=== PATIENT | male | born 1955 | race American Indian/Alaskan Native ===

== ENCOUNTER 2016-03-16 11:36 | Inpatient (IN) | payer MEDICARE ==
--- NOTE | 2016-03-16 12:38 | Emergency Department Report ---
Chief Complaint: Extremity Problem,Nontraumatic Stated Complaint: RT LEG PAIN Time Seen by Provider: 03/16/16 12:32 - HPI History of Present Illness: 60-year-old male with past medical history of HIV CVA kidney failure comes in today for worsening of this lower leg edema as well as penile edema. Patient reports her pain as a 10 out of 10 on both legs as well as his penis. As well as his right side of his arm has swelling as well he does have right sided weakness. Patient did have a pass medical history of dialysis and was taken off a couple months ago. He is followed across the street at the nephrologists [facility]. - Exam Vital Signs: Vital Signs 03/16/16 12:17 Temperature 99 F Pulse Rate 94 H Respiratory 16 Rate Blood Pressure 164/109 O2 Sat by Pulse 100 Oximetry Physical Exam: He is alert and oriented 3 cardiovascular S1-S2 regular rate and rhythm respiratory bilateral crackles in the base. Extremities 3+ edema bilateral penis edema no scrotal edema appreciated. Left upper arm fistula patent MSE screening note: Focused history and physical exam performed. Due to findings the following was ordered: Evaluated with provider. We will order a CBC CMP and BNP chest x-ray PT PTT. ED Disposition for MSE Condition: Stable
[2016-03-16 13:14] LABS: Hematocrit 40.7 % (35.5-45.6); Hemoglobin 12.7 gm/dl (11.8-15.2); Mean Corpuscular HGB Conc 31 % (32-34); Mean Corpuscular Hemoglobin 36 pg (28-32); Mean Corpuscular Volume 116 fl (84-94); Platelet Count 185 K/mm3 (140-440); Red Blood Count 3.51 M/mm3 (3.65-5.03); Red Cell Distribution Width 15.2 % (13.2-15.2); White Blood Count 5.6 K/mm3 (4.5-11.0)
[2016-03-16 13:36] LABS: INR 1.35 (0.87-1.13); Partial Thromboplastin Time 29.6 Sec. (24.2-36.6)
[2016-03-16 13:39] LABS: Albumin/Globulin Ratio 0.8 %; BUN/Creatinine Ratio 15.26; Bilirubin,Total 0.3 mg/dL (0.1-1.2); Calcium 8.3 mg/dL (8.4-10.2); Chloride 115.1 mmol/L (98-107); Potassium 4.1 mmol/L (3.6-5.0); Total Protein 6.7 g/dL (6.3-8.2)
--- NOTE | 2016-03-16 13:59 | XRay Report ---
ROUTINE CHEST, TWO VIEWS: HISTORY: Short of breath. No comparison. Heart size and pulmonary vascularity are within normal limits. Linear atelectasis or scarring is noted in the lower lung zones, left greater than right. There is no evidence for pneumonia, pleural effusion or pneumothorax. No CHF. The thoracic cage is intact. IMPRESSION: Linear scarring versus linear atelectasis in the lower lung zones. No acute cardiopulmonary process.
[2016-03-16 14:25] LABS: Bilirubin,Urine NEG (Negative); Blood,Urine NEG (Negative); Ketones,Urine NEG (Negative); Leukocyte Esterase,Urine NEG (Negative); Mucus,Urine FEW /HPF; Nitrite,Urine NEG (Negative); Urobilinogen,Urine < 2.0 mg/dL (<2.0)
[2016-03-16] MEDS ORDERED: DUONEB 0.5 MG-3 MG/3 ML SOLN IH ONE (20:58)
[2016-03-16] MEDS ORDERED: LASIX IV ONE (20:58)
--- NOTE | 2016-03-16 21:00 | Emergency Department Report ---
HPI - General Chief Complaint: Extremity Problem,Nontraumatic Time Seen by Provider: 03/16/16 12:32 - HPI HPI: This is a 60-year-old Afro-J[place] male who presents the emergency department by EMS from his personal fci, with his twin sister at bedside, with complaint of a 5-6 week history of progressively worsening lower extremity and right upper extremity swelling, and some shortness of breath. Patient has a history of previous CVA with right-sided hemiparesis, renal insufficiency with previous hemodialysis use. He has not been on dialysis since May. He has seen his db2 developer, Dr. Singleton, regarding his current symptoms and was placed on some sodium bicarbonate in it and pain medication without any relief. His primary care doctor is Dr. Durand. No recent travel. He denies any chest pain, nausea, vomiting or rash. No history of DVT, PE, AZ. ED Past Medical Hx - Past Medical History Previous Medical History?: Yes Hx Hypertension: Yes Hx CVA: Yes Hx Renal Disease: Yes (not on dialysis) Hx HIV: Yes - Surgical History Past Surgical History?: Yes Additional Surgical History: dialysis shunt to left upper arm - Social History Smoking Status: Never Smoker Substance Use Type: None - Medications Home Medications: Home Medications Medication Instructions Recorded Confirmed Last Taken Type Abacavir Sulfate/Lamivudine 1 each PO DAILY 03/16/16 03/16/16 03/16/16 History [Epzicom TAB] AtorvaSTATin [Lipitor] 40 mg PO DAILY 03/16/16 03/16/16 03/16/16 History Efavirenz [Sustiva] 600 mg PO DAILY 03/16/16 03/16/16 03/16/16 History Ferrous Sulfate [Feosol] 325 mg PO QDAY 03/16/16 03/16/16 03/16/16 History Labetalol HCl 300 mg PO BID 03/16/16 03/16/16 03/16/16 History Mirtazapine 30 mg PO DAILY 03/16/16 03/16/16 03/16/16 History Multivitamin with Iron [Tab-A-[place] 1 each PO DAILY 03/16/16 03/16/16 03/16/16 History with Iron] Phenytoin [Dilantin] 100 mg PO Q8HR 03/16/16 03/16/16 03/16/16 History Quetiapine Fumarate [QUEtiapine 400 mg PO QDAY 03/16/16 03/16/16 03/16/16 History Fumarate] Sodium Bicarbonate 650 mg PO BID 03/16/16 03/16/16 03/16/16 History amLODIPine [Norvasc] 5 mg PO DAILY 03/16/16 03/16/16 03/16/16 History traMADol [Ultram] 50 mg PO BID 03/16/16 03/16/16 03/16/16 History ED Review of Systems ROS: Stated complaint: RT LEG PAIN Other details as noted in HPI Comment: All other systems reviewed and negative Constitutional: denies: chills, fever Eyes: denies: eye pain, eye discharge, vision change ENT: denies: ear pain, throat pain Respiratory: shortness of breath. denies: cough Cardiovascular: edema. denies: chest pain Gastrointestinal: denies: abdominal pain, nausea, diarrhea Genitourinary: denies: urgency, dysuria Musculoskeletal: denies: back pain, joint swelling, arthralgia Skin: denies: rash, lesions Neurological: denies: headache, weakness, paresthesias Physical Exam - Physical Exam Vital Signs: Vital Signs 03/16/16 03/16/16 03/16/16 12:17 20:32 20:39 Temperature 99 F Pulse Rate 94 H 96 H 99 H Respiratory 16 22 16 Rate Blood Pressure 164/109 Blood Pressure 163/115 157/103 [Right] O2 Sat by Pulse 100 100 95 Oximetry Physical Exam: GENERAL: The patient is well-developed well-nourished. HEENT: Normocephalic. Atraumatic. Extraocular motions are intact. Patient has moist mucous membranes. Pupils equal reactive to light bilaterally. NECK: Supple. Trachea is midline. CHEST/LUNGS: Clear to auscultation. There is no respiratory distress noted. HEART/CARDIOVASCULAR: Regular. There is no tachycardia. There is no gallop rub or murmur. ABDOMEN: Abdomen is soft, nontender. Patient has normal bowel sounds. There is no abdominal distention. SKIN: Patient has 2+ pitting edema to the bilateral lower extremities. Patient has anasarca of the right upper extremity. NEURO: The patient is awake, alert, and oriented. The patient is cooperative. The patient has no acute focal neurologic deficits. Chronic right-sided hemiparesis. The patient has some stuttering speech and/or aphasia that is chronic. MUSCULOSKELETAL: There is no tenderness or deformity. There is a patent dialysis fistula to the left upper extremity. There is no evidence of acute injury. ED Course Vital Signs 03/16/16 03/16/16 03/16/16 12:17 20:32 20:39 Temperature 99 F Pulse Rate 94 H 96 H 99 H Respiratory 16 22 16 Rate Blood Pressure 164/109 Blood Pressure 163/115 157/103 [Right] O2 Sat by Pulse 100 100 95 Oximetry - EJ/Peripheral Line Neck R Time Out Performed: Yes Indications: nurses unable to establis Skin Cleansed in Sterile Fashion: Yes Size: 20 Dressing Placed: Tegaderm, tape Patient Tolerated Procedure: well ED Medical Decision Making - Lab Data Result diagrams: 03/16/16 12:49 03/16/16 12:49 - EKG Data -: EKG Interpreted by Me EKG shows normal: sinus rhythm, axis, intervals, QRS complexes, ST-T waves ( flattened or slightly inverse T waves to the inferior and lateral leads) Rate: normal - EKG Data When compared to previous EKG there are: previous EKG unavailable Interpretation: other (flattened or slightly inverse T waves to the inferior and lateral leads) - Radiology Data Radiology results: image reviewed interpreted by me: His x-ray shows some mild cardiomegaly. There is some mild vascular congestion but no overt pleural effusions. No pneumonia and no pneumothorax. - Medical Decision Making 60-year-old male with progressively worsening shortness of breath and lower extremity swelling as well as right upper extremity swelling. History of dialysis but currently just has some renal insufficiency. Patient has significant edema but does not have significant pleural effusions. BNP is about 25,000. EKG does not show any signs of ST elevation AZ or dysrhythmia. Vital signs stable but does show some mild hypertension. Patient started on diuresis. Will be admitted to hospital for further evaluation and treatment. Accepted for admission by the hospitalist, Dr Michel. - Differential Diagnosis CHF, Venous Stasis, AZ, Pneumonia Critical Care Time: No Critical care attestation.: If time is entered above; I have spent that time in minutes in the direct care of this critically ill patient, excluding procedure time. ED Disposition Clinical Impression: Bilateral lower extremity edema Hypertension Qualifiers: Hypertension type: essential hypertension Qualified Code(s): I10 - Essential ( primary) hypertension Dyspnea Qualifiers: Dyspnea type: shortness of breath Qualified Code(s): R06.02 - Shortness of breath CKD (chronic kidney disease) Qualifiers: Chronic kidney disease stage: unspecified stage Qualified Code(s): N18.9 - Chronic kidney disease, unspecified CHF (congestive heart failure) Qualifiers: Congestive heart failure type: unspecified congestive heart failure type Congestive heart failure chronicity: acute Qualified Code(s): I50.9 - Heart failure, unspecified Disposition: OP ADMITTED IP TO THIS HOSP Is pt being admited?: Yes Condition: Stable Instructions: Hypertension (ED) Time of Disposition: 22:21
--- NOTE | 2016-03-16 22:03 | History and Physical Report ---
History of Present Illness Date of examination: 03/16/16 Date of admission: 03/16/16 Chief complaint: SOB, LE edema History of present illness: This is a 60-year-old Afro-Bhutanese male who presents the emergency department by EMS from his personal fdc, with his twin sister at bedside, with complaint of a 5-6 week history of progressively worsening lower extremity and right upper extremity swelling, and some shortness of breath. Patient has a history of previous CVA with right-sided hemiparesis, renal insufficiency with previous hemodialysis use and HIV. He has not been on dialysis since May 2014. He has seen his plastic parts fabricator, Dr. Ingram, regarding his current symptoms and was placed on some sodium bicarbonate and pain medication without any relief. His primary care doctor is Dr. Duarnd. No recent travel. He denies any chest pain, nausea, vomiting or rash. No history of DVT, PE, [place]. Past History Past Medical History: hypertension, renal failure, stroke, other (HIV) Past Surgical History: No surgical history Social history: no significant social history Family history: no significant family history Medications and Allergies Allergies Allergy/AdvReac Type Severity Reaction Status Date / Time No Known Allergies Allergy Unverified 03/16/16 12:22 Home Medications Medication Instructions Recorded Confirmed Last Taken Type Abacavir Sulfate/Lamivudine 1 each PO DAILY 03/16/16 03/16/16 03/16/16 History [Epzicom TAB] AtorvaSTATin [Lipitor] 40 mg PO DAILY 03/16/16 03/16/16 03/16/16 History Efavirenz [Sustiva] 600 mg PO DAILY 03/16/16 03/16/16 03/16/16 History Ferrous Sulfate [Feosol] 325 mg PO QDAY 03/16/16 03/16/16 03/16/16 History Labetalol HCl 300 mg PO BID 03/16/16 03/16/16 03/16/16 History Mirtazapine 30 mg PO DAILY 03/16/16 03/16/16 03/16/16 History Multivitamin with Iron [Tab-A-[place] 1 each PO DAILY 03/16/16 03/16/16 03/16/16 History with Iron] Phenytoin [Dilantin] 100 mg PO Q8HR 03/16/16 03/16/16 03/16/16 History Quetiapine Fumarate [QUEtiapine 400 mg PO QDAY 03/16/16 03/16/16 03/16/16 History Fumarate] Sodium Bicarbonate 650 mg PO BID 03/16/16 03/16/16 03/16/16 History amLODIPine [Norvasc] 5 mg PO DAILY 03/16/16 03/16/16 03/16/16 History traMADol [Ultram] 50 mg PO BID 03/16/16 03/16/16 03/16/16 History Review of Systems All systems: negative Exam - Constitutional Vitals: Temp Pulse Resp BP Pulse Ox 99 F 99 H 18 157/103 95 03/16/16 12:17 03/16/16 21:41 03/16/16 21:41 03/16/16 20:39 03/16/16 20:39 General appearance: Present: no acute distress, well-nourished - EENT Eyes: Present: PERRL ENT: hearing intact, clear oral mucosa - Neck Neck: Present: supple, normal ROM - Respiratory Respiratory effort: normal Respiratory: bilateral: diminished, rales - Cardiovascular Heart Sounds: Present: S1 & S2. Absent: rub, click - Extremities Extremities: pulses symmetrical Extremity abnormal: edema Peripheral Pulses: within normal limits - Abdominal General gastrointestinal: Present: soft, non-tender, non-distended, normal bowel sounds Male genitourinary: Present: normal - Integumentary Integumentary: Present: clear, warm, dry - Musculoskeletal Musculoskeletal: gait normal, strength equal bilaterally - Psychiatric Psychiatric: appropriate mood/affect, intact judgment & insight - Neurologic Neurologic: CNII-XII intact, moves all extremities Results - Labs CBC & Chem 7: 03/16/16 12:49 03/16/16 12:49 Labs: Laboratory Last Values WBC 5.6 K/mm3 (4.5-11.0) 03/16/16 12:49 RBC 3.51 M/mm3 (3.65-5.03) L 03/16/16 12:49 Hgb 12.7 gm/dl (11.8-15.2) 03/16/16 12:49 Hct 40.7 % (35.5-45.6) 03/16/16 12:49 MCV 116 fl (84-94) H 03/16/16 12:49 MCH 36 pg (28-32) H 03/16/16 12:49 MCHC 31 % (32-34) L 03/16/16 12:49 RDW 15.2 % (13.2-15.2) 03/16/16 12:49 Plt Count 185 K/mm3 (140-440) 03/16/16 12:49 PT 16.6 Sec. (12.2-14.9) H 03/16/16 12:49 INR 1.35 (0.87-1.13) H 03/16/16 12:49 APTT 29.6 Sec. (24.2-36.6) 03/16/16 12:49 Sodium 147 mmol/L (137-145) H 03/16/16 12:49 Potassium 4.1 mmol/L (3.6-5.0) 03/16/16 12:49 Chloride 115.1 mmol/L (98-107) H 03/16/16 12:49 Carbon Dioxide 19 mmol/L (22-30) L 03/16/16 12:49 Anion Gap 17 mmol/L 03/16/16 12:49 BUN 29 mg/dL (9-20) H 03/16/16 12:49 Creatinine 1.9 mg/dL (0.8-1.5) H 03/16/16 12:49 Estimated GFR 44 ml/min 03/16/16 12:49 BUN/Creatinine Ratio 15.26 % 03/16/16 12:49 Glucose 81 mg/dL (75-100) 03/16/16 12:49 Calcium 8.3 mg/dL (8.4-10.2) L 03/16/16 12:49 Total Bilirubin 0.3 mg/dL (0.1-1.2) 03/16/16 12:49 AST 22 units/L (5-40) 03/16/16 12:49 ALT 17 units/L (7-56) 03/16/16 12:49 Alkaline Phosphatase 154 units/L (35-129) H 03/16/16 12:49 NT-Pro-B Natriuret Pep 64220 pg/mL (0-900) H 03/16/16 12:49 Total Protein 6.7 g/dL (6.3-8.2) 03/16/16 12:49 Albumin 3.0 g/dL (3.9-5) L 03/16/16 12:49 Albumin/Globulin Ratio 0.8 % 03/16/16 12:49 Urine Color Yellow (Yellow) 03/16/16 Unknown Urine Turbidity Clear (Clear) 03/16/16 Unknown Urine pH 6.0 (5.0-7.0) 03/16/16 Unknown Ur Specific [place] 1.016 (1.003-1.030) 03/16/16 Unknown Urine Protein 100 mg/dl mg/dL (Negative) 03/16/16 Unknown Urine Glucose (UA) Neg mg/dL (Negative) 03/16/16 Unknown Urine Ketones Neg mg/dL (Negative) 03/16/16 Unknown Urine Blood Neg (Negative) 03/16/16 Unknown Urine Nitrite Neg (Negative) 03/16/16 Unknown Urine Bilirubin Neg (Negative) 03/16/16 Unknown Urine Urobilinogen < 2.0 mg/dL (<2.0) 03/16/16 Unknown Ur Leukocyte Esterase Neg (Negative) 03/16/16 Unknown Urine WBC (Auto) 1.0 /HPF (0.0-6.0) 03/16/16 Unknown Urine RBC (Auto) 7.0 /HPF (0.0-6.0) 03/16/16 Unknown U Epithel Cells (Auto) < 1.0 /HPF (0-13.0) 03/16/16 Unknown Urine Mucus Few /HPF 03/16/16 Unknown Phenytoin 2.5 mg/L (10.0-20.0) L 03/16/16 12:49 Assessment and Plan Assessment and plan: 1. Acute hypoxic respiratory failure. Etiology likely secondary to volume overload and possible new onset heart failure. Patient will be continued on O2 for supportive care monitor closely. Other possible etiologies may be related to PE. Check d-dimer and bilateral lower extremity Dopplers. Consider CTA chest. 2. Acute congestive heart failure exacerbation. Patient will be placed on heart failure pathway and monitor closely. We will follow echocardiogram to determine systolic or diastolic or combined etiology. Consider cardiology consultation. 3. Acute on CKD. We'll consult his primary plastic parts fabricator Dr. Ingram. 4. Bilateral lower extremity edema. Check Dopplers. 5. History of CVA with right sided residual weakness. PT/OT when stable. 6. Accelerated hypertension. Resume antihypertensive medications. 7. HIV. Continue medications. Consider ID consultation.
[2016-03-16] MEDS ORDERED: TYLENOL PO PRN (22:09)
[2016-03-16] MEDS ORDERED: ZOFRAN IV PRN (22:09)
[2016-03-16] MEDS ORDERED: DULCOLAX PR PRN (22:09)
[2016-03-16] MEDS ORDERED: MILK OF MAGNESIA PO PRN (22:09)
--- NOTE | 2016-03-16 23:05 | Admit Criteria Form ---
Admission Criteria Documentation: HEART FAILURE: COMMON COMPLICATIONS Clinical Indications for Inpatient Care (Place 'X' for any and all applicable criteria): Ongoing inpatient care may be indicated for heart failure with ANY ONE of the following (1)(2)(3)(4)(5): [ ]I. Ongoing need for care for primary condition requiring frequent therapy adjustments because of changes in cardiac function (eg, drug dosage changes for drugs that are renally metabolized) [ ]II. New-onset heart failure [ ]III. Heart failure with decreased urine output not responsive to attempts to optimize volume status [ ]IV. Acute cardiac ischemia causing or associated with failure [X ]V. Complications of heart failure, including ANY ONE of the following: [ ]a) Pericardial effusion [ ]b) Symptomatic pleural effusion [ ]c) O2 saturation <90% or PO2 < 60 mm Hg (8.0 kPa) on room air or require baseline supplemental O2 [ ]d) Tachypnea [ X]e) Dyspnea [ ]f) Syncope [ ]g) Change in mental status [ ]h) Acute renal insufficiency that is severe (reduction of more than 50% in estimated glomerular filtration rate from baseline) or progressive reduction of more than 25% in estimated glomerular filtration rate from baseline, with creatinine continuing to rise) [ ]i) Hemodynamic instability [ ]j) Anasarca [ ]k) Clinically significant metabolic abnormalities due to heart failure (eg, new-onset metabolic acidosis) Extended stay beyond goal length of stay for primary condition may be needed until ALL of the following are present(1)(3): [ ]a) Stable and effective diuretic regimen established (or patient on stable dialysis regimen if in chronic renal failure) [ ]b) Breathing comfortably at rest [ ]c) Saturation of arterial oxygen greater than 90% or at acceptable baseline [ ]d) Pulmonary edema absent or improved [ ]e) Hemodynamic stability [ ]f) Volume status acceptable on oral medication [ ]g) Peripheral or sacral edema absent or improved [ ]h) Renal function stable and manageable at a lower level of care [ ]i) Complications (eg, pleural effusion) resolved or manageable at a lower level of care [ ]j) Patient or caregiver has received written discharge instructions or educational material addressing activity level, diet, discharge medications, follow-up appointment, weight monitoring, and what to do if symptoms worsen The original [facility] content created by [employer] has been revised. The portions of the content which have been revised are identified through the use of italic text or in bold, and [facility] has neither reviewed nor approved the modified material.All other unmodified content is copyright [facility]. Please see references footnoted in the original [facility] edition 2016 Admission Criteria Met: Yes
[2016-03-17] MEDS: DILANTIN PO SCH ×3 (05:31→21:12)
[2016-03-17 06:36] LABS: Basophils % (Auto) 0.8 % (0.0-1.8); Eosinophils % (Auto) 4.2 % (0.0-4.3); Hematocrit 35.2 % (35.5-45.6); Hemoglobin 11.6 gm/dl (11.8-15.2); Mean Corpuscular HGB Conc 33 % (32-34); Mean Corpuscular Hemoglobin 37 pg (28-32); Platelet Count 169 K/mm3 (140-440); Red Blood Count 3.12 M/mm3 (3.65-5.03); Red Cell Distribution Width 14.6 % (13.2-15.2); White Blood Count 6.1 K/mm3 (4.5-11.0)
[2016-03-17 06:52] LABS: Mean Corpuscular Volume 113 fl (84-94)
[2016-03-17 07:01] LABS: BUN/Creatinine Ratio 15.23; Calcium 7.8 mg/dL (8.4-10.2); Chloride 111.9 mmol/L (98-107); Potassium 4.3 mmol/L (3.6-5.0)
[2016-03-17] MEDS ORDERED: APRESOLINE IV PRN (09:17)
[2016-03-17] MEDS: SUSTIVA PO SCH (09:42)
[2016-03-17] MEDS: EPIVIR PO SCH (09:42)
[2016-03-17] MEDS: ZIAGEN PO SCH (09:42)
[2016-03-17] MEDS: FEOSOL PO SCH (09:43)
[2016-03-17] MEDS: THERAGRAN-M Tab PO SCH (09:43)
[2016-03-17] MEDS: NORMODYNE PO SCH ×2 (09:43→21:12)
[2016-03-17] MEDS: NORVASC PO SCH (09:43)
[2016-03-17] MEDS: SODIUM BICARBONATE PO SCH ×2 (09:43→21:12)
[2016-03-17] MEDS: LASIX IV SCH (09:43)
[2016-03-17] MEDS: REMERON PO SCH (09:43)
[2016-03-17] MEDS: LOVENOX SUB-Q SCH (09:44)
[2016-03-17] MEDS ORDERED: EFAVIRENZ 600 MG PO SCH (10:00)
[2016-03-17] MEDS ORDERED: ABACAVIR SULFATE PO SCH (10:00)
[2016-03-17] MEDS ORDERED: MULTIVITAMIN WITH IRON PO SCH (10:00)
[2016-03-17] MEDS ORDERED: NON-FORMULARY (Labetalol Hcl [Labetalol Hcl] 300 MG) PO SCH (10:00)
[2016-03-17] MEDS ORDERED: NON-FORMULARY (Quetiapine Fumarate [Quetiapine Fumarate] 400 MG) PO SCH (10:00)
[2016-03-17] MEDS ORDERED: LAMIVUDINE PO SCH (10:00)
[2016-03-17] MEDS: HABITROL TD SCH (12:00)
--- NOTE | 2016-03-17 12:43 | Consultation ---
History of Present Illness Consult date: 03/17/16 Requesting physician: JUAN DIEGO MICHEL Consult reason: congestive heart failure History of present illness: The history was obtained from the medical record as the patient has expressive aphasia. The patient is a 60 year old male with a history of CVA, chronic kidney disease, HIV who presented from his personal prison with complaints of worsening lower extremity edema and shortness of breath over the past several weeks. No chest pain. BNP 83083. BUN 32 with a creatinine of 2.1. D- dimer 1467. According to ER documentation, the patient has previously required dialysis but has not been on dialysis since May 2014. Past History Past Medical History: hypertension, renal failure, stroke, other (HIV) Past Surgical History: No surgical history Social history: other (lives in a personal prison) Family history: no significant family history Medications and Allergies Allergies Allergy/AdvReac Type Severity Reaction Status Date / Time No Known Allergies Allergy Verified 03/16/16 22:19 Home Medications Medication Instructions Recorded Confirmed Last Taken Type Abacavir Sulfate/Lamivudine 1 each PO DAILY 03/16/16 03/16/16 03/16/16 History [Epzicom TAB] AtorvaSTATin [Lipitor] 40 mg PO DAILY 03/16/16 03/16/16 03/16/16 History Efavirenz [Sustiva] 600 mg PO DAILY 03/16/16 03/16/16 03/16/16 History Ferrous Sulfate [Feosol] 325 mg PO QDAY 03/16/16 03/16/16 03/16/16 History Labetalol HCl 300 mg PO BID 03/16/16 03/16/16 03/16/16 History Mirtazapine 30 mg PO DAILY 03/16/16 03/16/16 03/16/16 History Multivitamin with Iron [Tab-A-Grayson 1 each PO DAILY 03/16/16 03/16/16 03/16/16 History with Iron] Phenytoin [Dilantin] 100 mg PO Q8HR 03/16/16 03/16/16 03/16/16 History Quetiapine Fumarate [QUEtiapine 400 mg PO QDAY 03/16/16 03/16/16 03/16/16 History Fumarate] Sodium Bicarbonate 650 mg PO BID 03/16/16 03/16/16 03/16/16 History amLODIPine [Norvasc] 5 mg PO DAILY 03/16/16 03/16/16 03/16/16 History traMADol [Ultram] 50 mg PO BID 03/16/16 03/16/16 03/16/16 History Active Meds: Active Medications Abacavir Sulfate (Ziagen) 600 mg PO DAILY [facility] Last Admin: 03/17/16 09:42 Dose: 600 mg Acetaminophen (Tylenol) 650 mg PO Q4H PRN PRN Reason: Pain MILD(1-3)/Fever >100.5/BARLOW Amlodipine Besylate (Norvasc) 5 mg PO DAILY [facility] Last Admin: 03/17/16 09:43 Dose: 5 mg Atorvastatin Calcium (Lipitor) 40 mg PO DAILY [facility] Last Admin: 03/17/16 09:43 Dose: 40 mg Bisacodyl (Dulcolax) 10 mg AK QDAY PRN PRN Reason: Constipation unrelieved by MOM Efavirenz (Sustiva) 600 mg PO DAILY [facility] Last Admin: 03/17/16 09:42 Dose: 600 mg Enoxaparin Sodium (Lovenox) 40 mg SUB-Q QDAY [facility] Last Admin: 03/17/16 09:44 Dose: 40 mg Ferrous Sulfate (Feosol) 325 mg PO QDAY [facility] Last Admin: 03/17/16 09:43 Dose: 325 mg Furosemide (Lasix) 20 mg IV QDAY [facility] Last Admin: 03/17/16 09:43 Dose: 20 mg Hydralazine HCl (Apresoline) 10 mg IV Q4HR PRN PRN Reason: Hypertension Labetalol HCl (Normodyne) 300 mg PO BID [facility] Last Admin: 03/17/16 09:43 Dose: 300 mg Lamivudine (Epivir) 300 mg PO DAILY [facility] Last Admin: 03/17/16 09:42 Dose: 300 mg Magnesium Hydroxide (Milk Of Magnesia) 30 ml PO Q4H PRN PRN Reason: Constipation Mirtazapine (Remeron) 30 mg PO DAILY [facility] Last Admin: 03/17/16 09:43 Dose: 30 mg Multivitamins/Minerals (Theragran-M Tab) 1 each PO QDAY [facility] Last Admin: 03/17/16 09:43 Dose: 1 each Nicotine (Habitrol) 21 mg TD QDAY [facility] Last Admin: 03/17/16 12:00 Dose: 21 mg Ondansetron HCl (Zofran) 4 mg IV Q8H PRN PRN Reason: N/V unrelieved by Reglan Phenytoin (Dilantin) 100 mg PO Q8HR [facility] Last Admin: 03/17/16 05:31 Dose: 100 mg Quetiapine Fumarate (Seroquel) 400 mg PO QDAY [facility] Last Admin: 03/17/16 09:42 Dose: 400 mg Sodium Bicarbonate (Sodium Bicarbonate) 650 mg PO BID [facility] Last Admin: 03/17/16 09:43 Dose: 650 mg Review of Systems ROS unobtainable: due to mental status Physical Examination Vital Signs Temp Pulse Resp BP Pulse Ox 99 F 94 H 16 164/109 100 03/16/16 12:17 03/16/16 12:17 03/16/16 12:17 03/16/16 12:17 03/16/16 12:17 General appearance: no acute distress HEENT: Positive: Normocephaly, Mucus Membranes Moist Neck: Positive: neck supple, trachea midline Cardiac: Positive: Reg Rate and Rhythm, S1/S2 Lungs: Positive: clear to auscultation Neuro: Positive: Other (right hemiparesis, expressive aphasia) Abdomen: Positive: Soft, Active Bowel Sounds. Negative: Tender Skin: Negative: Rash Extremities: Present: +2 Edema (bilateral lower legs) Results 03/17/16 05:55 03/17/16 05:55 CBC 03/17/16 Range/Units 05:55 WBC 6.1 (4.5-11.0) K/mm3 RBC 3.12 L (3.65-5.03) M/mm3 Hgb 11.6 L (11.8-15.2) gm/dl Hct 35.2 L (35.5-45.6) % Plt Count 169 (140-440) K/mm3 Lymph # 1.9 (1.2-5.4) K/mm3 Milam # 0.6 (0.0-0.8) K/mm3 Eos # 0.3 (0.0-0.4) K/mm3 Baso # 0.0 (0.0-0.1) K/mm3 Comprehensive Metabolic Panel 03/17/16 Range/Units 05:55 Carbon Dioxide 18 L (22-30) mmol/L BUN 32 H (9-20) mg/dL Creatinine 2.1 H (0.8-1.5) mg/dL Glucose 90 (75-100) mg/dL Calcium 7.8 L (8.4-10.2) mg/dL - Imaging and Cardiology Echo: pending EKG interpretations - Telemetry EKG Rhythm: Sinus Rhythm Assessment and Plan Possible heart failure await echo findings Acute on chronic kidney disease await nephrology recommendations Hypertension stable continue norvasc/labetalol/hydralazine History of CVA with right sided residual weakness and expressive aphasia HIV Await echo findings. The patient has been seen in conjunction with Dr. Michael who agrees with the assessment and plan of care. Thank you Dr. Michel for allowing us to participate in the care of this patient.
--- NOTE | 2016-03-17 13:19 | Echocardiography Report ---
Transthoracic Echocardiogram Indication: CHF BP: 134/87 HR: 81 Conclusions *Global left ventricular systolic function is moderate to severely decreased. *The estimated ejection fraction is 25-30%. *There is moderate mitral regurgitation. *The left atrium is moderately dilated. *There is moderate tricuspid regurgitation. *The right ventricle wall thickness is mildly increased. *The right ventricle is mildly dilated. *The right atrium is mild to moderately dilated. *The right ventricular systolic pressure is estimated to be 65-70 mmHg. *There is evidence of severe pulmonary hypertension. *There is moderate pulmonic regurgitation. *The inferior vena cava is dilated. *There is no pericardial effusion. Findings Procedure Info: The study quality is good. Left Ventricle: Global left ventricular systolic function is moderate to severely decreased. The estimated ejection fraction is 25-30%. Left Atrium: The left atrium is moderately dilated. Right Ventricle: The right ventricle wall thickness is mildly increased. The right ventricle is mildly dilated. The right ventricular global systolic function is mildly reduced. Right Atrium: The right atrium is mild to moderately dilated. The interatrial septum bowed toward the left. Aortic Valve: The aortic valve is trileaflet. There is moderate thickening of the right coronary cusp. Systolic excursion of the aortic valve is normal. There is no evidence of aortic regurgitation. There is no evidence of aortic stenosis. Mitral Valve: The mitral valve leaflets appear normal. There is moderate mitral regurgitation. There is no evidence of mitral stenosis. Tricuspid Valve: There is moderate tricuspid regurgitation. The right ventricular systolic pressure is calculated at 66 mmHg. The right ventricular systolic pressure is estimated to be 65-70 mmHg. There is evidence of severe pulmonary hypertension. There is no tricuspid stenosis. Pulmonic Valve: The pulmonic valve has a dilated annulus. There is moderate pulmonic regurgitation. There is no pulmonic stenosis. Pericardium: There is no pericardial effusion. No pleural effusion is present. Venous: The inferior vena cava appears abnormal. The inferior vena cava is dilated. There is less than 50% respiratory change in the inferior vena cava dimension. Measurements Chambers 2D Name Value Normal Range IVSd (2D) 1.12 cm (0.6 - 1.1) LVPWd 1.2 cm - LVPWd (2D) 1.17 cm (0.6 - 1.1) IVS:LVPW ratio (2D) 0.96 ratio - LVIDd 5.4 cm - LVIDs 4.6 cm - LVIDd (2D) 5.39 cm (3.7 - 5.6) LVIDs (2D) 4.55 cm (2 - 3.8) LV FS (Teichholz) (2D) 15.6 % - LV FS (cube) (2D) 15.6 % - LV EF (2D) 32 % - EF Teichholz (2D) 32.7 % - LA dimension 5.2 cm - Ao root diameter (2D) 3.6 cm (2 - 3.7) LA dimension (AP) 2D 5 cm (1.9 - 4) LA:Ao ratio (2D) 1.39 ratio - Volumes/Mass Name Value Normal Range LA ESV SP 4CH (MOD) 99 ml - LV EDV SP 4CH (MOD) 86 ml - LV ESV SP 4CH (MOD) 56 ml - EF SP 4CH (MOD) 35 % - Diastolic/Systolic Function Name Value Normal Range MV E-wave Vmax 0.87 m/sec - MV deceleration time 187 msec - MV A-wave Vmax 0.34 m/sec - MV E:A ratio 2.5 ratio - LV septal e' Vmax 0.07 m/sec - LV lateral e' Vmax 0.12 m/sec - LV E:e' septal ratio 12.6 ratio - LV E:e' lateral ratio 7 ratio - Aortic Valve Name Value Normal Range AV Vmax 1.19 m/sec - AV peak gradient 6 mmHg - LVOT diameter 2 cm - LVOT Vmax 0.72 m/sec - LVOT peak gradient 2 mmHg - FACUNDO (continuity Vmax) 1.89 cm2 - Mitral Valve Name Value Normal Range MR Vmax 5.24 m/sec - MR VTI 164 cm - MR flow (PISA) 197.7 ml/sec - MR PISA radius 0.6 cm - MR alias Vmax 87.5 cm/sec - Tricuspid Valve Name Value Normal Range TR Vmax 3.58 m/sec - TR peak gradient 51 mmHg - RAP 15 mmHg - RVSP 66 mmHg - Pulmonic Valve/Qp:Qs Name Value Normal Range PV Vmax 0.55 m/sec - PV peak gradient 1 mmHg - SD end-diastolic Vmax 1.76 m/sec - PV acceleration time 92 msec -
--- NOTE | 2016-03-17 13:35 | Progress Note ---
Assessment and Plan Assessment and plan: The history was obtained from the medical record as the patient has expressive aphasia. The patient is a 60 year old male with a history of CVA, chronic kidney disease, HIV who presented from his personal nursing home with complaints of worsening lower extremity edema and shortness of breath over the past several weeks. No chest pain. BNP 29272. BUN 32 with a creatinine of 2.1. D- dimer 1467. According to ER documentation, the patient has previously required dialysis but has not been on dialysis since May 2014 * Acute on chronic systolic congestive heart failure * Acute hypoxic respiratory failure improved * Acute kidney injury on chronic kidney disease-presented on admission * Bilateral lower extremity edema likely secondary to heart failure * Hypertension * History of CVA * Right-sided hemiplegia and expressive aphasia * HIV * skilled nursing resident * Tobacco abuse PLAN: * Consider IV Lasix at this time to close attention to renal function. * Continue labetalol, when necessary hydralazine, Norvasc Norvasc may need to discontinue due to bilateral lower extremity edema although this is from the heart failure. * Cardiology input noted echocardiogram reviewed EF 25-30% * Physical therapy evaluate and treat * 15 minutes of counseling provided for the patient to quit tobacco use patient verbalized understanding. * DVT and GI prophylaxis History Interval history: Follow-up shortness of breath Patient seen and examined this morning in no acute distress, but weak Denies any chest pain, nausea, vomiting, diarrhea No fever noted blood pressure controlled No adverse events reported to me by nursing staff Hospitalist Physical - Physical exam Narrative exam: VITAL SIGNS: Reviewed. GENERAL: The patient appeared well nourished and normally developed. Vital signs as documented. HEAD: No signs of head trauma. EYES: Pupils are equal. Extraocular motions intact. EARS: Hearing grossly intact. MOUTH: Oropharynx is normal. NECK: No adenopathy, no JVD. CHEST: Chest with clear breath sounds bilaterally. No wheezes, rales, or rhonchi. CARDIAC: Regular rate and rhythm. S1 and S2, without murmurs, gallops, or rubs. VASCULAR: +2 pitting Edema. Peripheral pulses normal and equal in all extremities. ABDOMEN: Soft, without detectable tenderness. No sign of distention. No rebound or guarding, and no masses palpated. Bowel Sounds normal. MUSCULOSKELETAL: Wheelchair bound. Extremities without clubbing, cyanosis +2 pitting edema. NEUROLOGIC EXAM: Alert and oriented x 3. Aphasic speech, answers in one syllables. Right hemiplegia. Follows commands. PSYCHIATRIC: Mood normal. SKIN: No rash or lesions. - Constitutional Vitals: Temp Pulse Resp BP Pulse Ox 97.7 F 80 20 129/81 97 03/17/16 12:10 03/17/16 12:10 03/17/16 12:10 03/17/16 12:10 03/17/16 12:10 General appearance: Present: no acute distress Results - Labs CBC & Chem 7: 03/17/16 05:55 03/17/16 05:55 Labs: Laboratory Last Values WBC 6.1 K/mm3 (4.5-11.0) 03/17/16 05:55 RBC 3.12 M/mm3 (3.65-5.03) L 03/17/16 05:55 Hgb 11.6 gm/dl (11.8-15.2) L 03/17/16 05:55 Hct 35.2 % (35.5-45.6) L 03/17/16 05:55 MCV 113 fl (84-94) H D 03/17/16 05:55 MCH 37 pg (28-32) H 03/17/16 05:55 MCHC 33 % (32-34) 03/17/16 05:55 RDW 14.6 % (13.2-15.2) 03/17/16 05:55 Plt Count 169 K/mm3 (140-440) 03/17/16 05:55 Lymph % (Auto) 31.0 % (13.4-35.0) 03/17/16 05:55 Whitfield % (Auto) 10.5 % (0.0-7.3) H 03/17/16 05:55 Eos % (Auto) 4.2 % (0.0-4.3) 03/17/16 05:55 Baso % (Auto) 0.8 % (0.0-1.8) 03/17/16 05:55 Lymph # 1.9 K/mm3 (1.2-5.4) 03/17/16 05:55 Whitfield # 0.6 K/mm3 (0.0-0.8) 03/17/16 05:55 Eos # 0.3 K/mm3 (0.0-0.4) 03/17/16 05:55 Baso # 0.0 K/mm3 (0.0-0.1) 03/17/16 05:55 Seg Neutrophils % 53.5 % (40.0-70.0) 03/17/16 05:55 Seg Neutrophils # 3.3 K/mm3 (1.8-7.7) 03/17/16 05:55 PT 16.6 Sec. (12.2-14.9) H 03/16/16 12:49 INR 1.35 (0.87-1.13) H 03/16/16 12:49 APTT 29.6 Sec. (24.2-36.6) 03/16/16 12:49 D-Dimer 1467.09 ng/mlDDU (0-234) H 03/17/16 05:55 Sodium 147 mmol/L (137-145) H 03/16/16 12:49 Potassium 4.1 mmol/L (3.6-5.0) 03/16/16 12:49 Chloride 115.1 mmol/L (98-107) H 03/16/16 12:49 Carbon Dioxide 18 mmol/L (22-30) L 03/17/16 05:55 Anion Gap 17 mmol/L 03/16/16 12:49 BUN 32 mg/dL (9-20) H 03/17/16 05:55 Creatinine 2.1 mg/dL (0.8-1.5) H 03/17/16 05:55 Estimated GFR 39 ml/min 03/17/16 05:55 BUN/Creatinine Ratio 15.23 % 03/17/16 05:55 Glucose 90 mg/dL (75-100) 03/17/16 05:55 Calcium 7.8 mg/dL (8.4-10.2) L 03/17/16 05:55 Total Bilirubin 0.3 mg/dL (0.1-1.2) 03/16/16 12:49 AST 22 units/L (5-40) 03/16/16 12:49 ALT 17 units/L (7-56) 03/16/16 12:49 Alkaline Phosphatase 154 units/L (35-129) H 03/16/16 12:49 NT-Pro-B Natriuret Pep 53146 pg/mL (0-900) H 03/16/16 12:49 Total Protein 6.7 g/dL (6.3-8.2) 03/16/16 12:49 Albumin 3.0 g/dL (3.9-5) L 03/16/16 12:49 Albumin/Globulin Ratio 0.8 % 03/16/16 12:49 Urine Color Yellow (Yellow) 03/16/16 Unknown Urine Turbidity Clear (Clear) 03/16/16 Unknown Urine pH 6.0 (5.0-7.0) 03/16/16 Unknown Ur Specific Kimper 1.016 (1.003-1.030) 03/16/16 Unknown Urine Protein 100 mg/dl mg/dL (Negative) 03/16/16 Unknown Urine Glucose (UA) Neg mg/dL (Negative) 03/16/16 Unknown Urine Ketones Neg mg/dL (Negative) 03/16/16 Unknown Urine Blood Neg (Negative) 03/16/16 Unknown Urine Nitrite Neg (Negative) 03/16/16 Unknown Urine Bilirubin Neg (Negative) 03/16/16 Unknown Urine Urobilinogen < 2.0 mg/dL (<2.0) 03/16/16 Unknown Ur Leukocyte Esterase Neg (Negative) 03/16/16 Unknown Urine WBC (Auto) 1.0 /HPF (0.0-6.0) 03/16/16 Unknown Urine RBC (Auto) 7.0 /HPF (0.0-6.0) 03/16/16 Unknown U Epithel Cells (Auto) < 1.0 /HPF (0-13.0) 03/16/16 Unknown Urine Mucus Few /HPF 03/16/16 Unknown Phenytoin 2.5 mg/L (10.0-20.0) L 03/16/16 12:49 - Imaging and Cardiology Chest x-ray: image reviewed (fluid overload noted on the Wilson)
[2016-03-18] MEDS: DILANTIN PO SCH (05:39)
--- NOTE | 2016-03-18 06:31 | Consultation ---
History of Present Illness - Reason for Consult Consult date: 03/17/16 chronic renal failure - History of Present Illness Patient is a 60yo gentleman who presents the emergency department by EMS from his personal residential with complaint of a 5-6 week history of progressively worsening lower extremity and right upper extremity swelling, and some shortness of breath. Patient has a history of previous CVA with right-sided hemiparesis, renal insufficiency with previous hemodialysis use and HIV. He has a hx of DONNA requiring HD but has not been on dialysis since May 2014. Past History Past Medical History: hypertension, renal failure, stroke, other (HIV) Past Surgical History: No surgical history Social history: other (lives in a personal residential) Family history: no significant family history Medications and Allergies Allergies Allergy/AdvReac Type Severity Reaction Status Date / Time No Known Allergies Allergy Verified 03/16/16 22:19 Home Medications Medication Instructions Recorded Confirmed Last Taken Type Abacavir Sulfate/Lamivudine 1 each PO DAILY 03/16/16 03/16/16 03/16/16 History [Epzicom TAB] AtorvaSTATin [Lipitor] 40 mg PO DAILY 03/16/16 03/16/16 03/16/16 History Efavirenz [Sustiva] 600 mg PO DAILY 03/16/16 03/16/16 03/16/16 History Ferrous Sulfate [Feosol] 325 mg PO QDAY 03/16/16 03/16/16 03/16/16 History Labetalol HCl 300 mg PO BID 03/16/16 03/16/16 03/16/16 History Mirtazapine 30 mg PO DAILY 03/16/16 03/16/16 03/16/16 History Multivitamin with Iron [Tab-A-Grayson 1 each PO DAILY 03/16/16 03/16/16 03/16/16 History with Iron] Phenytoin [Dilantin] 100 mg PO Q8HR 03/16/16 03/16/16 03/16/16 History Quetiapine Fumarate [QUEtiapine 400 mg PO QDAY 03/16/16 03/16/16 03/16/16 History Fumarate] Sodium Bicarbonate 650 mg PO BID 03/16/16 03/16/16 03/16/16 History amLODIPine [Norvasc] 5 mg PO DAILY 03/16/16 03/16/16 03/16/16 History traMADol [Ultram] 50 mg PO BID 03/16/16 03/16/16 03/16/16 History Active Meds: Active Medications Abacavir Sulfate (Ziagen) 600 mg PO DAILY [facility] Last Admin: 03/17/16 09:42 Dose: 600 mg Acetaminophen (Tylenol) 650 mg PO Q4H PRN PRN Reason: Pain MILD(1-3)/Fever >100.5/[place] Amlodipine Besylate (Norvasc) 5 mg PO DAILY [facility] Last Admin: 03/17/16 09:43 Dose: 5 mg Atorvastatin Calcium (Lipitor) 40 mg PO DAILY [facility] Last Admin: 03/17/16 09:43 Dose: 40 mg Bisacodyl (Dulcolax) 10 mg SD QDAY PRN PRN Reason: Constipation unrelieved by MOM Efavirenz (Sustiva) 600 mg PO DAILY [facility] [place] Last Admin: 03/17/16 09:42 Dose: 600 mg Enoxaparin Sodium (Lovenox) 40 mg SUB-Q QDAY [facility] [place] Last Admin: 03/17/16 09:44 Dose: 40 mg Ferrous Sulfate (Feosol) 325 mg PO QDAY [facility] Last Admin: 03/17/16 09:43 Dose: 325 mg Furosemide (Lasix) 20 mg IV QDAY [facility] Last Admin: 03/17/16 09:43 Dose: 20 mg Hydralazine HCl (Apresoline) 10 mg IV Q4HR PRN PRN Reason: Hypertension Labetalol HCl (Normodyne) 300 mg PO BID [facility] Last Admin: 03/17/16 21:12 Dose: 300 mg Lamivudine (Epivir) 300 mg PO DAILY [facility] Last Admin: 03/17/16 09:42 Dose: 300 mg Magnesium Hydroxide (Milk Of Magnesia) 30 ml PO Q4H PRN PRN Reason: Constipation Mirtazapine (Remeron) 30 mg PO DAILY [facility] Last Admin: 03/17/16 09:43 Dose: 30 mg Multivitamins/Minerals (Theragran-M Tab) 1 each PO QDAY [facility] Last Admin: 03/17/16 09:43 Dose: 1 each Nicotine (Habitrol) 21 mg TD QDAY [facility] Last Admin: 03/17/16 12:00 Dose: 21 mg Ondansetron HCl (Zofran) 4 mg IV Q8H PRN PRN Reason: N/V unrelieved by Reglan Phenytoin (Dilantin) 100 mg PO Q8HR [facility] Last Admin: 03/18/16 05:39 Dose: 100 mg Quetiapine Fumarate (Seroquel) 400 mg PO QDAY [facility] Last Admin: 03/17/16 09:42 Dose: 400 mg Sodium Bicarbonate (Sodium Bicarbonate) 650 mg PO BID [facility] Last Admin: 03/17/16 21:12 Dose: 650 mg Review of Systems Constitutional: no fever, no chills, no sweats Cardiovascular: shortness of breath, leg edema Respiratory: no cough Gastrointestinal: no abdominal pain, no nausea, no vomiting, no diarrhea Genitourinary Male: no dysuria Exam - Vital Signs Vital signs: Vital Signs Temp Pulse Resp BP Pulse Ox 99 F 94 H 16 164/109 100 03/16/16 12:17 03/16/16 12:17 03/16/16 12:17 03/16/16 12:17 03/16/16 12:17 - General Appearance General appearance: well-developed, well-nourished EENT: ATNC Respiratory: Decreased Breath Sounds Heart: regular, S1S2 Gastrointestinal: Present: normal. Absent: tenderness, distended Integumentary: no rash Musculoskeletal: Present: other (+edema) Psychiatric: mood/affect appropriate Results - Lab Results 03/17/16 05:55 03/17/16 05:55 Most recent lab results Calcium 7.8 mg/dL (8.4-10.2) L 03/17/16 05:55 Assessment and Plan Impression * Stage III chronic kidney disease - b/l SCr 2.0-2.3mg/dL * Edema * Hypertension * HIV Plan: * Renal function is at baseline * Continue IV diuresis * Continue antiHTN medications * Strict I/O * Avoid nephrotoxins * Dose medications for renal function
[2016-03-18 08:44] LABS: BUN/Creatinine Ratio 14.28; Calcium 7.5 mg/dL (8.4-10.2); Chloride 109.5 mmol/L (98-107); Potassium 4.2 mmol/L (3.6-5.0)
[2016-03-18] MEDS: NORMODYNE PO SCH ×2 (09:12→22:53)
[2016-03-18] MEDS: THERAGRAN-M Tab PO SCH (09:12)
[2016-03-18] MEDS: SODIUM BICARBONATE PO SCH ×2 (09:12→22:53)
[2016-03-18] MEDS: SUSTIVA PO SCH (09:12)
[2016-03-18] MEDS: FEOSOL PO SCH (09:12)
[2016-03-18] MEDS: HABITROL TD SCH (09:12)
[2016-03-18] MEDS: LASIX IV SCH ×3 (09:12→22:53)
[2016-03-18] MEDS: NORVASC PO SCH (09:13)
[2016-03-18] MEDS: EPIVIR PO SCH (09:13)
[2016-03-18] MEDS: LOVENOX SUB-Q SCH (09:13)
[2016-03-18] MEDS: REMERON PO SCH (09:13)
[2016-03-18] MEDS: ZIAGEN PO SCH (09:13)
--- NOTE | 2016-03-18 09:46 | Progress Note ---
Assessment and Plan Impression * Stage III chronic kidney disease - b/l SCr 2.0-2.3mg/dL * Systolic heart failure * Edema * Hypertension * HIV Plan: * Renal function is at baseline; monitor SCr and lytes closely * Continue IV diuresis - will increase to BID * D/C calcium channel chhaya - may be contributing to edema * Add low dose ARB * Strict I/O * Avoid nephrotoxins * Dose medications for renal function Subjective Date of service: 03/18/16 Interval history: No acute events overnight. Objective - Vital Signs Vital signs: Vital Signs - 12hr 03/18/16 03/18/16 03/18/16 00:52 04:35 07:53 Temperature 98.8 F 98.1 F 98.4 F Pulse Rate [ 77 83 94 H Right Radial] Respiratory 20 20 20 Rate Blood Pressure 123/80 125/93 145/88 [Right Radial Artery] O2 Sat by Pulse 97 98 97 Oximetry - General Appearance General appearance: well-developed, well-nourished EENT: ATNC Respiratory: Present: Decreased Breath Sounds Cardiology: regular, S1S2 Gastrointestinal: normal, no tenderness, no distended Integumentary: no rash Musculoskeletal: other (1+ edema) Psychiatric: cooperative - Lab 03/17/16 05:55 03/18/16 07:59 Most recent lab results Calcium 7.5 mg/dL (8.4-10.2) L 03/18/16 07:59
[2016-03-18] MEDS ORDERED: COZAAR PO SCH (10:00)
--- NOTE | 2016-03-18 12:12 | Progress Note ---
Assessment and Plan Acute systolic heart failure clinically improving Echo 02/2016: EF 25-30%, moderate MR, moderate TR, RVSP 65-70mmHg continue lasix, labetalol, losartan Cardiomyopathy ?new diagnosis pt. will benefit from AICD-->this will be addressed as an OP Acute on chronic kidney disease per nephrology Hypertension stable continue labetalol, losartan Pulmonary hypertension History of CVA with right sided residual weakness and expressive aphasia HIV Continue current management and close monitoring of volume status and renal indices. The patient has been seen in conjunction with Dr. Michael who agrees with the assessment and plan of care. Subjective Date of service: 03/18/16 Principal diagnosis: systolic heart failure Interval history: The patient is resting in bed. Expressive aphasia. No acute distress noted. Objective Last Vital Signs Temp 98.4 F 03/18/16 07:53 Pulse 94 H 03/18/16 11:16 Resp 20 03/18/16 07:53 BP 145/88 03/18/16 07:53 Pulse Ox 97 03/18/16 07:53 - Physical Examination General: No Apparent Distress HEENT: Positive: Normocephaly, Mucus Membranes Moist Neck: Positive: neck supple, trachea midline Cardiac: Positive: Reg Rate and Rhythm, S1/S2 Lungs: Positive: clear to auscultation Neuro: Positive: Other (right hemiparesis, expressive aphasia) Abdomen: Positive: Soft, Active Bowel Sounds. Negative: Tender Skin: Negative: Rash Extremities: Present: +2 Edema (bilateral lower legs) - Labs and Meds Comprehensive Metabolic Panel 03/18/16 Range/Units 07:59 Sodium 142 (137-145) mmol/L Potassium 4.2 (3.6-5.0) mmol/L Chloride 109.5 H (98-107) mmol/L Carbon Dioxide 19 L (22-30) mmol/L BUN 30 H (9-20) mg/dL Creatinine 2.1 H (0.8-1.5) mg/dL Glucose 100 (75-100) mg/dL Calcium 7.5 L (8.4-10.2) mg/dL - Imaging and Cardiology Echo: report reviewed (02/2016: EF 25-30%, moderate MR, moderate TR, RVSP 65- 70mmHg) - Telemetry EKG Rhythm: Sinus Rhythm
[2016-03-18] MEDS ORDERED: DILANTIN 1,000 MG in NACL 0.9% 250ML 250 ML IV ONE (14:00)
[2016-03-18] MEDS ORDERED: DILANTIN IV SCH ×2 (14:00→22:00)
--- NOTE | 2016-03-18 15:37 | Progress Note ---
Assessment and Plan Assessment and plan: The history was obtained from the medical record as the patient has expressive aphasia. The patient is a 60 year old male with a history of CVA, chronic kidney disease, HIV who presented from his personal [place] [facility] with complaints of worsening lower extremity edema and shortness of breath over the past several weeks. No chest pain. BNP 52601. BUN 32 with a creatinine of 2.1. D- dimer 1467. According to ER documentation, the patient has previously required dialysis but has not been on dialysis since May 2014 * Seizure * Acute on chronic systolic congestive heart failure * Acute hypoxic respiratory failure improved * Acute kidney injury on chronic kidney disease likely secondary to vasomotor nephropathy-presented on admission * Bilateral lower extremity edema likely secondary to heart failure * Hypertension * History of CVA * Cardiomyopathy * Right-sided hemiplegia and expressive aphasia * HIV * [facility] resident * Tobacco abuse PLAN: * Patient with intermittent break through seizure, will load Dilantin due to low level and monitor closely * Continue IV Lasix increased per resident caregiver * Consider AICD per Cardiology possible outpatient eval * Continue labetalol, when necessary hydralazine, Norvasc discontinued * Cardiology input noted echocardiogram reviewed EF 25-30% * Physical therapy evaluate and treat * 15 minutes of counseling provided for the patient to quit tobacco use patient verbalized understanding. * Discussed in detail with sister-ESE * DVT and GI prophylaxis History Interval history: Follow-up shortness of breath Patient seen and examined this morning in no acute distress, but weak Denies any chest pain, nausea, vomiting, diarrhea No fever noted blood pressure controlled Nurse noted patient was having breakthrough seizures Hospitalist Physical - Physical exam Narrative exam: VITAL SIGNS: Reviewed. GENERAL: The patient appeared well nourished and normally developed. Vital signs as documented. HEAD: No signs of head trauma. EYES: Pupils are equal. Extraocular motions intact. EARS: Hearing grossly intact. MOUTH: Oropharynx is normal. NECK: No adenopathy, no JVD. CHEST: Chest with clear breath sounds bilaterally. No wheezes, rales, or rhonchi. CARDIAC: Regular rate and rhythm. S1 and S2, without murmurs, gallops, or rubs. VASCULAR: +2 pitting Edema. Peripheral pulses normal and equal in all extremities. ABDOMEN: Soft, without detectable tenderness. No sign of distention. No rebound or guarding, and no masses palpated. Bowel Sounds normal. MUSCULOSKELETAL: Wheelchair bound. Extremities without clubbing, cyanosis +2 pitting edema. right upper ext hemiplegia NEUROLOGIC EXAM: Alert and oriented x 3. positcal for a few minutes earlier today but resolved. Aphasic speech, answers in one syllables. Right hemiplegia. Follows commands. PSYCHIATRIC: Mood normal. SKIN: No rash or lesions. - Constitutional Vitals: Temp Pulse Resp BP Pulse Ox 98.4 F 94 H 20 145/88 97 03/18/16 07:53 03/18/16 11:16 03/18/16 07:53 03/18/16 07:53 03/18/16 07:53 General appearance: Present: no acute distress Results - Labs CBC & Chem 7: 03/17/16 05:55 03/18/16 07:59 Labs: Laboratory Last Values WBC 6.1 K/mm3 (4.5-11.0) 03/17/16 05:55 RBC 3.12 M/mm3 (3.65-5.03) L 03/17/16 05:55 Hgb 11.6 gm/dl (11.8-15.2) L 03/17/16 05:55 Hct 35.2 % (35.5-45.6) L 03/17/16 05:55 MCV 113 fl (84-94) H D 03/17/16 05:55 MCH 37 pg (28-32) H 03/17/16 05:55 MCHC 33 % (32-34) 03/17/16 05:55 RDW 14.6 % (13.2-15.2) 03/17/16 05:55 Plt Count 169 K/mm3 (140-440) 03/17/16 05:55 Lymph % (Auto) 31.0 % (13.4-35.0) 03/17/16 05:55 [place] % (Auto) 10.5 % (0.0-7.3) H 03/17/16 05:55 Eos % (Auto) 4.2 % (0.0-4.3) 03/17/16 05:55 Baso % (Auto) 0.8 % (0.0-1.8) 03/17/16 05:55 Lymph # 1.9 K/mm3 (1.2-5.4) 03/17/16 05:55 [place] # 0.6 K/mm3 (0.0-0.8) 03/17/16 05:55 Eos # 0.3 K/mm3 (0.0-0.4) 03/17/16 05:55 Baso # 0.0 K/mm3 (0.0-0.1) 03/17/16 05:55 Seg Neutrophils % 53.5 % (40.0-70.0) 03/17/16 05:55 Seg Neutrophils # 3.3 K/mm3 (1.8-7.7) 03/17/16 05:55 PT 16.6 Sec. (12.2-14.9) H 03/16/16 12:49 INR 1.35 (0.87-1.13) H 03/16/16 12:49 APTT 29.6 Sec. (24.2-36.6) 03/16/16 12:49 D-Dimer 1467.09 ng/mlDDU (0-234) H 03/17/16 05:55 Sodium 142 mmol/L (137-145) 03/18/16 07:59 Potassium 4.2 mmol/L (3.6-5.0) 03/18/16 07:59 Chloride 109.5 mmol/L (98-107) H 03/18/16 07:59 Carbon Dioxide 19 mmol/L (22-30) L 03/18/16 07:59 Anion Gap 18 mmol/L 03/18/16 07:59 BUN 30 mg/dL (9-20) H 03/18/16 07:59 Creatinine 2.1 mg/dL (0.8-1.5) H 03/18/16 07:59 Estimated GFR 39 ml/min 03/18/16 07:59 BUN/Creatinine Ratio 14.28 % 03/18/16 07:59 Glucose 100 mg/dL (75-100) 03/18/16 07:59 Calcium 7.5 mg/dL (8.4-10.2) L 03/18/16 07:59 Total Bilirubin 0.3 mg/dL (0.1-1.2) 03/16/16 12:49 AST 22 units/L (5-40) 03/16/16 12:49 ALT 17 units/L (7-56) 03/16/16 12:49 Alkaline Phosphatase 154 units/L (35-129) H 03/16/16 12:49 NT-Pro-B Natriuret Pep 87987 pg/mL (0-900) H 03/16/16 12:49 Total Protein 6.7 g/dL (6.3-8.2) 03/16/16 12:49 Albumin 3.0 g/dL (3.9-5) L 03/16/16 12:49 Albumin/Globulin Ratio 0.8 % 03/16/16 12:49 Urine Color Yellow (Yellow) 03/16/16 Unknown Urine Turbidity Clear (Clear) 03/16/16 Unknown Urine pH 6.0 (5.0-7.0) 03/16/16 Unknown Ur Specific [place] 1.016 (1.003-1.030) 03/16/16 Unknown Urine Protein 100 mg/dl mg/dL (Negative) 03/16/16 Unknown Urine Glucose (UA) Neg mg/dL (Negative) 03/16/16 Unknown Urine Ketones Neg mg/dL (Negative) 03/16/16 Unknown Urine Blood Neg (Negative) 03/16/16 Unknown Urine Nitrite Neg (Negative) 03/16/16 Unknown Urine Bilirubin Neg (Negative) 03/16/16 Unknown Urine Urobilinogen < 2.0 mg/dL (<2.0) 03/16/16 Unknown Ur Leukocyte Esterase Neg (Negative) 03/16/16 Unknown Urine WBC (Auto) 1.0 /HPF (0.0-6.0) 03/16/16 Unknown Urine RBC (Auto) 7.0 /HPF (0.0-6.0) 03/16/16 Unknown U Epithel Cells (Auto) < 1.0 /HPF (0-13.0) 03/16/16 Unknown Urine Mucus Few /HPF 03/16/16 Unknown Phenytoin 2.5 mg/L (10.0-20.0) L 03/16/16 12:49 Phenytoin was low
[2016-03-18] MEDS ORDERED: ULTRAM PO PRN (15:39)
[2016-03-18] MEDS ORDERED: NACL 0.9% 500 ML 500 ML ONE (15:58)
[2016-03-18] MEDS ORDERED: NACL 0.9% 500 ML 500 ML IV ONE (16:02)
--- NOTE | 2016-03-18 16:47 | XRay Report ---
AP chest x-ray. Findings: Since the previous study, there is interval development of vascular congestion with indistinct pulmonary vessels/edema and a right pleural effusion. The heart is borderline in size. Impression: Interval development of mild CHF.
[2016-03-18] MEDS: LEVAQUIN 500MG/100ML 100 ML IV SCH (16:51)
[2016-03-18 17:39] LABS: ISTAT Base Excess -24; ISTAT PCO2 14.1 (35-45); ISTAT PH 7.161 (7.35-7.45); ISTAT PO2 48 (80-105); ISTAT SO2 74; ISTAT TCO2 5
[2016-03-18 17:39] LABS: ISTAT Base Excess -26; ISTAT HCO3 3.7; ISTAT PCO2 12.2 (35-45); ISTAT PH 7.095 (7.35-7.45); ISTAT PO2 42 (80-105); ISTAT SO2 62; ISTAT TCO2 < 5
[2016-03-18] MEDS ORDERED: NACL 0.9% IV SCH (22:00)
[2016-03-18] MEDS: KEPPRA PO SCH (22:53)
[2016-03-19 06:22] LABS: ISTAT Base Excess -8; ISTAT HCO3 19.1; ISTAT PCO2 41.5 (35-45); ISTAT PH 7.272 (7.35-7.45); ISTAT PO2 59 (80-105); ISTAT SO2 86; ISTAT TCO2 20
[2016-03-19] MEDS: LOVENOX SUB-Q SCH (09:20)
[2016-03-19] MEDS: HABITROL TD SCH (09:20)
[2016-03-19] MEDS: THERAGRAN-M Tab PO SCH (09:20)
[2016-03-19] MEDS: FEOSOL PO SCH (09:20)
[2016-03-19] MEDS: KEPPRA PO SCH ×2 (09:20→21:43)
[2016-03-19] MEDS: SODIUM BICARBONATE PO SCH ×2 (09:20→21:43)
[2016-03-19] MEDS: SUSTIVA PO SCH (09:21)
[2016-03-19] MEDS: REMERON PO SCH (09:21)
[2016-03-19] MEDS: ZIAGEN PO SCH (09:21)
[2016-03-19] MEDS: EPIVIR PO SCH (09:22)
--- NOTE | 2016-03-19 10:41 | Progress Note ---
Assessment and Plan Acute systolic heart failure clinically improving Echo 02/2016: EF 25-30%, moderate MR, moderate TR, RVSP 65-70mmHg continue lasix, labetalol losartan on hold due to hypotensive episode on 03/18 Cardiomyopathy ?new diagnosis pt. will benefit from AICD-->this will be addressed as an OP Acute on chronic kidney disease per nephrology Hypertension hypotensive episode noted 03/18-->BP now stable continue labetalol resume losartan if BP remains stable Pulmonary hypertension History of CVA with right sided residual weakness and expressive aphasia HIV Continue current management. Resume losartan if BP remains stable. The patient has been seen in conjunction with Dr. Michael who agrees with the assessment and plan of care. Subjective Date of service: 03/19/16 Principal diagnosis: systolic heart failure Interval history: The patient is resting in bed. Expressive aphasia. No acute distress noted. Sinus rhythm on the monitor. Episode of hypotension following dilantin administration yesterday afternoon. Objective Last Vital Signs Temp 97.5 F L 03/19/16 08:16 Pulse 72 03/19/16 08:16 Resp 20 03/19/16 08:16 BP 121/88 03/19/16 08:16 Pulse Ox 96 03/19/16 08:16 - Physical Examination General: No Apparent Distress HEENT: Positive: Normocephaly, Mucus Membranes Moist Neck: Positive: neck supple, trachea midline Cardiac: Positive: Reg Rate and Rhythm, S1/S2 Lungs: Positive: Decreased Breath Sounds Neuro: Positive: Other (right hemiparesis, expressive aphasia) Abdomen: Positive: Soft, Active Bowel Sounds. Negative: Tender Skin: Negative: Rash Extremities: Present: +1 Edema (bilateral lower legs) - Imaging and Cardiology Echo: report reviewed (02/2016: EF 25-30%, moderate MR, moderate TR, RVSP 65- 70mmHg) - Telemetry EKG Rhythm: Sinus Rhythm
--- NOTE | 2016-03-19 11:26 | Progress Note ---
Assessment and Plan Impression * Stage III chronic kidney disease - b/l SCr 2.0-2.3mg/dL * Systolic heart failure * Edema * Hypertension * HIV Plan: * Renal function is at baseline; monitor SCr and lytes closely * Continue IV diuresis - * His calcium channel chhaya has been discontinued due to edema. Blood pressure is adequately controlled * Continue low dose ARB * Strict I/O * Avoid nephrotoxins * Dose medications for renal function Subjective Date of service: 03/19/16 Principal diagnosis: systolic heart failure Interval history: Patient appears comfortable. He is however nonverbal. Objective - Vital Signs Vital signs: Vital Signs - 12hr 03/19/16 03/19/16 03/19/16 01:35 07:29 08:16 Temperature 97.5 F L 97.6 F 97.5 F L Pulse Rate [ 70 71 72 Right Radial] Respiratory 20 20 20 Rate Blood Pressure 98/68 112/80 121/88 [Right Radial Artery] O2 Sat by Pulse 99 97 96 Oximetry - General Appearance General appearance: well-developed, well-nourished, appears stated age EENT: PERRL, mucous membranes moist Neck: no JVD, no thyromegaly, no carotid bruit, supple Respiratory: Present: Clear to Ascultation Cardiology: regular, normal heart rate, S1S2, no murmurs Gastrointestinal: normal, normoactive bowel sounds Integumentary: no rash, other (1+ pedal edema bilaterally) Neurologic: other (patient has right-sided hemiparesis) - Lab 03/17/16 05:55 03/18/16 07:59 Most recent lab results Calcium 7.5 mg/dL (8.4-10.2) L 03/18/16 07:59
[2016-03-19] MEDS: LASIX IV SCH ×2 (11:49→21:43)
[2016-03-19] MEDS: NORMODYNE PO SCH ×2 (11:49→21:43)
--- NOTE | 2016-03-19 13:25 | Progress Note ---
Assessment and Plan Assessment and plan: The history was obtained from the medical record as the patient has expressive aphasia. The patient is a 60 year old male with a history of CVA, chronic kidney disease, HIV who presented from his personal intermediate with complaints of worsening lower extremity edema and shortness of breath over the past several weeks. No chest pain. BNP 42408. BUN 32 with a creatinine of 2.1. D- dimer 1467. According to ER documentation, the patient has previously required dialysis but has not been on dialysis since May 2014 * Seizure * Acute on chronic systolic congestive heart failure * Acute hypoxic respiratory failure improved * Acute kidney injury on chronic kidney disease likely secondary to vasomotor nephropathy-presented on admission * Bilateral lower extremity edema likely secondary to heart failure * Hypertension * History of CVA * Cardiomyopathy * Right-sided hemiplegia and expressive aphasia * HIV * [facility] resident * Tobacco abuse PLAN: * Continue seizure precautions. Patient did have a reaction to Dilantin with significant drop in blood pressure this has resolved. * Start low dose ARB * Continue seizure precautions * Anticipate discharge in a.m. will need evaluation for AICD outpatient. * Continue IV Lasix increased per sales route driver helper * Consider AICD per Cardiology possible outpatient eval * Continue labetalol, when necessary hydralazine, Norvasc discontinued * Cardiology input noted echocardiogram reviewed EF 25-30% * Physical therapy evaluate and treat * Chest x-ray reviewed in detail mild CHF consistent with current TREATMENT protocol. Continue to diurese. * 15 minutes of counseling provided for the patient to quit tobacco use patient verbalized understanding. * Discussed in detail with sister-POA * DVT and GI prophylaxis History Interval history: Follow-up shortness of breath This morning patient appears to be getting close to his baseline. No further seizure event noted. Although still a little bit lethargic. Complaint of abdominal pain on exam. No other adverse events reported by nursing staff Hospitalist Physical - Physical exam Narrative exam: VITAL SIGNS: Reviewed. GENERAL: The patient appeared lethargic. Vital signs as documented. HEAD: No signs of head trauma. EYES: Pupils are equal. Extraocular motions intact. EARS: Hearing grossly intact. MOUTH: Oropharynx is normal. NECK: No adenopathy, no JVD. CHEST: Chest with clear breath sounds bilaterally. No wheezes, rales, or rhonchi. CARDIAC: Regular rate and rhythm. S1 and S2, without murmurs, gallops, or rubs. VASCULAR: +1 pitting Edema. Peripheral pulses normal and equal in all extremities. ABDOMEN: Soft, without detectable tenderness. No sign of distention. No rebound or guarding, and no masses palpated. Bowel Sounds normal. MUSCULOSKELETAL: Wheelchair bound. Extremities without clubbing, cyanosis +1 pitting edema. right upper ext hemiplegia NEUROLOGIC EXAM: Alert and oriented x 3. lethargic. Right hemiplegia. Follows commands. PSYCHIATRIC: Mood normal. SKIN: No rash or lesions. - Constitutional Vitals: Temp Pulse Resp BP Pulse Ox 97.0 F L 78 18 128/91 100 03/19/16 12:44 03/19/16 12:44 03/19/16 12:44 03/19/16 12:44 03/19/16 12:44 General appearance: Present: no acute distress Results - Labs CBC & Chem 7: 03/17/16 05:55 03/18/16 07:59 Labs: Laboratory Last Values WBC 6.1 K/mm3 (4.5-11.0) 03/17/16 05:55 RBC 3.12 M/mm3 (3.65-5.03) L 03/17/16 05:55 Hgb 11.6 gm/dl (11.8-15.2) L 03/17/16 05:55 Hct 35.2 % (35.5-45.6) L 03/17/16 05:55 MCV 113 fl (84-94) H D 03/17/16 05:55 MCH 37 pg (28-32) H 03/17/16 05:55 MCHC 33 % (32-34) 03/17/16 05:55 RDW 14.6 % (13.2-15.2) 03/17/16 05:55 Plt Count 169 K/mm3 (140-440) 03/17/16 05:55 Lymph % (Auto) 31.0 % (13.4-35.0) 03/17/16 05:55 [place] % (Auto) 10.5 % (0.0-7.3) H 03/17/16 05:55 Eos % (Auto) 4.2 % (0.0-4.3) 03/17/16 05:55 Baso % (Auto) 0.8 % (0.0-1.8) 03/17/16 05:55 Lymph # 1.9 K/mm3 (1.2-5.4) 03/17/16 05:55 [place] # 0.6 K/mm3 (0.0-0.8) 03/17/16 05:55 Eos # 0.3 K/mm3 (0.0-0.4) 03/17/16 05:55 Baso # 0.0 K/mm3 (0.0-0.1) 03/17/16 05:55 Seg Neutrophils % 53.5 % (40.0-70.0) 03/17/16 05:55 Seg Neutrophils # 3.3 K/mm3 (1.8-7.7) 03/17/16 05:55 PT 16.6 Sec. (12.2-14.9) H 03/16/16 12:49 INR 1.35 (0.87-1.13) H 03/16/16 12:49 APTT 29.6 Sec. (24.2-36.6) 03/16/16 12:49 D-Dimer 1467.09 ng/mlDDU (0-234) H 03/17/16 05:55 POC ABG pH 7.272 (7.35-7.45) L 03/18/16 16:55 POC ABG pCO2 41.5 (35-45) 03/18/16 16:55 POC ABG pO2 59 (80-105) L 03/18/16 16:55 POC ABG HCO3 19.1 03/18/16 16:55 POC ABG Total CO2 20 03/18/16 16:55 POC ABG O2 Sat 86 03/18/16 16:55 POC ABG Base Excess -8 03/18/16 16:55 FiO2 2 % 03/18/16 16:55 Sodium 142 mmol/L (137-145) 03/18/16 07:59 Potassium 4.2 mmol/L (3.6-5.0) 03/18/16 07:59 Chloride 109.5 mmol/L (98-107) H 03/18/16 07:59 Carbon Dioxide 19 mmol/L (22-30) L 03/18/16 07:59 Anion Gap 18 mmol/L 03/18/16 07:59 BUN 30 mg/dL (9-20) H 03/18/16 07:59 Creatinine 2.1 mg/dL (0.8-1.5) H 03/18/16 07:59 Estimated GFR 39 ml/min 03/18/16 07:59 BUN/Creatinine Ratio 14.28 % 03/18/16 07:59 Glucose 100 mg/dL (75-100) 03/18/16 07:59 Calcium 7.5 mg/dL (8.4-10.2) L 03/18/16 07:59 Total Bilirubin 0.3 mg/dL (0.1-1.2) 03/16/16 12:49 AST 22 units/L (5-40) 03/16/16 12:49 ALT 17 units/L (7-56) 03/16/16 12:49 Alkaline Phosphatase 154 units/L (35-129) H 03/16/16 12:49 NT-Pro-B Natriuret Pep 25932 pg/mL (0-900) H 03/16/16 12:49 Total Protein 6.7 g/dL (6.3-8.2) 03/16/16 12:49 Albumin 3.0 g/dL (3.9-5) L 03/16/16 12:49 Albumin/Globulin Ratio 0.8 % 03/16/16 12:49 Urine Color Yellow (Yellow) 03/16/16 Unknown Urine Turbidity Clear (Clear) 03/16/16 Unknown Urine pH 6.0 (5.0-7.0) 03/16/16 Unknown Ur Specific [place] 1.016 (1.003-1.030) 03/16/16 Unknown Urine Protein 100 mg/dl mg/dL (Negative) 03/16/16 Unknown Urine Glucose (UA) Neg mg/dL (Negative) 03/16/16 Unknown Urine Ketones Neg mg/dL (Negative) 03/16/16 Unknown Urine Blood Neg (Negative) 03/16/16 Unknown Urine Nitrite Neg (Negative) 03/16/16 Unknown Urine Bilirubin Neg (Negative) 03/16/16 Unknown Urine Urobilinogen < 2.0 mg/dL (<2.0) 03/16/16 Unknown Ur Leukocyte Esterase Neg (Negative) 03/16/16 Unknown Urine WBC (Auto) 1.0 /HPF (0.0-6.0) 03/16/16 Unknown Urine RBC (Auto) 7.0 /HPF (0.0-6.0) 03/16/16 Unknown U Epithel Cells (Auto) < 1.0 /HPF (0-13.0) 03/16/16 Unknown Urine Mucus Few /HPF 03/16/16 Unknown Phenytoin 2.5 mg/L (10.0-20.0) L 03/16/16 12:49 - Imaging and Cardiology Chest x-ray: image reviewed
--- NOTE | 2016-03-19 13:29 | Vascular Lab Report ---
LOWER EXTREMITY VENOUS DUPLEX: REASON FOR EXAM: Edema. COMMENTS ON THE RIGHT: All veins visualized are freely compressible without evidence of internal echogenicity. Flow is spontaneous and phasic throughout. COMMENTS ON THE LEFT: All veins visualized are freely compressible without evidence of internal echogenicity. Flow is spontaneous and phasic throughout. IMPRESSION: No evidence of acute or chronic deep venous thrombosis in either lower extremity.
--- NOTE | 2016-03-19 16:04 | Cat Scan Report ---
CT scan of abdomen and pelvis without IV contrast: History: Left lower quadrant abdominal pain. Findings: Moderate right pleural effusion with compressive atelectasis adjacent lung parenchyma. Discoid atelectasis left lower lobe. No pericardial effusion. Borderline enlarged liver. Normal spleen. No intrahepatic duct dilatation. No mass. Markedly distended gallbladder. No calculi in the gallbladder. Pancreas faintly visualized and grossly normal. Grossly normal adrenals and kidney parenchyma. Bladder appears normal. Minimal ascitic fluid. Gaseous colon with large volume stool in colon. Bowel gas pattern is not optimally visualized. There are scattered diverticula noted in the sigmoid. Impression: Markedly distended gallbladder. Minimal ascitic fluid. Diverticulosis sigmoid colon.
--- NOTE | 2016-03-20 09:27 | Discharge Summary ---
Providers - Providers Date of Admission: 03/16/16 22:11 Date of discharge: 03/20/16 Attending physician: SANTHOSH RAMIREZ MD 03/17/16 08:53 Consult to Physician [CONS] Routine Consulting Provider: SHELIA LAWSON Reason For Exam: chf Place consult to:: [facility] Notified:: patt Was contact made?: Yes If yes, spoke with:: Patt Time called:: 09:11 03/17/16 13:40 Physical Therapy Evaluation and Treat [CONS] Routine Comment: Reason For Exam: DEBILITY, HX OF CVA, RIGHT HEMIPLEGIA Primary care physician: SEUN SHELBY Hospitalization Reason for admission: shortness of breath Condition: Stable Hospital course: The history was obtained from the medical record as the patient has expressive aphasia. The patient is a 60 year old male with a history of CVA, chronic kidney disease, HIV who presented from his personal custodial with complaints of worsening lower extremity edema and shortness of breath over the past several weeks. No chest pain. BNP 45202. BUN 32 with a creatinine of 2.1. D- dimer 1467. According to ER documentation, the patient has previously required dialysis but has not been on dialysis since May 2014. During hospitalization the patient did have a seizure episode for which she was given a loading dose of phenytoin assessment level was low. To this medication with significantly decreased and blood pressure do not consider this allergic effect but a pronounced side effect to the medication. Phenytoin was discontinued and the patient was started on Keppra is symmetrical and mental status improved significantly. He did diurese appropriately dose by cardiology with a noted echocardiogram showing a depressed ejection fraction. 25-30%. Patient was started on losartan. Amlodipine was discontinued edema. He was also seen by nephrology recommendations continue following up blood since. Outpatient cardiology work up and follow-up with cardiology to further evaluate reason for cardiomyopathy if ischemic or not. We did also discuss with the patient and need to quit tobacco use patient verbalized understanding. His sister was here with him during his hospitalization she was updated medical conditions. Discharge diagnosis * Seizure * Acute on chronic systolic congestive heart failure * Acute hypoxic respiratory failure improved * Acute kidney injury on chronic kidney disease likely secondary to vasomotor nephropathy-presented on admission * Bilateral lower extremity edema likely secondary to heart failure * Hypertension * History of CVA * Cardiomyopathy * Right-sided hemiplegia and expressive aphasia * HIV * assisted resident * Tobacco abuse Disposition: DC/TX SNF [facility] Time spent for discharge: 35 mins Core Measure Documentation - Palliative Care Palliative Care/ Comfort Measures: Not Applicable - Core Measures Any of the following diagnoses?: none - VTE Discharge Requirements Deep Vein Thrombosis/Pulmonary Embolism Present on Admission: No Exam - Physical Exam Narrative exam: VITAL SIGNS: Reviewed. GENERAL: The patient appeared awake, in no acute distress. Vital signs as documented. HEAD: No signs of head trauma. EYES: Pupils are equal. Extraocular motions intact. EARS: Hearing grossly intact. MOUTH: Oropharynx is normal. NECK: No adenopathy, no JVD. CHEST: Chest with clear breath sounds bilaterally. No wheezes, rales, or rhonchi. CARDIAC: Regular rate and rhythm. S1 and S2, without murmurs, gallops, or rubs. VASCULAR: +1 pitting Edema. Peripheral pulses normal and equal in all extremities. ABDOMEN: Soft, without detectable tenderness. No sign of distention. No rebound or guarding, and no masses palpated. Bowel Sounds normal. MUSCULOSKELETAL: Wheelchair bound. Extremities without clubbing, cyanosis +1 pitting edema. right upper ext hemiplegia NEUROLOGIC EXAM: Alert and oriented x 3. Right hemiplegia. Follows commands. PSYCHIATRIC: Mood normal. SKIN: No rash or lesions. - Constitutional Vitals: Temp Pulse Resp BP Pulse Ox 97.4 F L 74 20 146/96 97 03/20/16 05:55 03/20/16 09:13 03/20/16 05:55 03/20/16 05:55 03/20/16 05:55 Plan Activity: fall precautions Diet: low cholesterol, low salt Special Instructions: record daily weights, record daily BP diary Follow up with: SEUN SHELBY MD [Primary Care Provider] - 3-5 Days MICHAEL KUNZ MD [Staff Physician] - 7 Days URIEL JENKINS MD [Staff Physician] - 7 Days Prescriptions: Losartan [Cozaar] 12.5 mg PO QDAY #30 tablet levETIRAcetam [Keppra TAB] 500 mg PO BID #60 tablet Labetalol [Normodyne TAB] 200 mg PO BID #60 tablet traMADol [Ultram 50 MG tab] 50 mg PO Q6H PRN #20 tablet PRN Reason: Pain, Moderate (4-6)
[2016-03-20] MEDS ORDERED: ATIVAN IV ONE (10:26)
[2016-03-20] MEDS: EPIVIR PO SCH (10:41)
[2016-03-20] MEDS: REMERON PO SCH (10:41)
[2016-03-20] MEDS: KEPPRA PO SCH ×2 (10:41→21:24)
[2016-03-20] MEDS: THERAGRAN-M Tab PO SCH (10:41)
[2016-03-20] MEDS: SODIUM BICARBONATE PO SCH ×2 (10:41→21:24)
[2016-03-20] MEDS: FEOSOL PO SCH (10:42)
[2016-03-20] MEDS: NORMODYNE PO SCH ×2 (10:42→21:25)
[2016-03-20] MEDS: ZIAGEN PO SCH (10:42)
[2016-03-20] MEDS: SUSTIVA PO SCH (10:43)
[2016-03-20] MEDS: LOVENOX SUB-Q SCH (10:43)
[2016-03-20] MEDS: LASIX IV SCH (10:44)
[2016-03-20] MEDS: HABITROL TD SCH (10:45)
[2016-03-20] MEDS: COZAAR PO SCH (10:52)
--- NOTE | 2016-03-20 11:40 | Progress Note ---
Assessment and Plan Impression * Stage III chronic kidney disease - b/l SCr 2.0-2.3mg/dL * Systolic heart failure * Edema * Hypertension * HIV Plan: * Renal function is at baseline; monitor SCr and lytes closely * Given his watery diarrhea, shall hold his diuretics for now - * His calcium channel chhaya has been discontinued due to edema. Blood pressure is adequately controlled * Continue low dose ARB * Strict I/O * Avoid nephrotoxins * Dose medications for renal function Subjective Date of service: 03/20/16 Principal diagnosis: systolic heart failure Interval history: Patient seems to be having some watery diarrhea. He remains aphasic at this time. Objective - Vital Signs Vital signs: Vital Signs - 12hr 03/20/16 03/20/16 03/20/16 01:08 05:55 08:33 Temperature 97.3 F L 97.4 F L 97.7 F Pulse Rate Pulse Rate [ 74 73 From Monitor] Pulse Rate [ 75 Right Radial] Respiratory 20 20 18 Rate Blood Pressure Blood Pressure 113/83 146/96 133/85 [Right Radial Artery] O2 Sat by Pulse 93 97 100 Oximetry 03/20/16 03/20/16 03/20/16 09:13 10:42 10:52 Temperature Pulse Rate 74 75 75 Pulse Rate [ From Monitor] Pulse Rate [ Right Radial] Respiratory Rate Blood Pressure 133/85 133/85 Blood Pressure [Right Radial Artery] O2 Sat by Pulse Oximetry - General Appearance General appearance: well-developed, well-nourished, appears stated age EENT: PERRL, mucous membranes moist Neck: no JVD, no thyromegaly, no carotid bruit, supple Respiratory: Present: Clear to Ascultation Cardiology: regular Gastrointestinal: normal, normoactive bowel sounds Integumentary: no rash, other (1+ edema) Neurologic: other (right-sided hemiparesis) - Lab 03/17/16 05:55 03/18/16 07:59 Most recent lab results Calcium 7.5 mg/dL (8.4-10.2) L 03/18/16 07:59
--- NOTE | 2016-03-20 11:51 | Progress Note ---
Assessment and Plan Acute systolic heart failure clinically improving Echo 02/2016: EF 25-30%, moderate MR, moderate TR, RVSP 65-70mmHg continue lasix, labetalol Cardiomyopathy ?new diagnosis pt. will benefit from AICD-->this will be addressed as an OP Acute on chronic kidney disease per nephrology Hypertension hypotensive episode noted 03/18-->BP now stable continue labetalol resume losartan if BP remains stable Pulmonary hypertension History of CVA with right sided residual weakness and expressive aphasia HIV Subjective Date of service: 03/20/16 Principal diagnosis: systolic heart failure Interval history: pt is sleeping Objective Vital Signs Temp Pulse Pulse Pulse Resp BP BP 03/20/16 10:52 75 133/85 03/20/16 10:42 75 133/85 03/20/16 09:13 74 03/20/16 08:33 97.7 F 75 18 133/85 03/20/16 05:55 97.4 F L 73 20 146/96 03/20/16 01:08 97.3 F L 74 20 113/83 03/19/16 22:00 72 03/19/16 21:49 97.8 F 76 20 136/95 03/19/16 18:01 97.5 F L 79 18 137/93 03/19/16 12:44 97.0 F L 78 18 128/91 03/19/16 12:13 Pulse Ox 03/20/16 10:52 03/20/16 10:42 03/20/16 09:13 03/20/16 08:33 100 03/20/16 05:55 97 03/20/16 01:08 93 03/19/16 22:00 03/19/16 21:49 95 03/19/16 18:01 95 03/19/16 12:44 100 03/19/16 12:13 96 - Physical Examination General: No Apparent Distress HEENT: Positive: Normocephaly, Mucus Membranes Moist Neck: Positive: neck supple, trachea midline Cardiac: Positive: Reg Rate and Rhythm Lungs: Positive: clear to auscultation Neuro: Positive: Other (right hemiparesis, expressive aphasia) Abdomen: Positive: Soft, Active Bowel Sounds. Negative: Tender Skin: Negative: Rash Extremities: Absent: edema - Imaging and Cardiology Echo: report reviewed (02/2016: EF 25-30%, moderate MR, moderate TR, RVSP 65- 70mmHg) - Telemetry EKG Rhythm: Sinus Rhythm
--- NOTE | 2016-03-20 13:02 | Progress Note ---
Assessment and Plan Assessment and plan: The history was obtained from the medical record as the patient has expressive aphasia. The patient is a 60 year old male with a history of CVA, chronic kidney disease, HIV who presented from his personal [facility] with complaints of worsening lower extremity edema and shortness of breath over the past several weeks. No chest pain. BNP [address]20. BUN 32 with a creatinine of 2.1. D- dimer 1467. According to ER documentation, the patient has previously required dialysis but has not been on dialysis since May 2014 * Rectal Prolapse * Seizure * Acute on chronic systolic congestive heart failure * Acute hypoxic respiratory failure improved * Acute kidney injury on chronic kidney disease likely secondary to vasomotor nephropathy-presented on admission * Bilateral lower extremity edema likely secondary to heart failure * Hypertension * History of CVA * Cardiomyopathy * Right-sided hemiplegia and expressive aphasia * HIV * senior living resident * Tobacco abuse PLAN: * Hold discharge * Consult surgery due to Rectal prolapse * Continue seizure precautions. Patient did have a reaction to Dilantin with significant drop in blood pressure this has resolved. * Start low dose ARB * Continue seizure precautions * Anticipate discharge in a.m. will need evaluation for AICD outpatient. * Continue IV Lasix increased per roll handler * Consider AICD per Cardiology possible outpatient eval * Continue labetalol, when necessary hydralazine, Norvasc discontinued * Cardiology input noted echocardiogram reviewed EF 25-30% * Physical therapy evaluate and treat * Chest x-ray reviewed in detail mild CHF consistent with current TREATMENT protocol. Continue to diurese. * 15 minutes of counseling provided for the patient to quit tobacco use patient verbalized understanding. * Discussed in detail with sister-POA * DVT and GI prophylaxis History Interval history: Follow-up shortness of breath This morning patient appears to be getting close to his baseline. No further seizure event noted. Plan for discharge this morning but did have a rectal prolapse No other adverse events reported by nursing staff Hospitalist Physical - Physical exam Narrative exam: VITAL SIGNS: Reviewed. GENERAL: The patient appeared awake, in no acute distress. Vital signs as documented. HEAD: No signs of head trauma. EYES: Pupils are equal. Extraocular motions intact. EARS: Hearing grossly intact. MOUTH: Oropharynx is normal. NECK: No adenopathy, no JVD. CHEST: Chest with clear breath sounds bilaterally. No wheezes, rales, or rhonchi. CARDIAC: Regular rate and rhythm. S1 and S2, without murmurs, gallops, or rubs. VASCULAR: +1 pitting Edema. Peripheral pulses normal and equal in all extremities. ABDOMEN: Soft, without detectable tenderness. No sign of distention. No rebound or guarding, and no masses palpated. Bowel Sounds normal. Rectal prolapse MUSCULOSKELETAL: Wheelchair bound. Extremities without clubbing, cyanosis +1 pitting edema. right upper ext hemiplegia NEUROLOGIC EXAM: Alert and oriented x 3. Right hemiplegia. Follows commands. PSYCHIATRIC: Mood normal. SKIN: No rash or lesions. - Constitutional Vitals: Temp Pulse Resp BP Pulse Ox 97.7 F 75 18 133/85 100 03/20/16 08:33 03/20/16 10:52 03/20/16 08:33 03/20/16 10:52 03/20/16 08:33 General appearance: Present: no acute distress Results - Labs CBC & Chem 7: 03/17/16 05:55 03/18/16 07:59 Labs: Laboratory Last Values WBC 6.1 K/mm3 (4.5-11.0) 03/17/16 05:55 RBC 3.12 M/mm3 (3.65-5.03) L 03/17/16 05:55 Hgb 11.6 gm/dl (11.8-15.2) L 03/17/16 05:55 Hct 35.2 % (35.5-45.6) L 03/17/16 05:55 MCV 113 fl (84-94) H D 03/17/16 05:55 MCH 37 pg (28-32) H 03/17/16 05:55 MCHC 33 % (32-34) 03/17/16 05:55 RDW 14.6 % (13.2-15.2) 03/17/16 05:55 Plt Count 169 K/mm3 (140-440) 03/17/16 05:55 Lymph % (Auto) 31.0 % (13.4-35.0) 03/17/16 05:55 Curry % (Auto) 10.5 % (0.0-7.3) H 03/17/16 05:55 Eos % (Auto) 4.2 % (0.0-4.3) 03/17/16 05:55 Baso % (Auto) 0.8 % (0.0-1.8) 03/17/16 05:55 Lymph # 1.9 K/mm3 (1.2-5.4) 03/17/16 05:55 Curry # 0.6 K/mm3 (0.0-0.8) 03/17/16 05:55 Eos # 0.3 K/mm3 (0.0-0.4) 03/17/16 05:55 Baso # 0.0 K/mm3 (0.0-0.1) 03/17/16 05:55 Seg Neutrophils % 53.5 % (40.0-70.0) 03/17/16 05:55 Seg Neutrophils # 3.3 K/mm3 (1.8-7.7) 03/17/16 05:55 PT 16.6 Sec. (12.2-14.9) H 03/16/16 12:49 INR 1.35 (0.87-1.13) H 03/16/16 12:49 APTT 29.6 Sec. (24.2-36.6) 03/16/16 12:49 D-Dimer 1467.09 ng/mlDDU (0-234) H 03/17/16 05:55 POC ABG pH 7.272 (7.35-7.45) L 03/18/16 16:55 POC ABG pCO2 41.5 (35-45) 03/18/16 16:55 POC ABG pO2 59 (80-105) L 03/18/16 16:55 POC ABG HCO3 19.1 03/18/16 16:55 POC ABG Total CO2 20 03/18/16 16:55 POC ABG O2 Sat 86 03/18/16 16:55 POC ABG Base Excess -8 03/18/16 16:55 FiO2 2 % 03/18/16 16:55 Sodium 142 mmol/L (137-145) 03/18/16 07:59 Potassium 4.2 mmol/L (3.6-5.0) 03/18/16 07:59 Chloride 109.5 mmol/L (98-107) H 03/18/16 07:59 Carbon Dioxide 19 mmol/L (22-30) L 03/18/16 07:59 Anion Gap 18 mmol/L 03/18/16 07:59 BUN 30 mg/dL (9-20) H 03/18/16 07:59 Creatinine 2.1 mg/dL (0.8-1.5) H 03/18/16 07:59 Estimated GFR 39 ml/min 03/18/16 07:59 BUN/Creatinine Ratio 14.28 % 03/18/16 07:59 Glucose 100 mg/dL (75-100) 03/18/16 07:59 Calcium 7.5 mg/dL (8.4-10.2) L 03/18/16 07:59 Total Bilirubin 0.3 mg/dL (0.1-1.2) 03/16/16 12:49 AST 22 units/L (5-40) 03/16/16 12:49 ALT 17 units/L (7-56) 03/16/16 12:49 Alkaline Phosphatase 154 units/L (35-129) H 03/16/16 12:49 NT-Pro-B Natriuret Pep 99082 pg/mL (0-900) H 03/16/16 12:49 Total Protein 6.7 g/dL (6.3-8.2) 03/16/16 12:49 Albumin 3.0 g/dL (3.9-5) L 03/16/16 12:49 Albumin/Globulin Ratio 0.8 % 03/16/16 12:49 Urine Color Yellow (Yellow) 03/16/16 Unknown Urine Turbidity Clear (Clear) 03/16/16 Unknown Urine pH 6.0 (5.0-7.0) 03/16/16 Unknown Ur Specific Lavina 1.016 (1.003-1.030) 03/16/16 Unknown Urine Protein 100 mg/dl mg/dL (Negative) 03/16/16 Unknown Urine Glucose (UA) Neg mg/dL (Negative) 03/16/16 Unknown Urine Ketones Neg mg/dL (Negative) 03/16/16 Unknown Urine Blood Neg (Negative) 03/16/16 Unknown Urine Nitrite Neg (Negative) 03/16/16 Unknown Urine Bilirubin Neg (Negative) 03/16/16 Unknown Urine Urobilinogen < 2.0 mg/dL (<2.0) 03/16/16 Unknown Ur Leukocyte Esterase Neg (Negative) 03/16/16 Unknown Urine WBC (Auto) 1.0 /HPF (0.0-6.0) 03/16/16 Unknown Urine RBC (Auto) 7.0 /HPF (0.0-6.0) 03/16/16 Unknown U Epithel Cells (Auto) < 1.0 /HPF (0-13.0) 03/16/16 Unknown Urine Mucus Few /HPF 03/16/16 Unknown Phenytoin 2.5 mg/L (10.0-20.0) L 03/16/16 12:49
[2016-03-20] MEDS ORDERED: IMODIUM PO PRN (15:15)
[2016-03-20] MEDS: LEVAQUIN 500MG/100ML 100 ML IV SCH (18:30)
[2016-03-21] MEDS: COZAAR PO SCH (10:38)
[2016-03-21] MEDS: SODIUM BICARBONATE PO SCH (10:38)
[2016-03-21] MEDS: NORMODYNE PO SCH (10:39)
[2016-03-21] MEDS: THERAGRAN-M Tab PO SCH (10:39)
[2016-03-21] MEDS: EPIVIR PO SCH (10:39)
[2016-03-21] MEDS: REMERON PO SCH (10:39)
[2016-03-21] MEDS: KEPPRA PO SCH (10:39)
[2016-03-21] MEDS: LOVENOX SUB-Q SCH (10:40)
[2016-03-21] MEDS: FEOSOL PO SCH (10:40)
[2016-03-21] MEDS: SUSTIVA PO SCH (10:40)
[2016-03-21] MEDS: HABITROL TD SCH (10:40)
[2016-03-21] MEDS: ZIAGEN PO SCH (10:40)
--- NOTE | 2016-03-21 11:11 | Progress Note ---
Assessment and Plan Acute systolic heart failure clinically improving Echo 02/2016: EF 25-30%, moderate MR, moderate TR, RVSP 65-70mmHg continue lasix, labetalol Cardiomyopathy ?new diagnosis pt. will benefit from AICD-->this will be addressed as an OP Acute on chronic kidney disease per nephrology Hypertension hypotensive episode noted 03/18-->BP now stable continue labetalol resume losartan if BP remains stable Pulmonary hypertension History of CVA with right sided residual weakness and expressive aphasia HIV Patient has a of rectal prolapse the as per surgery Patient is compensated systolic heart failure stable cardiovascular review for discharge Subjective Date of service: 03/21/16 Principal diagnosis: systolic heart failure Interval history: Patient is awake and alert. Slurred speech right-sided weakness no chest pain or shortness of breath Objective Vital Signs Temp Pulse Pulse Resp BP BP Pulse Ox 03/21/16 08:34 98.5 F 80 18 135/95 95 03/21/16 07:14 80 20 157/92 98 03/21/16 04:10 97.8 F 80 20 157/92 98 03/21/16 01:41 97.4 F L 82 18 151/93 94 03/20/16 21:25 82 143/105 03/20/16 20:13 97.4 F L 79 18 143/105 95 03/20/16 17:53 97.3 F L 74 18 133/93 100 - Physical Examination General: No Apparent Distress HEENT: Positive: Normocephaly, Mucus Membranes Moist Neck: Positive: neck supple, trachea midline Cardiac: Positive: Reg Rate and Rhythm Lungs: Positive: clear to auscultation Neuro: Positive: Other (right hemiparesis, expressive aphasia) Abdomen: Positive: Soft, Active Bowel Sounds. Negative: Tender Skin: Negative: Rash Extremities: Absent: edema - Imaging and Cardiology Echo: report reviewed (02/2016: EF 25-30%, moderate MR, moderate TR, RVSP 65- 70mmHg) - Telemetry EKG Rhythm: Sinus Rhythm
--- NOTE | 2016-03-21 11:42 | Progress Note ---
Assessment and Plan Impression * Stage III chronic kidney disease - b/l SCr 2.0-2.3mg/dL * Systolic heart failure * Edema * Hypertension * HIV Plan: * Renal function is at baseline; need to recheck his chemistries * His diarrhea has resolved. He does have 1+ pitting edema. Shall resume his diuretics * His calcium channel chhaya has been discontinued due to edema. Blood pressure is adequately controlled * Continue low dose ARB * Strict I/O * Avoid nephrotoxins * Dose medications for renal function Subjective Date of service: 03/21/16 Principal diagnosis: systolic heart failure Interval history: Patient is awake and alert. His diarrhea has resolved. Appears comfortable Objective - Vital Signs Vital signs: Vital Signs - 12hr 03/21/16 03/21/16 03/21/16 01:41 04:10 07:14 Temperature 97.4 F L 97.8 F Pulse Rate [ 82 80 80 Right Radial] Respiratory 18 20 20 Rate Blood Pressure 151/93 157/92 157/92 [Right Radial Artery] O2 Sat by Pulse 94 98 98 Oximetry 03/21/16 08:34 Temperature 98.5 F Pulse Rate [ 80 Right Radial] Respiratory 18 Rate Blood Pressure 135/95 [Right Radial Artery] O2 Sat by Pulse 95 Oximetry - General Appearance General appearance: well-developed, well-nourished, appears stated age EENT: PERRL, mucous membranes moist Neck: no JVD, no thyromegaly, no carotid bruit, supple Respiratory: Present: Clear to Ascultation Cardiology: regular, normal heart rate, S1S2, no murmurs Gastrointestinal: normal, normoactive bowel sounds Integumentary: no rash, other (1+ edema) - Lab 03/17/16 05:55 03/18/16 07:59 Most recent lab results Calcium 7.5 mg/dL (8.4-10.2) L 03/18/16 07:59
[2016-03-21] MEDS ORDERED: LASIX IV SCH (12:00)
--- NOTE | 2016-03-21 12:07 | Discharge Summary ---
Providers - Providers Date of Admission: 03/16/16 22:11 Date of discharge: 03/21/16 Attending physician: SANHTOSH RAMIREZ MD 03/17/16 08:53 Consult to Physician [CONS] Routine Consulting Provider: SHELIA LAWSON Reason For Exam: chf Place consult to:: [facility] Notified:: patt Was contact made?: Yes If yes, spoke with:: Patt Time called:: 09:11 03/17/16 13:40 Physical Therapy Evaluation and Treat [CONS] Routine Comment: Reason For Exam: DEBILITY, HX OF CVA, RIGHT HEMIPLEGIA 03/20/16 13:24 Consult to Physician [CONS] Routine Consulting Provider: LAURA VILLALTA Reason For Exam: rectal prolapse Place consult to:: chao Notified:: service Phone number called:: [phone] Was contact made?: Yes Time called:: 14:50 Primary care physician: SEUN SHELBY Hospitalization Reason for admission: shortness of breath Condition: Stable Hospital course: The history was obtained from the medical record as the patient has expressive aphasia. The patient is a 60 year old male with a history of CVA, chronic kidney disease, HIV who presented from his personal senior living with complaints of worsening lower extremity edema and shortness of breath over the past several weeks. No chest pain. BNP 80411. BUN 32 with a creatinine of 2.1. D- dimer 1467. According to ER documentation, the patient has previously required dialysis but has not been on dialysis since May 2014. During hospitalization the patient did have a seizure episode for which she was given a loading dose of phenytoin assessment level was low. To this medication with significantly decreased and blood pressure do not consider this allergic effect but a pronounced side effect to the medication. Phenytoin was discontinued and the patient was started on Keppra is symmetrical and mental status improved significantly. He did diurese appropriately dose by cardiology with a noted echocardiogram showing a depressed ejection fraction. 25-30%. Patient was started on losartan. Amlodipine was discontinued edema. He was also seen by nephrology recommendations continue following up blood since. Outpatient cardiology work up and follow-up with cardiology to further evaluate reason for cardiomyopathy if ischemic or not. We did also discuss with the patient and need to quit tobacco use patient verbalized understanding. His sister was here with him during his hospitalization she was updated medical conditions. She did develop a rectal prolapse which was adequately reduced. I recommended she follow-up with surgery. Patient also has a planned colonoscopy with GI recommended to the cystoscopy. Discharge diagnosis * Seizure * Rectal prolapse * Acute on chronic systolic congestive heart failure * Acute hypoxic respiratory failure improved * Acute kidney injury on chronic kidney disease likely secondary to vasomotor nephropathy-presented on admission * Bilateral lower extremity edema likely secondary to heart failure * Hypertension * History of CVA * Cardiomyopathy * Right-sided hemiplegia and expressive aphasia * HIV * long-term resident * Tobacco abuse Disposition: DC/TX SNF [facility] Time spent for discharge: 35 mins Core Measure Documentation - Palliative Care Palliative Care/ Comfort Measures: Not Applicable - Core Measures Any of the following diagnoses?: none - VTE Discharge Requirements Deep Vein Thrombosis/Pulmonary Embolism Present on Admission: No Exam - Physical Exam Narrative exam: VITAL SIGNS: Reviewed. GENERAL: The patient appeared awake, in no acute distress. Vital signs as documented. HEAD: No signs of head trauma. EYES: Pupils are equal. Extraocular motions intact. EARS: Hearing grossly intact. MOUTH: Oropharynx is normal. NECK: No adenopathy, no JVD. CHEST: Chest with clear breath sounds bilaterally. No wheezes, rales, or rhonchi. CARDIAC: Regular rate and rhythm. S1 and S2, without murmurs, gallops, or rubs. VASCULAR: +1 pitting Edema. Peripheral pulses normal and equal in all extremities. ABDOMEN: Soft, without detectable tenderness. No sign of distention. No rebound or guarding, and no masses palpated. Bowel Sounds normal. Prolapse resolved. MUSCULOSKELETAL: Wheelchair bound. Extremities without clubbing, cyanosis +1 pitting edema. right upper ext hemiplegia NEUROLOGIC EXAM: Alert and oriented x 3. Right hemiplegia. Follows commands. PSYCHIATRIC: Mood normal. SKIN: No rash or lesions. - Constitutional Vitals: Temp Pulse Resp BP Pulse Ox 98.5 F 80 18 135/95 95 03/21/16 08:34 03/21/16 08:34 03/21/16 08:34 03/21/16 08:34 03/21/16 08:34 Plan Follow up with: SEUN SHELBY MD [Primary Care Provider] - 3-5 Days URIEL JENKINS MD [Staff Physician] - 7 Days MICHAEL KUNZ MD [Staff Physician] - 7 Days Prescriptions: Losartan [Cozaar] 12.5 mg PO QDAY #30 tablet levETIRAcetam [Keppra TAB] 500 mg PO BID #60 tablet Furosemide [Lasix] 20 mg PO BID #60 tablet Labetalol [Normodyne TAB] 200 mg PO BID #60 tablet traMADol [Ultram 50 MG tab] 50 mg PO Q6H PRN #20 tablet PRN Reason: Pain, Moderate (4-6)
[2016-03-21 12:23] VITALS: BP 122/80
--- NOTE | 2016-03-25 09:11 | Query- General ---
Shelli Thomas____Eddie Date:____03/25/16 Activated Sludge Attendant/CDS: Maximino / Ritchie Phone#:____[phone] Exercise your independent professional judgment when responding to this query. Questions asked do not imply a particular answer is desired or expected. We greatly appreciate your clarification on this issue. Clinical Documentation States: 60 year old male was admitted on 03/16/16. The Discharge summary states " Discharge diagnosis: HIV " Given the above clinical scenario can you please provide an appropriate diagnosis based on your knowledge of the patient: Please clarify the HIV status of the patient: PHYSICIAN RESPONSE: [ X ] HIV disease [ ] AIDS [ ] HIV asymptomatic [ ] Other (please specify) [ ] Clinically undeterminable [ ] Not applicable Present on Admission: [Y ] Yes (Y) [ ] Clinically undeterminable (W) [ ]No(N) Please also document response in your Progress Notes and/or Discharge Summary and indicate if the condition was present on admission. MTDD
== END 2016-03-21 13:59 | DRG 291 ==
LOC: ED 11:36 → 4A 22:11
PROVIDERS: ADMIT Hospitalist; ATTEND Internal Medicine
PROC: 4A033R1 Measurement of Arterial Saturation, Peripheral, Percutaneous Approach (ICD-10-PCS; principal; 2016-03-18)
DX: I13.0 Hypertensive heart and chronic kidney disease with heart failure and stage 1 through stage 4 chronic kidney disease, or unspecified chronic kidney disease (principal); N17.0 Acute kidney failure with tubular necrosis; I50.23 Acute on chronic systolic (congestive) heart failure; J96.01 Acute respiratory failure with hypoxia; B20 Human immunodeficiency virus [HIV] disease; I69.351 Hemiplegia and hemiparesis following cerebral infarction affecting right dominant side; I42.9 Cardiomyopathy, unspecified; N18.3 Chronic kidney disease, stage 3 (moderate); F17.200 Nicotine dependence, unspecified, uncomplicated; I08.1 Rheumatic disorders of both mitral and tricuspid valves; I27.2 Other secondary pulmonary hypertension; R56.9 Unspecified convulsions; T42.0X5A Adverse effect of hydantoin derivatives, initial encounter; R19.7 Diarrhea, unspecified; I95.9 Hypotension, unspecified; K62.3 Rectal prolapse; Z71.6 Tobacco abuse counseling; Z98.890 Other specified postprocedural states; Z79.899 Other long term (current) drug therapy; I69.320 Aphasia following cerebral infarction
CPT/HCPCS: 36415; 36600; 71010; 71020; 74000; 74176; 74270; 80048; 80053; 80185; 81001; 82140; 82550; 82803; 83690; 83880; 84132; 85025; 85027; 85379; 85610; 85730; 86850; 86900; 86901; 88307; 93005; 93010; 93306; 93970; 94640; 94760; 96361; 96374; 96375; 99285; 99406; A9270-GY; G8978-GP; G8979-GP; J0360; J1165; J1170; J1650; J1815; J1940; J1956; J2060; J2270; J2370; J2405; J2704; J2710; J3010; J7030; J7040; J7042; J7050

== ENCOUNTER 2016-03-21 17:41 | Inpatient (IN) | payer MEDICARE ==
--- NOTE | 2016-03-21 19:24 | Emergency Department Report ---
HPI - General Chief Complaint: Medical Clearance Time Seen by Provider: 03/21/16 18:55 - HPI HPI: This is a 60-year-old Afro-[place]ren[place] male who presents to the emergency department by EMS from [facility] after being discharged from [facility] just hours previous. The patient was here for edema, CHF, renal insufficiency. While he was here, the patient developed a rectal prolapse. There is some reports and/or notes saying that the patient had appropriate reduction of this rectal prolapse and was set up to see a compliance professional for colonoscopy and outpatient referral to a surgeon for evaluation and possible treatment of the rectal prolapse. However once the patient got 2 [place], they noticed the rectal prolapse and sent the patient back as they said they do not have the means for dealing with that or treating it and they do not accept the patient. The patient himself denies any pain to the rectum, abdomen, fever, nausea or vomiting. Allegedly there is no previous history of this. ED Past Medical Hx - Past Medical History Hx Hypertension: Yes Hx CVA: Yes Hx Renal Disease: Yes (not on dialysis) Hx HIV: Yes - Surgical History Additional Surgical History: dialysis shunt to left upper arm - Social History Smoking Status: Current Some Day Smoker - Medications Home Medications: Home Medications Medication Instructions Recorded Confirmed Last Taken Type Abacavir Sulfate/Lamivudine 1 each PO DAILY 03/16/16 03/16/16 03/16/16 History [Epzicom TAB] AtorvaSTATin [Lipitor] 40 mg PO DAILY 03/16/16 03/16/16 03/16/16 History Efavirenz [Sustiva] 600 mg PO DAILY 03/16/16 03/16/16 03/16/16 History Ferrous Sulfate [Feosol 325 MG tab] 325 mg PO QDAY 03/16/16 03/16/16 03/16/16 History Mirtazapine 30 mg PO DAILY 03/16/16 03/16/16 03/16/16 History Multivitamin with Iron [Tab-A-Grayson 1 each PO DAILY 03/16/16 03/16/16 03/16/16 History with Iron] Quetiapine Fumarate [QUEtiapine 400 mg PO QDAY 03/16/16 03/16/16 03/16/16 History Fumarate] Sodium Bicarbonate 650 mg PO BID 01/24/17 01/24/17 01/24/17 History traMADol [Ultram 50 MG tab] 50 mg PO BID 03/16/16 03/16/16 03/16/16 History Labetalol [Normodyne TAB] 200 mg PO BID #60 tablet 03/20/16 Unknown Rx Losartan [Cozaar] 12.5 mg PO QDAY #30 tablet 03/20/16 Unknown Rx levETIRAcetam [Keppra TAB] 500 mg PO BID #60 tablet 03/20/16 Unknown Rx traMADol [Ultram 50 MG tab] 50 mg PO Q6H PRN #20 tablet 03/20/16 Unknown Rx Furosemide [Lasix] 20 mg PO BID #60 tablet 03/21/16 Unknown Rx ED Review of Systems ROS: Stated complaint: PROLAPSED RECTRUM Other details as noted in HPI Comment: All other systems reviewed and negative Constitutional: denies: chills, fever Eyes: denies: eye pain, eye discharge, vision change ENT: denies: ear pain, throat pain Respiratory: denies: cough, shortness of breath, wheezing Cardiovascular: denies: chest pain, palpitations Gastrointestinal: other (rectal prolapse). denies: abdominal pain, nausea, diarrhea Genitourinary: denies: urgency, dysuria Musculoskeletal: denies: back pain, joint swelling, arthralgia Skin: denies: rash, lesions Neurological: denies: headache, weakness, paresthesias Physical Exam - Physical Exam Physical Exam: GENERAL: The patient is well-developed well-nourished. HEENT: Normocephalic. Atraumatic. Extraocular motions are intact. Patient has moist mucous membranes. Pupils equal reactive to light bilaterally. NECK: Supple. Trachea is midline. CHEST/LUNGS: Clear to auscultation. There is no respiratory distress noted. HEART/CARDIOVASCULAR: Regular. There is no tachycardia. There is no gallop rub or murmur. ABDOMEN: Abdomen is soft, nontender. Patient has normal bowel sounds. There is no abdominal distention. RECTAL: Mild rectal prolapse that is reducible. No lesions seen. SKIN: Skin is warm and dry. NEURO: The patient is awake, alert, and oriented. The patient is cooperative. Chronic right hemiparesis. Chronic stuttering speech and aphasia. MUSCULOSKELETAL: There is no tenderness or deformity. There is no evidence of acute injury. ED Course - Consultations Consultation #1: I spoke with the general surgeon, Dr. Wallace, who does not feel that a reduced rectal prolapse requires inpatient admission on its own accord but is willing to see the patient in the hospital if he is admitted. She does say that they had a consult to see him today but he was discharged prior to their consultation. 03/21/16 23:10 ED Medical Decision Making - Lab Data Result diagrams: 03/21/16 22:04 03/21/16 22:03 - Medical Decision Making This is a 60-year-old male who presents to the emergency department about 1-2 hours after being discharged from [facility]. The patient had developed a rectal prolapse prior to discharge but allegedly it was reduced. However by the time the patient got to [place] he had a large rectal prolapse and there is evidence of this and pictures taken by his sister/guardian. There was still a small amount of prolapse seen in the emergency department but it was greatly improved and able to be reduced very easily. Some basic labs were obtained and it still shows the patient's renal insufficiency but not significant higher since patient's admission and discharge. The issue is more of a discharge planning problem. The patient appears to have a rectal prolapse with every type of bowel movement or intra-abdominal pressure. And [facility] has made it clear that they are unable to deal with this kind of issue and are not willing to manually reduce it when it occurs. The patient was previously in a personal intermediate and the sister does not want him returned to there. The sister does not want him sent to [place] and she is unable to care for him at home secondary to his hemiplegia. For this reason the patient will be admitted to the hospital for further evaluation and discharge planning. The general surgery team of [facility] is willing to see the patient regarding his rectal prolapse and do a consultation on the floor. Spoke to the hospitalist, Dr. Dsouza, who is graciously agreed to admit this patient. - Differential Diagnosis rectal prolapse, hemorrhoids, malignancy, discharge planning issues Critical Care Time: No Critical care attestation.: If time is entered above; I have spent that time in minutes in the direct care of this critically ill patient, excluding procedure time. ED Disposition Clinical Impression: Rectal prolapse, Discharge planning issues CKD (chronic kidney disease) Qualifiers: Chronic kidney disease stage: unspecified stage Qualified Code(s): N18.9 - Chronic kidney disease, unspecified Hypertension Qualifiers: Hypertension type: essential hypertension Qualified Code(s): I10 - Essential ( primary) hypertension Disposition: OP ADMITTED IP TO THIS HOSP Is pt being admited?: Yes Condition: Stable Instructions: Hypertension (ED) Time of Disposition: 23:21
[2016-03-21 22:13] LABS: Basophils % (Auto) 0.5 % (0.0-1.8); Eosinophils % (Auto) 4.4 % (0.0-4.3); Hematocrit 44.3 % (35.5-45.6); Hemoglobin 14.2 gm/dl (11.8-15.2); Mean Corpuscular HGB Conc 32 % (32-34); Mean Corpuscular Hemoglobin 37 pg (28-32); Mean Corpuscular Volume 114 fl (84-94); Platelet Count 164 K/mm3 (140-440); Red Blood Count 3.89 M/mm3 (3.65-5.03); Red Cell Distribution Width 14.8 % (13.2-15.2); White Blood Count 7.2 K/mm3 (4.5-11.0)
[2016-03-21 22:36] LABS: Albumin 2.6 g/dL (3.9-5); Albumin/Globulin Ratio 0.7 %; BUN/Creatinine Ratio 12.72; Bilirubin,Total 0.4 mg/dL (0.1-1.2); Calcium 8.2 mg/dL (8.4-10.2); Chloride 109.4 mmol/L (98-107); Potassium 4.4 mmol/L (3.6-5.0); Total Protein 6.6 g/dL (6.3-8.2)
--- NOTE | 2016-03-21 23:59 | History and Physical Report ---
History of Present Illness Date of examination: 03/21/16 History of present illness: This is a 60-year-old man with a history of hypertension, chronic kidney disease , CHF, CVA with right hemiplegia, a phasia, hypertension, rectal prolapse was discharged from the hospital today to the [facility]. The patient was sent back from [facility] because of recurrence of his rectal prolapse and they're unable to care for him Patient denies chest pain, palpitation, shortness of breath, cough, abdominal pain, hematochezia, dysuria, frequency, focal weakness, dysarthria, fever chills , polydipsia polyuria, hot or cold intolerance, easy bruisability, or rash or bleeding from mucosal membrane, rhinorrhea, epistaxis, earache, tinnitus, blurry vision, eye discharge, anxiety, depression. Other review of systems negative PAST SURGICAL HISTORY: AV fistula SOCIAL HISTORY: Smokes, denies alcohol, drugs FAMILY HISTORY: Hypertension Medications and Allergies Allergies Allergy/AdvReac Type Severity Reaction Status Date / Time codeine Allergy Unknown Verified 03/25/16 13:36 Sulfa (Sulfonamide Allergy Unknown Verified 03/25/16 13:36 Antibiotics) Home Medications Medication Instructions Recorded Confirmed Last Taken Type Abacavir Sulfate/Lamivudine 1 each PO DAILY 03/16/16 03/21/16 03/16/16 History [Epzicom TAB] AtorvaSTATin [Lipitor] 40 mg PO DAILY 03/16/16 03/21/16 03/16/16 History Efavirenz [Sustiva] 600 mg PO DAILY 03/16/16 03/21/16 03/16/16 History Ferrous Sulfate [Feosol 325 MG tab] 325 mg PO QDAY 03/16/16 03/21/16 03/16/16 History Mirtazapine 30 mg PO DAILY 03/16/16 03/21/16 03/16/16 History Multivitamin with Iron [Tab-A-Garyson 1 each PO DAILY 03/16/16 03/21/16 03/16/16 History with Iron] Quetiapine Fumarate [QUEtiapine 400 mg PO QDAY 03/16/16 03/21/16 03/16/16 History Fumarate] Sodium Bicarbonate 650 mg PO BID 03/16/16 03/21/16 03/16/16 History traMADol [Ultram 50 MG tab] 50 mg PO BID 03/16/16 03/21/16 03/16/16 History Losartan [Cozaar] 12.5 mg PO QDAY #30 tablet 03/20/16 03/21/16 Unknown Rx Ferrous Sulfate [Feosol] 325 mg PO QDAY 03/21/16 03/21/16 Unknown History Furosemide [Lasix] 20 mg PO BID #60 tablet 03/21/16 03/21/16 Unknown Rx Labetalol [Normodyne TAB] 300 mg PO BID 03/21/16 03/21/16 Unknown History Nicotine [Habitrol] 21 mg TD DAILY 03/21/16 03/21/16 Unknown History Phenytoin [Dilantin] 100 mg PO Q8HR 03/21/16 03/21/16 Unknown History amLODIPine [Norvasc] 5 mg PO DAILY 03/21/16 03/21/16 Unknown History lamiVUDine [Epivir] 300 mg PO QDAY 03/21/16 03/21/16 Unknown History Exam - Physical Exam Narrative exam: Gen. appearance: Patient lying in bed, no apparent distress HEENT: Normocephalic, atraumatic, pupils equally round and reactive to light, extraocular movement intact, and no sclericterus,. No JVD or thyromegaly or nodule,neck supple, no carotid bruit ,mucous membranes moist, no exudate or erythema Heart: S1, S2, regular rate and rhythm Lungs: Clear to auscultation bilaterally, breathing comfortable Abdomen: Positive bowel sounds, nontender, nondistended, no organomegaly Extremity: No edema, cyanosis, clubbing Skin: No rash, nodules, warm, dry Neuro: Oriented 3, cranial nerves II-12 intact, aphasia, right hemiplegia - Constitutional Vitals: Temp Pulse Resp BP Pulse Ox 98.4 F 85 16 169/94 100 03/21/16 20:02 03/21/16 20:02 03/21/16 20:02 03/21/16 20:02 03/21/16 20:02 Results - Labs CBC & Chem 7: 03/29/16 04:24 03/29/16 04:24 Labs: Abnormal lab results 03/21/16 03/21/16 03/21/16 Range/Units 21:46 22:03 22:04 MCV 114 H (84-94) fl MCH 37 H (28-32) pg [place] % (Auto) 8.4 H (0.0-7.3) % Eos % (Auto) 4.4 H (0.0-4.3) % Chloride 109.4 H (98-107) mmol/L Carbon Dioxide 20 L (22-30) mmol/L BUN 28 H (9-20) mg/dL Creatinine 2.2 H (0.8-1.5) mg/dL Calcium 8.2 L (8.4-10.2) mg/dL Alkaline Phosphatase 144 H (35-129) units/L Total Creatine Kinase 192 H (55-170) units/L Albumin 2.6 L (3.9-5) g/dL Assessment and Plan Recurrence of rectal prolapse CHF, systolic, stable Chronic kidney disease Hypertension History of CVA Seizure Admit to medicine Consult surgery, continue appropriate outpatient medications Start DVT prophylaxis
[2016-03-22] MEDS ORDERED: PROVENTIL IH PRN (01:00)
[2016-03-22] MEDS ORDERED: TYLENOL PO PRN (01:00)
[2016-03-22] MEDS ORDERED: MILK OF MAGNESIA PO PRN (01:00)
[2016-03-22] MEDS ORDERED: DULCOLAX PR PRN (01:00)
[2016-03-22] MEDS ORDERED: APRESOLINE IV PRN (01:13)
[2016-03-22] MEDS ORDERED: DILANTIN PO SCH (06:00)
[2016-03-22] MEDS ORDERED: COZAAR PO SCH (10:00)
[2016-03-22] MEDS ORDERED: LOVENOX SUB-Q SCH (10:00)
[2016-03-22] MEDS ORDERED: ABACAVIR SULFATE PO SCH (10:00)
[2016-03-22] MEDS ORDERED: LAMIVUDINE PO SCH (10:00)
[2016-03-22] MEDS: COZAAR PO SCH (10:54)
[2016-03-22] MEDS: KEPPRA PO SCH ×2 (10:54→23:41)
[2016-03-22] MEDS: LASIX PO SCH ×2 (10:55→23:38)
[2016-03-22] MEDS: THERAGRAN Tab PO SCH (10:55)
[2016-03-22] MEDS: NORVASC PO SCH (10:56)
[2016-03-22] MEDS: NORMODYNE PO SCH ×2 (10:56→23:39)
[2016-03-22] MEDS: SODIUM BICARBONATE PO SCH ×2 (10:57→23:42)
[2016-03-22] MEDS: HABITROL TD SCH (10:57)
--- NOTE | 2016-03-22 11:20 | Admit Criteria Form ---
Admission Criteria Documentation: RENAL FAILURE, CHRONIC Clinical Indications for Admission to Inpatient Care (Place 'X' for any and all applicable criteria): Admission is indicated for ANY ONE of the following (1)(2)(3)(4)(5): [X]I. Inpatient admission required rather than observation care (Use Renal Failure, Chronic: Observation Care Criteria as appropriate) because of ANY ONE of the following: [ ]a) Volume overload or uremic symptoms (eg, clinically significant pulmonary edema, hypertension, pericarditis, acidosis) too severe for, or not responsive (eg, for over 24 hours) to emergency department or observation care dialysis or treatment regimen (11) [ ]b) Hemodynamic instability that is severe or persistent [ ]c) Respiratory distress that is severe or persistent (11) [ ]d) Clinically significant electrolyte abnormality that requires inpatient care (eg,hyperkalemia with severe ECG findings)[B] [ ]e) Supplement O2 or respiratory therapy for over 24hrs that is performable only in acute inpatient setting [ ]f) Continuous IV infusion of anticoagulation, platelet inhibitor, vasoactive, or Antiarrhythmic medication (15), [ ]g) Pulmonary artery catheter monitoring [ ]h) Temporary pacemaker placement [ ]i) Emergent pericardiocentesis [X]j) Other condition, treatment or monitoring requiring inpatient admission [ ]II. Unexplained syncope [A] [ ]III. Recurrent seizures [ ]IV. Severe infections not treatable in outpatient setting (eg, peritonitis)(9 ) [ ]V. Cardiac arrhythmias of immediate concern [ ]. Encephalopathy [ ]VII.Bleeding abnormalities (eg, platelet dysfunction) with active (eg, gastrointestinal) bleeding Extended stay beyond goal length of stay may be needed for (3)(4)(35)(36): [ ]a) Continuing uremic complications [ ]b) Comorbidities or complications The original [email or web address] content created by [email or web address] has been revised. The portions of the content which have been revised are identified through the use of italic text or in bold, and [facility] [employer] has neither reviewed nor approved the modified material. All other unmodified content is copyright [email or web address]. Please see references footnoted in the original [facility] edition 2016 Admission Criteria Met: Yes
[2016-03-22] MEDS: FEOSOL PO SCH (13:34)
[2016-03-22] MEDS: ZIAGEN PO SCH (13:35)
[2016-03-22] MEDS: EPIVIR PO SCH (15:24)
--- NOTE | 2016-03-22 16:13 | Progress Note ---
Assessment and Plan Assessment and plan: This is a 60-year-old man with a history of hypertension, chronic kidney disease , CHF, CVA with right hemiplegia, a phasia, hypertension, rectal prolapse was discharged from the hospital today to the [facility]. The patient was sent back from [facility] because of recurrence of his rectal prolapse and they're unable to care for him. During previous hospitalization the patient received phenytoin IV episode of hypotension. This was discontinued and he was changed to Keppra. Patient denies chest pain, palpitation, shortness of breath, cough, abdominal pain, hematochezia, dysuria, frequency, focal weakness, dysarthria, fever chills , polydipsia polyuria, hot or cold intolerance, easy bruisability, or rash or bleeding from mucosal membrane, rhinorrhea, epistaxis, earache, tinnitus, blurry vision, eye discharge, anxiety, depression. Other review of systems negative * Recurrence of rectal prolapse * CHF, systolic, stable * HIV * Chronic kidney disease creatinine is at baseline * Hypertension * History of CVA * Seizure Plan * I discussed with surgery Dr. Mota, patient will be seen by him either today or first in the morning and plan for surgery for repair of rectal prolapse. * Continue ART medications * Seizure and fall precautions * We'll increase losartan as blood pressure was mildly elevated this morning * Continue Keppra * DVT and GI prophylaxis * Case discussed with the patient in detail. History Interval history: Patient is examined this morning admitted due to rectal prolapse. Denies any diarrhea, denies any nausea, denies any vomiting. No further seizure activity noted. No other adverse events noted by nursing staff Hospitalist Physical - Physical exam Narrative exam: VITAL SIGNS: Reviewed. GENERAL: The patient appeared well nourished and normally developed. Vital signs as documented. HEAD: No signs of head trauma. EYES: Pupils are equal. Extraocular motions intact. EARS: Hearing grossly intact. MOUTH: Oropharynx is normal. NECK: No adenopathy, no JVD. CHEST: Chest with clear breath sounds bilaterally. No wheezes, rales, or rhonchi. CARDIAC: Regular rate and rhythm. S1 and S2, without murmurs, gallops, or rubs. VASCULAR: No Edema. Peripheral pulses normal and equal in all extremities. ABDOMEN: Soft, without detectable tenderness. No sign of distention. No rebound or guarding, and no masses palpated. Bowel Sounds normal. MUSCULOSKELETAL: Good range of motion of all major joints. Extremities without clubbing, cyanosis or edema. NEUROLOGIC EXAM: Alert and oriented x 3. Sided hemiparesis. Physics speech. Follows commands. PSYCHIATRIC: Mood normal. SKIN: No rash or lesions. - Constitutional Vitals: Temp Pulse Resp BP Pulse Ox 98.5 F 91 H 20 121/78 98 03/22/16 08:11 03/22/16 13:48 03/22/16 08:11 03/22/16 13:48 03/22/16 08:11 Results - Labs CBC & Chem 7: 03/21/16 22:04 03/21/16 22:03 Labs: Laboratory Last Values WBC 7.2 K/mm3 (4.5-11.0) 03/21/16 22:04 RBC 3.89 M/mm3 (3.65-5.03) 03/21/16 22:04 Hgb 14.2 gm/dl (11.8-15.2) 03/21/16 22:04 Hct 44.3 % (35.5-45.6) 03/21/16 22:04 MCV 114 fl (84-94) H 03/21/16 22:04 MCH 37 pg (28-32) H 03/21/16 22:04 MCHC 32 % (32-34) 03/21/16 22:04 RDW 14.8 % (13.2-15.2) 03/21/16 22:04 Plt Count 164 K/mm3 (140-440) 03/21/16 22:04 Lymph % (Auto) 31.1 % (13.4-35.0) 03/21/16 22:04 [place] % (Auto) 8.4 % (0.0-7.3) H 03/21/16 22:04 Eos % (Auto) 4.4 % (0.0-4.3) H 03/21/16 22:04 Baso % (Auto) 0.5 % (0.0-1.8) 03/21/16 22:04 Lymph # 2.2 K/mm3 (1.2-5.4) 03/21/16 22:04 Mayes # 0.6 K/mm3 (0.0-0.8) 03/21/16 22:04 Eos # 0.3 K/mm3 (0.0-0.4) 03/21/16 22:04 Baso # 0.0 K/mm3 (0.0-0.1) 03/21/16 22:04 Seg Neutrophils % 55.6 % (40.0-70.0) 03/21/16 22:04 Seg Neutrophils # 4.0 K/mm3 (1.8-7.7) 03/21/16 22:04 Sodium 142 mmol/L (137-145) 03/21/16 22:03 Potassium 4.4 mmol/L (3.6-5.0) 03/21/16 22:03 Chloride 109.4 mmol/L (98-107) H 03/21/16 22:03 Carbon Dioxide 20 mmol/L (22-30) L 03/21/16 22:03 Anion Gap 17 mmol/L 03/21/16 22:03 BUN 28 mg/dL (9-20) H 03/21/16 22:03 Creatinine 2.2 mg/dL (0.8-1.5) H 03/21/16 22:03 Estimated GFR 37 ml/min 03/21/16 22:03 BUN/Creatinine Ratio 12.72 % 03/21/16 22:03 Glucose 93 mg/dL (75-100) 03/21/16 22:03 Lactic Acid 1.3 mmol/L (0.7-2.0) 03/21/16 22:06 Calcium 8.2 mg/dL (8.4-10.2) L 03/21/16 22:03 Total Bilirubin 0.4 mg/dL (0.1-1.2) 03/21/16 22:03 AST 30 units/L (5-40) 03/21/16 22:03 ALT 16 units/L (7-56) 03/21/16 22:03 Alkaline Phosphatase 144 units/L (35-129) H 03/21/16 22:03 Total Creatine Kinase 192 units/L (55-170) H 03/21/16 21:46 Total Protein 6.6 g/dL (6.3-8.2) 03/21/16 22:03 Albumin 2.6 g/dL (3.9-5) L 03/21/16 22:03 Albumin/Globulin Ratio 0.7 % 03/21/16 22:03
[2016-03-22] MEDS: SUSTIVA PO SCH (19:16)
[2016-03-22] MEDS: REMERON PO SCH (23:40)
--- NOTE | 2016-03-23 05:09 | Progress Note ---
Subjective Narrative: This is a short evaluation note , Pt seen and examined , awaiting [facility] , talked to radiology , will be done today , ask the Pt to have his sister to call me , gave him my kary number ,will do trans rectally , Objective Vital Signs - 12hr 03/22/16 21:06 O2 Sat by Pulse 94 Oximetry - Labs 03/21/16 22:04 03/21/16 22:03
[2016-03-23 08:28] LABS: Basophils % (Auto) 0.8 % (0.0-1.8); Eosinophils % (Auto) 3.9 % (0.0-4.3); Hematocrit 38.9 % (35.5-45.6); Hemoglobin 12.5 gm/dl (11.8-15.2); Mean Corpuscular HGB Conc 32 % (32-34); Mean Corpuscular Hemoglobin 37 pg (28-32); Mean Corpuscular Volume 114 fl (84-94); Platelet Count 179 K/mm3 (140-440); Red Blood Count 3.42 M/mm3 (3.65-5.03); White Blood Count 6.4 K/mm3 (4.5-11.0)
[2016-03-23 08:35] LABS: BUN/Creatinine Ratio 10.9; Calcium 7.9 mg/dL (8.4-10.2); Chloride 107.6 mmol/L (98-107); Potassium 4.1 mmol/L (3.6-5.0)
--- NOTE | 2016-03-23 08:42 | Progress Note ---
Assessment and Plan Assessment and plan: Recurrence of rectal prolapse. For surgery today by Dr. alvarado. CHF, systolic, stable. No acute exacerbation HIV. Continue HAART Chronic kidney disease creatinine is at baseline. Creatine 2.2 today History of CVA with right hemiplegia and aphasia.. Seizure disorder. keppra Full code status History Interval history: prolapse rectum Hospitalist Physical - Physical exam Narrative exam: Gen appearance: Not in acute distress, HEENT: Normocephalic,atraumatic Neck : supple, no JVD Lungs: Clear to auscultation bilaterally, no crackles or wheezes. Heart : S1 and S2 regular, tachy, no murmurs rubs or gallop, Abdomen: soft nontender, nondistended, normal bowel sounds Extremities: No edema, no clubbing or cyanosis, Neuro :awake alert oriented 3, right hemiplegia from prrevious stroke Psych :appropriate mood - Constitutional Vitals: Temp Pulse Resp BP Pulse Ox 98.4 F 88 18 122/66 95 03/23/16 08:00 03/23/16 08:00 03/23/16 08:00 03/23/16 08:00 03/23/16 08:00 Results - Labs CBC & Chem 7: 03/23/16 07:01 03/23/16 07:01 Labs: Laboratory Last Values WBC 6.4 K/mm3 (4.5-11.0) 03/23/16 07:01 RBC 3.42 M/mm3 (3.65-5.03) L 03/23/16 07:01 Hgb 12.5 gm/dl (11.8-15.2) 03/23/16 07:01 Hct 38.9 % (35.5-45.6) 03/23/16 07:01 MCV 114 fl (84-94) H 03/23/16 07:01 MCH 37 pg (28-32) H 03/23/16 07:01 MCHC 32 % (32-34) 03/23/16 07:01 RDW 14.0 % (13.2-15.2) 03/23/16 07:01 Plt Count 179 K/mm3 (140-440) 03/23/16 07:01 Lymph % (Auto) 27.9 % (13.4-35.0) 03/23/16 07:01 [place] % (Auto) 8.4 % (0.0-7.3) H 03/23/16 07:01 Eos % (Auto) 3.9 % (0.0-4.3) 03/23/16 07:01 Baso % (Auto) 0.8 % (0.0-1.8) 03/23/16 07:01 Lymph # 1.8 K/mm3 (1.2-5.4) 03/23/16 07:01 [place] # 0.5 K/mm3 (0.0-0.8) 03/23/16 07:01 Eos # 0.3 K/mm3 (0.0-0.4) 03/23/16 07:01 Baso # 0.1 K/mm3 (0.0-0.1) 03/23/16 07:01 Seg Neutrophils % 59.0 % (40.0-70.0) 03/23/16 07:01 Seg Neutrophils # 3.8 K/mm3 (1.8-7.7) 03/23/16 07:01 Sodium 142 mmol/L (137-145) 03/23/16 07:01 Potassium 4.1 mmol/L (3.6-5.0) 03/23/16 07:01 Chloride 107.6 mmol/L (98-107) H 03/23/16 07:01 Carbon Dioxide 23 mmol/L (22-30) 03/23/16 07:01 Anion Gap 16 mmol/L 03/23/16 07:01 BUN 24 mg/dL (9-20) H 03/23/16 07:01 Creatinine 2.2 mg/dL (0.8-1.5) H 03/23/16 07:01 Estimated GFR 37 ml/min 03/23/16 07:01 BUN/Creatinine Ratio 10.90 % 03/23/16 07:01 Glucose 75 mg/dL (75-100) 03/23/16 07:01 Lactic Acid 1.3 mmol/L (0.7-2.0) 03/21/16 22:06 Calcium 7.9 mg/dL (8.4-10.2) L 03/23/16 07:01 Total Bilirubin 0.4 mg/dL (0.1-1.2) 03/21/16 22:03 AST 30 units/L (5-40) 03/21/16 22:03 ALT 16 units/L (7-56) 03/21/16 22:03 Alkaline Phosphatase 144 units/L (35-129) H 03/21/16 22:03 Total Creatine Kinase 192 units/L (55-170) H 03/21/16 21:46 Total Protein 6.6 g/dL (6.3-8.2) 03/21/16 22:03 Albumin 2.6 g/dL (3.9-5) L 03/21/16 22:03 Albumin/Globulin Ratio 0.7 % 03/21/16 22:03
[2016-03-23] MEDS: HABITROL TD SCH (10:01)
[2016-03-23] MEDS: LOVENOX SUB-Q SCH (10:02)
--- NOTE | 2016-03-23 11:29 | XRay Report ---
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 Findings:. There is fecal matter noted in the rectosigmoid. No bowel distention. No radiopaque calculus or abnormal calcification. Impression: Fecal matter noted in the rectosigmoid.
[2016-03-23] MEDS ORDERED: FLEET PR ONE (14:00)
[2016-03-23] MEDS ORDERED: CITRATE OF MAGNESIA PO ONE (15:00)
[2016-03-23] MEDS: NORMODYNE PO SCH ×2 (17:01→21:40)
[2016-03-23] MEDS: SODIUM BICARBONATE PO SCH ×2 (17:01→21:41)
[2016-03-23] MEDS: LASIX PO SCH ×2 (17:01→21:40)
[2016-03-23] MEDS: ZIAGEN PO SCH (17:38)
[2016-03-23] MEDS: SUSTIVA PO SCH (17:38)
[2016-03-23] MEDS: EPIVIR PO SCH (17:39)
[2016-03-23] MEDS: COZAAR PO SCH (17:40)
[2016-03-23] MEDS: NORVASC PO SCH (17:40)
[2016-03-23] MEDS: FEOSOL PO SCH (17:40)
[2016-03-23] MEDS: KEPPRA PO SCH ×2 (17:41→21:40)
[2016-03-23] MEDS: THERAGRAN Tab PO SCH (17:41)
[2016-03-23] MEDS: REMERON PO SCH (21:41)
--- NOTE | 2016-03-24 01:17 | Consultation ---
HISTORY OF PRESENT ILLNESS: This man was seen yesterday as per request ____. Apparently, he was in the hospital few days ago because of a fairly good-sized rectal prolapse. For some reason, he went home to come back with the same problem. His main complaint was pain to the area and he is a known case of constipation. He told me that he sometimes he goes 1 week without a bowel movement. He is a known case of chronic kidney disease with congestive heart failure. He gives history also of a CVA a few years ago. He had a right hemiplegia and he is aphasic. He came back because of this problem. I think he came from a long-term in [facility]. I was asked to evaluate him from a general surgical point of view. I tried to locate his sister, I could not find her. I left my phone number with him. She did not call ____. PHYSICAL EXAMINATION: GENERAL: Showed a thin, slim black male who is in no distress. He is aphasic, although he can talk little bit, you cannot understand him. He had evidence of right hemiplegia. HEAD AND NECK: Essentially negative. Neck is supple. CHEST: Essentially clear to me. HEART: Sound normal. ABDOMEN: Protuberant, soft, benign. EXTREMITIES: Showed no evidence of any edema. RECTAL: Not performed. At this time, I could not pinpoint anything specific, the anal orifice is normal to me. However, today, when I saw his sister she took a picture of the rectal prolapse which is fairly good about 6-7 cm beyond the anal opening. With this finding, I believe this need to be addressed further. We tried to have a barium enema on him yesterday. He could not apparently because he had lot of fecal material today ____ try to do a bowel prep on him and try to do the enema tomorrow and then we will go from there. I did indicate to him and to sister that he will need an operation. ____. JOB# [id number] DIANN/JENNA
[2016-03-24] MEDS ORDERED: FLEET PR ONE (06:00)
--- NOTE | 2016-03-24 14:20 | Fluoroscopy Report ---
Barium enema: History: Rectal prolapse; stroke. A single column barium examination was attempted. Following placement of the rectal tube securing with an air-filled balloon barium was introduced by gravity. A significant amount of sigmoid spasm was present with slow filling of the sigmoid colon demonstrating numerous diverticula and muscular thickening. The examination was terminated at this point due to repeated balloon expulsions. Dr. Mota has been notified. Impression: Compromised exam demonstrating sigmoid diverticulosis with spasm.
--- NOTE | 2016-03-24 17:11 | Anesthesia Consultation ---
Anesthesia Consult and Med Hx Date of service: 03/25/16 - Airway Anesthetic Teeth Evaluation: Poor, Chipped ROM Head & Neck: Adequate Mental/Hyoid Distance: Adequate Mallampati Class: Class I Intubation Access Assessment: Good - Pre-Operative Health Status ASA Pre-Surgery Classification: ASA4 Proposed Anesthetic Plan: General - Pulmonary Hx Smoking: Yes (Admits to 4 cigs per day) Hx Asthma: No COPD: No Hx Pneumonia: No - Cardiovascular System Hx Hypertension: Yes - Central Nervous System CVA: Yes (In 2002. Right sided paralysis and some cognitive difficulty) Hx Psychiatric Problems: No - Endocrine Hx Renal Disease: Yes (not on dialysis) Hx End Stage Renal Disease: No - Hematic Hx Anemia: No Hx Sickle Cell Disease: No - Other Systems Hx Alcohol Use: No Hx Cancer: No - Additional Comments Anesthesia Medical History Comments: Admits to spinal surgery, but no complications. Patient can follow instructions, but has slowed communication. He is aware and can sign his own consents.
[2016-03-24] MEDS: EPIVIR PO SCH (20:13)
[2016-03-24] MEDS: FEOSOL PO SCH (20:13)
[2016-03-24] MEDS: COZAAR PO SCH (20:13)
[2016-03-24] MEDS: LASIX PO SCH ×2 (20:14→22:26)
[2016-03-24] MEDS: KEPPRA PO SCH ×2 (20:14→22:27)
[2016-03-24] MEDS: HABITROL TD SCH (20:14)
[2016-03-24] MEDS: NORVASC PO SCH (20:15)
[2016-03-24] MEDS: NORMODYNE PO SCH ×2 (20:15→22:26)
[2016-03-24] MEDS: LOVENOX SUB-Q SCH (20:15)
[2016-03-24] MEDS: THERAGRAN Tab PO SCH (20:16)
[2016-03-24] MEDS: SUSTIVA PO SCH (20:16)
[2016-03-24] MEDS: SODIUM BICARBONATE PO SCH ×2 (20:16→22:27)
[2016-03-24] MEDS: ZIAGEN PO SCH (20:17)
[2016-03-24] MEDS: REMERON PO SCH (22:26)
[2016-03-24] MEDS: VIAFLEX EMPTY CONTAINER IV SCH (23:05)
[2016-03-24] MEDS: NS IV SCH (23:05)
[2016-03-24] MEDS: FLAGYL IV SCH (23:05)
[2016-03-25] MEDS: FLAGYL IV SCH ×2 (06:30→22:00)
[2016-03-25] MEDS: NS IV SCH ×2 (06:30→22:00)
[2016-03-25] MEDS: VIAFLEX EMPTY CONTAINER IV SCH ×2 (06:30→22:00)
[2016-03-25] MEDS ORDERED: DILAUDID ONE (09:44)
[2016-03-25] MEDS ORDERED: DIPRIVAN 10 MG/ML IV ONE (09:44)
[2016-03-25] MEDS: COZAAR PO SCH (11:43)
[2016-03-25] MEDS: KEPPRA PO SCH ×2 (11:44→22:41)
[2016-03-25] MEDS: NORMODYNE PO SCH ×2 (11:44→22:41)
--- NOTE | 2016-03-25 12:07 | Anesthesia Day of Surgery ---
Anesthesia Day of Surgery - Day of Surgery Patient Examined: Yes Patient H&P Reviewed: Yes Patient is NPO: Yes Beta Blockers: Yes
[2016-03-25] MEDS: FEOSOL PO SCH (12:15)
[2016-03-25] MEDS: NORVASC PO SCH (12:15)
[2016-03-25] MEDS: HABITROL TD SCH (12:15)
[2016-03-25] MEDS: SODIUM BICARBONATE PO SCH ×2 (12:15→22:42)
[2016-03-25] MEDS ORDERED: ZOFRAN IV PRN (12:15)
[2016-03-25] MEDS: EPIVIR PO SCH (12:15)
[2016-03-25] MEDS: LOVENOX SUB-Q SCH (12:15)
[2016-03-25] MEDS: LASIX PO SCH ×2 (12:15→22:41)
[2016-03-25] MEDS: THERAGRAN Tab PO SCH (12:16)
[2016-03-25] MEDS: SUSTIVA PO SCH (12:16)
[2016-03-25] MEDS: ZIAGEN PO SCH (12:16)
[2016-03-25] MEDS ORDERED: APRESOLINE IV PRN (12:20)
[2016-03-25] MEDS ORDERED: NACL 0.9% 1000 ML 1,000 ML ONE (12:28)
[2016-03-25] MEDS ORDERED: NACL 0.9% 1000 ML 1,000 ML IV SCH (13:00)
[2016-03-25 13:14] LABS: ISTAT K 4.1 (3.5-4.9)
[2016-03-25] MEDS ORDERED: NEO SYNEPHRINE/NS Syringe(OR USE) IV ONE (13:20)
[2016-03-25] MEDS ORDERED: AMIDATE IV ONE (13:20)
[2016-03-25] MEDS ORDERED: SUBLIMAZE ONE (13:21)
[2016-03-25] MEDS ORDERED: ePHEDrine SULFATE ONE (13:47)
[2016-03-25] MEDS ORDERED: NACL 0.9% IR ONE (14:05)
[2016-03-25] MEDS ORDERED: FLAGYL 500 MG/100 ML 500 MG/100 ML BAG IV ONE (14:09)
[2016-03-25] MEDS ORDERED: ZOFRAN ONE (14:49)
[2016-03-25] MEDS ORDERED: ROBINUL ONE (14:49)
[2016-03-25] MEDS ORDERED: BLOXIVERZ ONE (14:49)
[2016-03-25] MEDS ORDERED: ZEMURON IV ONE (14:49)
[2016-03-25] MEDS ORDERED: XYLOCAINE MPF 2% ONE (14:50)
--- NOTE | 2016-03-25 15:03 | Progress Note ---
Assessment and Plan Assessment and plan: Recurrence of rectal prolapse. For surgery today by Dr. alvarado. I discussed this with Dr. alvarado and sister of patient Chronic CHF, systolic, stable. No acute exacerbation HIV. Continue HAART Chronic kidney disease creatinine is at baseline. History of CVA with right hemiplegia and aphasia.. Seizure disorder. Continue keppra Full code status History Interval history: prolapse rectum Hospitalist Physical - Physical exam Narrative exam: Gen appearance: Not in acute distress, HEENT: Normocephalic,atraumatic Neck : supple, no JVD Lungs: Clear to auscultation bilaterally, no crackles or wheezes. Heart : S1 and S2 regular, tachy, no murmurs rubs or gallop, Abdomen: soft, nontender, nondistended, normal bowel sounds Extremities: No edema, no clubbing or cyanosis, Neuro :awake alert oriented 3, right hemiplegia from prrevious stroke Psych :appropriate mood - Constitutional Vitals: Temp Pulse Resp BP Pulse Ox 99.8 F H 98 H 22 135/82 99 03/25/16 12:10 03/25/16 12:10 03/25/16 12:10 03/25/16 12:55 03/25/16 12:10 Results - Labs CBC & Chem 7: 03/23/16 07:01 03/25/16 12:17 Labs: Laboratory Last Values WBC 6.4 K/mm3 (4.5-11.0) 03/23/16 07:01 RBC 3.42 M/mm3 (3.65-5.03) L 03/23/16 07:01 Hgb 12.5 gm/dl (11.8-15.2) 03/23/16 07:01 POC Hgb 12.6 (12-17) 03/25/16 13:09 Hct 38.9 % (35.5-45.6) 03/23/16 07:01 POC Hct 37 (38-51) L 03/25/16 13:09 MCV 114 fl (84-94) H 03/23/16 07:01 MCH 37 pg (28-32) H 03/23/16 07:01 MCHC 32 % (32-34) 03/23/16 07:01 RDW 14.0 % (13.2-15.2) 03/23/16 07:01 Plt Count 179 K/mm3 (140-440) 03/23/16 07:01 Lymph % (Auto) 27.9 % (13.4-35.0) 03/23/16 07:01 [place] % (Auto) 8.4 % (0.0-7.3) H 03/23/16 07:01 Eos % (Auto) 3.9 % (0.0-4.3) 03/23/16 07:01 Baso % (Auto) 0.8 % (0.0-1.8) 03/23/16 07:01 Lymph # 1.8 K/mm3 (1.2-5.4) 03/23/16 07:01 [place] # 0.5 K/mm3 (0.0-0.8) 03/23/16 07:01 Eos # 0.3 K/mm3 (0.0-0.4) 03/23/16 07:01 Baso # 0.1 K/mm3 (0.0-0.1) 03/23/16 07:01 Seg Neutrophils % 59.0 % (40.0-70.0) 03/23/16 07:01 Seg Neutrophils # 3.8 K/mm3 (1.8-7.7) 03/23/16 07:01 POC Sodium 142 mmol/L (138-146) 03/25/16 13:09 POC Potassium 4.1 (3.5-4.9) 03/25/16 13:09 POC Chloride 108 (98-109) 03/25/16 13:09 Sodium 142 mmol/L (137-145) 03/23/16 07:01 Potassium 4.9 mmol/L (3.6-5.0) 03/25/16 12:17 Chloride 107.6 mmol/L (98-107) H 03/23/16 07:01 Carbon Dioxide 23 mmol/L (22-30) 03/23/16 07:01 Anion Gap 16 mmol/L 03/23/16 07:01 POC BUN 21 mg/dl (8-26) 03/25/16 13:09 BUN 24 mg/dL (9-20) H 03/23/16 07:01 Creatinine 2.2 mg/dL (0.8-1.5) H 03/23/16 07:01 Estimated GFR 37 ml/min 03/23/16 07:01 BUN/Creatinine Ratio 10.90 % 03/23/16 07:01 Glucose 75 mg/dL (75-100) 03/23/16 07:01 POC Glucose 85 (70-105) 03/25/16 13:09 Lactic Acid 1.3 mmol/L (0.7-2.0) 03/21/16 22:06 Calcium 7.9 mg/dL (8.4-10.2) L 03/23/16 07:01 Total Bilirubin 0.4 mg/dL (0.1-1.2) 03/21/16 22:03 AST 30 units/L (5-40) 03/21/16 22:03 ALT 16 units/L (7-56) 03/21/16 22:03 Alkaline Phosphatase 144 units/L (35-129) H 03/21/16 22:03 Total Creatine Kinase 192 units/L (55-170) H 03/21/16 21:46 Total Protein 6.6 g/dL (6.3-8.2) 03/21/16 22:03 Albumin 2.6 g/dL (3.9-5) L 03/21/16 22:03 Albumin/Globulin Ratio 0.7 % 03/21/16 22:03
[2016-03-25] MEDS: DILAUDID IV PRN ×3 (15:30→22:45)
--- NOTE | 2016-03-25 15:56 | Post Anesthesia Evaluation ---
- Post Anesthesia Evaluation Patient Participated: Yes Airway Patent: Yes Stable Respiratory Function: Yes Temp > 96.8F: Yes Pain Manageable: Yes Adequeate Hydration: Yes Anesthesia Complications: No Block Receding Appropriately: Not Applicable
[2016-03-25] MEDS ORDERED: D5/0.45NS 1,000 ML IV SCH (16:00)
--- NOTE | 2016-03-25 17:22 | Operative Report ---
PREOPERATIVE DIAGNOSES: 1. Rectal prolapse. 2. Very redundant descending and sigmoid colon. POSTOPERATIVE DIAGNOSES: 1. Rectal prolapse. 2. Very redundant descending and sigmoid colon. SURGERY: Exploratory laparotomy, intra-abdominal repair of rectal prolapse with mobilization of the rectum superiorly, removal of the descending colon and sigmoid colon with descending colostomy. ASSEMBLY SUPERVISOR: Dr. Alvarez. ANESTHESIA: General. BLOOD LOSS: Minimal. FINDINGS: The patient has very redundant descending colon and sigmoid with multiple diverticula all around with evidence of inflammation there and there is some ascitic fluid within the abdominal cavity. We assessed the situation. I believe it is best to have the entire descending colon removed. We will do superior descending colostomy and remove the rectum as down as possible and transfixing it et to the retroperitoneum with interrupted stitches of 3-0 Vicryl. DESCRIPTION OF PROCEDURE: With the patient in supine position, prepped and draped in usual fashion, we made the midline incision from above the umbilicus all the way to the suprapubic area to the fascia that was incised and the peritoneum was entered. Once we were there, we could see that the descending colon was very redundant all around with multiple diverticula at its distal aspect. So, we chose a point where we used the MAURA to transect at the healthy looking and then went inferiorly, dissecting the descending colon and the rectum all the way, using the LigaSure for that purpose and we were able to go all the way to a level of the urinary bladder, at which point this area of the rectum was transected using the MAURA and then we were able to isolate this area and it was sutured at its mouth with use of 3-0 Vicryl after applying the anca. Then went ahead and we dissected the descending colon all the way superiorly to a healthy looking area. We used for that purpose the LigaSure and then we used also the MAURA to transect it right there and then through a rounded incision, we were able to pull the proximal aspect through the abdominal wall. We had good hemostasis. We were well satisfied. The area was then again irrigated thoroughly with normal saline. Then, the fascia was closed with interrupted stitches of #1 Vicryl and anca for skin. The colostomy was matured in the operating room, transecting it about 2 cm above the skin level, tacking it to the skin edge with use of 3-0 Vicryl, making sure to look like a nipple. I was able to introduce my finger through the colostomy easily. Then, an appliance was applied. The patient was then transferred to the recovery room in good condition. We will need to keep the [place] may be until tomorrow. JOB# [id number] DIANN/JENNA
[2016-03-25] MEDS: APRESOLINE IV PRN (21:00)
[2016-03-25] MEDS: REMERON PO SCH (22:42)
--- NOTE | 2016-03-26 09:05 | Progress Note ---
Assessment and Plan Assessment and plan: Recurrence of rectal prolapse. For surgery today by Dr. alvarado. I discussed this with Dr. alvarado and sister of patient Chronic CHF, systolic, stable. No acute exacerbation HIV. Continue HAART Chronic kidney disease creatinine is at baseline. History of CVA with right hemiplegia and aphasia.. Seizure disorder. Continue keppra Full code status History Interval history: prolapsed rectum, no chest pain Hospitalist Physical - Physical exam Narrative exam: Gen appearance: Not in acute distress, HEENT: Normocephalic,atraumatic Neck : supple, no JVD Lungs: Clear to auscultation bilaterally, no crackles or wheezes. Heart : S1 and S2 regular, tachy, no murmurs rubs or gallop, Abdomen: soft, nontender, nondistended, normal bowel sounds Extremities: No edema, no clubbing or cyanosis, Neuro :awake alert oriented 3, right hemiplegia from prrevious stroke Psych :appropriate mood - Constitutional Vitals: Temp Pulse Resp BP Pulse Ox 100.3 F H 108 H 18 155/86 97 03/26/16 08:00 03/26/16 08:00 03/26/16 08:00 03/26/16 08:00 03/26/16 08:00 Results - Labs CBC & Chem 7: 03/23/16 07:01 03/25/16 12:17 Labs: Laboratory Last Values WBC 6.4 K/mm3 (4.5-11.0) 03/23/16 07:01 RBC 3.42 M/mm3 (3.65-5.03) L 03/23/16 07:01 Hgb 12.5 gm/dl (11.8-15.2) 03/23/16 07:01 POC Hgb 12.6 (12-17) 03/25/16 13:09 Hct 38.9 % (35.5-45.6) 03/23/16 07:01 POC Hct 37 (38-51) L 03/25/16 13:09 MCV 114 fl (84-94) H 03/23/16 07:01 MCH 37 pg (28-32) H 03/23/16 07:01 MCHC 32 % (32-34) 03/23/16 07:01 RDW 14.0 % (13.2-15.2) 03/23/16 07:01 Plt Count 179 K/mm3 (140-440) 03/23/16 07:01 Lymph % (Auto) 27.9 % (13.4-35.0) 03/23/16 07:01 [place] % (Auto) 8.4 % (0.0-7.3) H 03/23/16 07:01 Eos % (Auto) 3.9 % (0.0-4.3) 03/23/16 07:01 Baso % (Auto) 0.8 % (0.0-1.8) 03/23/16 07:01 Lymph # 1.8 K/mm3 (1.2-5.4) 03/23/16 07:01 [place] # 0.5 K/mm3 (0.0-0.8) 03/23/16 07:01 Eos # 0.3 K/mm3 (0.0-0.4) 03/23/16 07:01 Baso # 0.1 K/mm3 (0.0-0.1) 03/23/16 07:01 Seg Neutrophils % 59.0 % (40.0-70.0) 03/23/16 07:01 Seg Neutrophils # 3.8 K/mm3 (1.8-7.7) 03/23/16 07:01 POC Sodium 142 mmol/L (138-146) 03/25/16 13:09 POC Potassium 4.1 (3.5-4.9) 03/25/16 13:09 POC Chloride 108 (98-109) 03/25/16 13:09 Sodium 142 mmol/L (137-145) 03/23/16 07:01 Potassium 4.9 mmol/L (3.6-5.0) 03/25/16 12:17 Chloride 107.6 mmol/L (98-107) H 03/23/16 07:01 Carbon Dioxide 23 mmol/L (22-30) 03/23/16 07:01 Anion Gap 16 mmol/L 03/23/16 07:01 POC BUN 21 mg/dl (8-26) 03/25/16 13:09 BUN 24 mg/dL (9-20) H 03/23/16 07:01 Creatinine 2.2 mg/dL (0.8-1.5) H 03/23/16 07:01 Estimated GFR 37 ml/min 03/23/16 07:01 BUN/Creatinine Ratio 10.90 % 03/23/16 07:01 Glucose 75 mg/dL (75-100) 03/23/16 07:01 POC Glucose 85 (70-105) 03/25/16 13:09 Lactic Acid 1.3 mmol/L (0.7-2.0) 03/21/16 22:06 Calcium 7.9 mg/dL (8.4-10.2) L 03/23/16 07:01 Total Bilirubin 0.4 mg/dL (0.1-1.2) 03/21/16 22:03 AST 30 units/L (5-40) 03/21/16 22:03 ALT 16 units/L (7-56) 03/21/16 22:03 Alkaline Phosphatase 144 units/L (35-129) H 03/21/16 22:03 Total Creatine Kinase 192 units/L (55-170) H 03/21/16 21:46 Total Protein 6.6 g/dL (6.3-8.2) 03/21/16 22:03 Albumin 2.6 g/dL (3.9-5) L 03/21/16 22:03 Albumin/Globulin Ratio 0.7 % 03/21/16 22:03
[2016-03-26] MEDS: DILAUDID IV PRN (09:33)
[2016-03-26] MEDS: THERAGRAN Tab PO SCH (10:00)
[2016-03-26] MEDS: LOVENOX SUB-Q SCH (10:00)
[2016-03-26] MEDS: HABITROL TD SCH (10:00)
[2016-03-26] MEDS: FEOSOL PO SCH (10:00)
[2016-03-26] MEDS: ZIAGEN PO SCH (10:00)
[2016-03-26] MEDS: EPIVIR PO SCH (10:00)
[2016-03-26] MEDS: LASIX PO SCH ×2 (10:00→22:51)
[2016-03-26] MEDS: KEPPRA PO SCH ×2 (10:00→22:51)
[2016-03-26] MEDS: NORMODYNE PO SCH ×2 (10:00→22:51)
[2016-03-26] MEDS: SODIUM BICARBONATE PO SCH ×2 (10:00→22:52)
[2016-03-26] MEDS: SUSTIVA PO SCH (10:00)
[2016-03-26] MEDS: COZAAR PO SCH (10:00)
[2016-03-26] MEDS: NORVASC PO SCH (10:00)
--- NOTE | 2016-03-26 18:13 | Progress Note ---
Subjective Patient Reports: Positive: no new complaints, no flatus Narrative: stable , abd soft , colostomy viable some sanguinous fluid will Dc NG start OP , Objective Vital Signs - 12hr 03/26/16 03/26/16 03/26/16 08:00 12:00 15:03 Temperature 100.3 F H 97.8 F 98.8 F Pulse Rate [ 108 H 104 H 106 H Right Radial] Respiratory 18 18 18 Rate Blood Pressure 155/86 142/84 144/83 [Right Arm] O2 Sat by Pulse 97 Oximetry - Labs 03/23/16 07:01 03/25/16 12:17
[2016-03-26] MEDS: D5/0.45NS 1,000 ML IV SCH (19:10)
[2016-03-26] MEDS: REMERON PO SCH (22:52)
[2016-03-27] MEDS: DILAUDID IV PRN ×5 (00:20→21:26)
[2016-03-27] MEDS: APRESOLINE IV PRN (08:16)
[2016-03-27] MEDS: D5/0.45NS 1,000 ML IV SCH (08:17)
[2016-03-27] MEDS: NORMODYNE PO SCH ×2 (09:39→21:28)
[2016-03-27] MEDS: FEOSOL PO SCH (09:39)
[2016-03-27] MEDS: SODIUM BICARBONATE PO SCH ×2 (09:39→21:35)
[2016-03-27] MEDS: KEPPRA PO SCH ×2 (09:39→21:35)
[2016-03-27] MEDS: LASIX PO SCH (09:40)
[2016-03-27] MEDS: NORVASC PO SCH (09:40)
[2016-03-27] MEDS: THERAGRAN Tab PO SCH (09:41)
[2016-03-27] MEDS: LOVENOX SUB-Q SCH (09:41)
[2016-03-27] MEDS: HABITROL TD SCH (09:41)
[2016-03-27] MEDS: EPIVIR PO SCH (09:42)
[2016-03-27] MEDS: SUSTIVA PO SCH (09:42)
[2016-03-27] MEDS: COZAAR PO SCH (09:42)
[2016-03-27] MEDS: ZIAGEN PO SCH (09:43)
--- NOTE | 2016-03-27 10:47 | Progress Note ---
Assessment and Plan Assessment and plan: Recurrence of rectal prolapse. s/p surgery, colostomy on 03/[address] alvarado. Continue pain control with Dilaudid 1 mg IV every 4 hours. Chronic CHF, systolic, stable. No acute exacerbation HIV. Continue HAART Chronic kidney disease creatinine is at baseline. History of CVA with right hemiplegia and aphasia.. Seizure disorder. Continue keppra Full code status History Interval history: He is post op day #2 surgery for prolapsed rectum, Abd pain Hospitalist Physical - Physical exam Narrative exam: Gen appearance: Not in acute distress, HEENT: Normocephalic,atraumatic Neck : supple, no JVD Lungs: Clear to auscultation bilaterally, no crackles or wheezes. Heart : S1 and S2 regular, tachy, no murmurs rubs or gallop, Abdomen: soft, tender, surgical wound covered with dressing, colostomy, non- distended, bowel sounds present Extremities: No edema, no clubbing or cyanosis, Neuro :awake alert oriented 3, right hemiplegia from previous stroke Psych :appropriate mood - Constitutional Vitals: Temp Pulse Resp BP Pulse Ox 98.8 F 105 H 20 152/93 97 03/26/16 15:03 03/27/16 09:42 03/27/16 08:15 03/27/16 09:42 03/26/16 08:00 Results - Labs CBC & Chem 7: 03/23/16 07:01 03/25/16 12:17 Labs: Laboratory Last Values WBC 6.4 K/mm3 (4.5-11.0) 03/23/16 07:01 RBC 3.42 M/mm3 (3.65-5.03) L 03/23/16 07:01 Hgb 12.5 gm/dl (11.8-15.2) 03/23/16 07:01 POC Hgb 12.6 (12-17) 03/25/16 13:09 Hct 38.9 % (35.5-45.6) 03/23/16 07:01 POC Hct 37 (38-51) L 03/25/16 13:09 MCV 114 fl (84-94) H 03/23/16 07:01 MCH 37 pg (28-32) H 03/23/16 07:01 MCHC 32 % (32-34) 03/23/16 07:01 RDW 14.0 % (13.2-15.2) 03/23/16 07:01 Plt Count 179 K/mm3 (140-440) 03/23/16 07:01 Lymph % (Auto) 27.9 % (13.4-35.0) 03/23/16 07:01 [place] % (Auto) 8.4 % (0.0-7.3) H 03/23/16 07:01 Eos % (Auto) 3.9 % (0.0-4.3) 03/23/16 07:01 Baso % (Auto) 0.8 % (0.0-1.8) 03/23/16 07:01 Lymph # 1.8 K/mm3 (1.2-5.4) 03/23/16 07:01 [place] # 0.5 K/mm3 (0.0-0.8) 03/23/16 07:01 Eos # 0.3 K/mm3 (0.0-0.4) 03/23/16 07:01 Baso # 0.1 K/mm3 (0.0-0.1) 03/23/16 07:01 Seg Neutrophils % 59.0 % (40.0-70.0) 03/23/16 07:01 Seg Neutrophils # 3.8 K/mm3 (1.8-7.7) 03/23/16 07:01 POC Sodium 142 mmol/L (138-146) 03/25/16 13:09 POC Potassium 4.1 (3.5-4.9) 03/25/16 13:09 POC Chloride 108 (98-109) 03/25/16 13:09 Sodium 142 mmol/L (137-145) 03/23/16 07:01 Potassium 4.9 mmol/L (3.6-5.0) 03/25/16 12:17 Chloride 107.6 mmol/L (98-107) H 03/23/16 07:01 Carbon Dioxide 23 mmol/L (22-30) 03/23/16 07:01 Anion Gap 16 mmol/L 03/23/16 07:01 POC BUN 21 mg/dl (8-26) 03/25/16 13:09 BUN 24 mg/dL (9-20) H 03/23/16 07:01 Creatinine 2.2 mg/dL (0.8-1.5) H 03/23/16 07:01 Estimated GFR 37 ml/min 03/23/16 07:01 BUN/Creatinine Ratio 10.90 % 03/23/16 07:01 Glucose 75 mg/dL (75-100) 03/23/16 07:01 POC Glucose 85 (70-105) 03/25/16 13:09 Lactic Acid 1.3 mmol/L (0.7-2.0) 03/21/16 22:06 Calcium 7.9 mg/dL (8.4-10.2) L 03/23/16 07:01 Total Bilirubin 0.4 mg/dL (0.1-1.2) 03/21/16 22:03 AST 30 units/L (5-40) 03/21/16 22:03 ALT 16 units/L (7-56) 03/21/16 22:03 Alkaline Phosphatase 144 units/L (35-129) H 03/21/16 22:03 Total Creatine Kinase 192 units/L (55-170) H 03/21/16 21:46 Total Protein 6.6 g/dL (6.3-8.2) 03/21/16 22:03 Albumin 2.6 g/dL (3.9-5) L 03/21/16 22:03 Albumin/Globulin Ratio 0.7 % 03/21/16 22:03
--- NOTE | 2016-03-27 13:47 | Progress Note ---
Subjective Narrative: talked to RN Pt doing fine ,tolerating full liq , will advance diet ,lower the IV , Objective Vital Signs - 12hr 03/27/16 03/27/16 03/27/16 08:15 08:16 08:45 Pulse Rate 112 H Respiratory 20 20 Rate Respiratory Rate [Chest] Respiratory Rate [ Generalized] Blood Pressure 180/114 03/27/16 03/27/16 03/27/16 09:39 09:40 09:42 Pulse Rate 105 H 105 H 105 H Respiratory Rate Respiratory Rate [Chest] Respiratory Rate [ Generalized] Blood Pressure 152/93 152/93 152/93 03/27/16 03/27/16 11:00 12:03 Pulse Rate Respiratory 16 Rate Respiratory 20 Rate [Chest] Respiratory 20 Rate [ Generalized] Blood Pressure - Labs 03/23/16 07:01 03/25/16 12:17
[2016-03-27] MEDS: REMERON PO SCH (21:27)
[2016-03-28] MEDS: PERCOCET 5/325 PO PRN ×4 (00:24→21:03)
[2016-03-28] MEDS: D5/0.45NS 1,000 ML IV SCH (02:45)
[2016-03-28] MEDS: DILAUDID IV PRN ×4 (03:15→16:50)
[2016-03-28] MEDS: LOVENOX SUB-Q SCH (09:07)
[2016-03-28] MEDS: FEOSOL PO SCH (09:08)
[2016-03-28] MEDS: SUSTIVA PO SCH (09:08)
[2016-03-28] MEDS: HABITROL TD SCH (09:08)
[2016-03-28] MEDS: ZIAGEN PO SCH (09:09)
[2016-03-28] MEDS: NORMODYNE PO SCH ×2 (09:09→21:04)
[2016-03-28] MEDS: EPIVIR PO SCH (09:10)
[2016-03-28] MEDS: KEPPRA PO SCH ×2 (09:10→21:03)
[2016-03-28] MEDS: NORVASC PO SCH (09:10)
[2016-03-28] MEDS: THERAGRAN Tab PO SCH (09:11)
[2016-03-28] MEDS: COZAAR PO SCH (09:12)
[2016-03-28] MEDS: SODIUM BICARBONATE PO SCH ×2 (09:13→21:03)
[2016-03-28] MEDS: ZOFRAN IV PRN (09:15)
--- NOTE | 2016-03-28 09:27 | Progress Note ---
Assessment and Plan Assessment and plan: Recurrence of rectal prolapse. s/p surgery, colostomy on 03/[address] alvarado. Continue pain control with Dilaudid 1 mg IV every 4 hours. Chronic CHF, systolic, stable. No acute exacerbation. No shortness of breath. HIV. Continue HAART Chronic kidney disease creatinine is at baseline. Repeat in am History of CVA with right hemiplegia and aphasia.. Seizure disorder. Continue keppra Full code status History Interval history: He is post op day #3 surgery for prolapsed rectum, Abdominal pain, started on diet Hospitalist Physical - Physical exam Narrative exam: Gen appearance: Not in acute distress, HEENT: Normocephalic,atraumatic Neck : supple, no JVD Lungs: Clear to auscultation bilaterally, no crackles or wheezes. Heart : S1 and S2 regular, tachy, no murmurs rubs or gallop, Abdomen: soft, tender, surgical wound covered with dressing, colostomy, non- distended, bowel sounds present Extremities: No edema, no clubbing or cyanosis, Neuro :awake alert oriented 3, right hemiplegia from previous stroke Psych :appropriate mood - Constitutional Vitals: Temp Pulse Resp BP Pulse Ox 98.7 F 96 H 20 152/101 100 03/28/16 08:00 03/28/16 09:12 03/28/16 09:16 03/28/16 09:12 03/28/16 08:00 Results - Labs CBC & Chem 7: 03/23/16 07:01 03/25/16 12:17 Labs: Laboratory Last Values WBC 6.4 K/mm3 (4.5-11.0) 03/23/16 07:01 RBC 3.42 M/mm3 (3.65-5.03) L 03/23/16 07:01 Hgb 12.5 gm/dl (11.8-15.2) 03/23/16 07:01 POC Hgb 12.6 (12-17) 03/25/16 13:09 Hct 38.9 % (35.5-45.6) 03/23/16 07:01 POC Hct 37 (38-51) L 03/25/16 13:09 MCV 114 fl (84-94) H 03/23/16 07:01 MCH 37 pg (28-32) H 03/23/16 07:01 MCHC 32 % (32-34) 03/23/16 07:01 RDW 14.0 % (13.2-15.2) 03/23/16 07:01 Plt Count 179 K/mm3 (140-440) 03/23/16 07:01 Lymph % (Auto) 27.9 % (13.4-35.0) 03/23/16 07:01 [place] % (Auto) 8.4 % (0.0-7.3) H 03/23/16 07:01 Eos % (Auto) 3.9 % (0.0-4.3) 03/23/16 07:01 Baso % (Auto) 0.8 % (0.0-1.8) 03/23/16 07:01 Lymph # 1.8 K/mm3 (1.2-5.4) 03/23/16 07:01 [place] # 0.5 K/mm3 (0.0-0.8) 03/23/16 07:01 Eos # 0.3 K/mm3 (0.0-0.4) 03/23/16 07:01 Baso # 0.1 K/mm3 (0.0-0.1) 03/23/16 07:01 Seg Neutrophils % 59.0 % (40.0-70.0) 03/23/16 07:01 Seg Neutrophils # 3.8 K/mm3 (1.8-7.7) 03/23/16 07:01 POC Sodium 142 mmol/L (138-146) 03/25/16 13:09 POC Potassium 4.1 (3.5-4.9) 03/25/16 13:09 POC Chloride 108 (98-109) 03/25/16 13:09 Sodium 142 mmol/L (137-145) 03/23/16 07:01 Potassium 4.9 mmol/L (3.6-5.0) 03/25/16 12:17 Chloride 107.6 mmol/L (98-107) H 03/23/16 07:01 Carbon Dioxide 23 mmol/L (22-30) 03/23/16 07:01 Anion Gap 16 mmol/L 03/23/16 07:01 POC BUN 21 mg/dl (8-26) 03/25/16 13:09 BUN 24 mg/dL (9-20) H 03/23/16 07:01 Creatinine 2.2 mg/dL (0.8-1.5) H 03/23/16 07:01 Estimated GFR 37 ml/min 03/23/16 07:01 BUN/Creatinine Ratio 10.90 % 03/23/16 07:01 Glucose 75 mg/dL (75-100) 03/23/16 07:01 POC Glucose 85 (70-105) 03/25/16 13:09 Lactic Acid 1.3 mmol/L (0.7-2.0) 03/21/16 22:06 Calcium 7.9 mg/dL (8.4-10.2) L 03/23/16 07:01 Total Bilirubin 0.4 mg/dL (0.1-1.2) 03/21/16 22:03 AST 30 units/L (5-40) 03/21/16 22:03 ALT 16 units/L (7-56) 03/21/16 22:03 Alkaline Phosphatase 144 units/L (35-129) H 03/21/16 22:03 Total Creatine Kinase 192 units/L (55-170) H 03/21/16 21:46 Total Protein 6.6 g/dL (6.3-8.2) 03/21/16 22:03 Albumin 2.6 g/dL (3.9-5) L 03/21/16 22:03 Albumin/Globulin Ratio 0.7 % 03/21/16 22:03
--- NOTE | 2016-03-28 13:05 | Progress Note ---
Subjective Patient Reports: Positive: feels better Narrative: doing OK colostomy viable on soft diet home soon , Objective Vital Signs - 12hr 03/28/16 03/28/16 03/28/16 08:00 08:02 08:32 Temperature 98.7 F Pulse Rate Pulse Rate [ 96 H Apical] Respiratory 18 20 20 Rate Respiratory 20 Rate [Chest] Blood Pressure Blood Pressure 152/101 [Right Arm] O2 Sat by Pulse 100 Oximetry 03/28/16 03/28/16 03/28/16 09:09 09:10 09:12 Temperature Pulse Rate 96 H 96 H 96 H Pulse Rate [ Apical] Respiratory Rate Respiratory Rate [Chest] Blood Pressure 152/101 152/101 152/101 Blood Pressure [Right Arm] O2 Sat by Pulse Oximetry 03/28/16 03/28/16 03/28/16 09:16 10:16 11:45 Temperature Pulse Rate Pulse Rate [ Apical] Respiratory 20 20 20 Rate Respiratory Rate [Chest] Blood Pressure Blood Pressure [Right Arm] O2 Sat by Pulse Oximetry 03/28/16 11:58 Temperature 98.1 F Pulse Rate Pulse Rate [ 98 H Apical] Respiratory 16 Rate Respiratory Rate [Chest] Blood Pressure Blood Pressure 129/86 [Right Arm] O2 Sat by Pulse 98 Oximetry - Labs 03/23/16 07:01 03/25/16 12:17
[2016-03-28] MEDS: REMERON PO SCH (21:03)
[2016-03-29] MEDS: APRESOLINE IV PRN (01:41)
[2016-03-29] MEDS: D5/0.45NS 1,000 ML IV SCH ×2 (01:41→22:11)
[2016-03-29] MEDS: DILAUDID IV PRN ×2 (01:42→08:55)
[2016-03-29 04:44] LABS: Hematocrit 40.4 % (35.5-45.6); Hemoglobin 12.9 gm/dl (11.8-15.2); Mean Corpuscular HGB Conc 32 % (32-34); Mean Corpuscular Hemoglobin 36 pg (28-32); Mean Corpuscular Volume 111 fl (84-94); Platelet Count 211 K/mm3 (140-440); Red Blood Count 3.63 M/mm3 (3.65-5.03); Red Cell Distribution Width 13.4 % (13.2-15.2); White Blood Count 11.4 K/mm3 (4.5-11.0)
[2016-03-29 04:59] LABS: BUN/Creatinine Ratio 9.56; Calcium 8.4 mg/dL (8.4-10.2); Chloride 109.2 mmol/L (98-107); Potassium 4.4 mmol/L (3.6-5.0)
[2016-03-29] MEDS: PERCOCET 5/325 PO PRN (05:11)
[2016-03-29] MEDS: ZOFRAN IV PRN (08:30)
[2016-03-29] MEDS: NORVASC PO SCH (11:26)
[2016-03-29] MEDS: LOVENOX SUB-Q SCH (11:26)
[2016-03-29] MEDS: NORMODYNE PO SCH ×2 (11:27→22:10)
[2016-03-29] MEDS: HABITROL TD SCH (11:28)
[2016-03-29] MEDS: KEPPRA PO SCH ×2 (11:30→22:12)
[2016-03-29] MEDS: SUSTIVA PO SCH (11:30)
[2016-03-29] MEDS: SODIUM BICARBONATE PO SCH ×2 (11:31→22:12)
[2016-03-29] MEDS: FEOSOL PO SCH (11:35)
[2016-03-29] MEDS: THERAGRAN Tab PO SCH (11:35)
[2016-03-29] MEDS: COZAAR PO SCH (11:36)
[2016-03-29] MEDS: ZIAGEN PO SCH (11:43)
[2016-03-29] MEDS: EPIVIR PO SCH (11:43)
--- NOTE | 2016-03-29 12:39 | Progress Note ---
Assessment and Plan Assessment and plan: Recurrence of rectal prolapse. s/p surgery, colostomy on 03/[address] alvarado. Continue pain control with Dilaudid 1 mg IV every 4 hours. Chronic CHF, systolic, stable. No acute exacerbation. No shortness of breath. HIV. Continue HAART Chronic kidney disease creatinine is at baseline. History of CVA with right hemiplegia and aphasia.. Seizure disorder. Continue keppra Full code status Disposition. Likely d/c to SNF in few days History Interval history: He is post op day #4 surgery for prolapsed rectum, Still having abdominal pain, started on diet Hospitalist Physical - Physical exam Narrative exam: Gen appearance: Not in acute distress, HEENT: Normocephalic,atraumatic Neck : supple, no JVD Lungs: Clear to auscultation bilaterally, no crackles or wheezes. Heart : S1 and S2 regular, tachy, no murmurs rubs or gallop, Abdomen: soft, tender, surgical wound covered with dressing, colostomy, non- distended, bowel sounds present Extremities: No edema, no clubbing or cyanosis, Neuro :awake alert oriented 3, right hemiplegia from previous stroke Psych :appropriate mood - Constitutional Vitals: Temp Pulse Resp BP Pulse Ox 98.4 F 98 H 18 144/98 97 03/29/16 08:00 03/29/16 08:00 03/29/16 08:00 03/29/16 08:00 03/29/16 08:00 Results - Labs CBC & Chem 7: 03/29/16 04:24 03/29/16 04:24 Labs: Laboratory Last Values WBC 11.4 K/mm3 (4.5-11.0) H 03/29/16 04:24 RBC 3.63 M/mm3 (3.65-5.03) L 03/29/16 04:24 Hgb 12.9 gm/dl (11.8-15.2) 03/29/16 04:24 POC Hgb 12.6 (12-17) 03/25/16 13:09 Hct 40.4 % (35.5-45.6) 03/29/16 04:24 POC Hct 37 (38-51) L 03/25/16 13:09 MCV 111 fl (84-94) H 03/29/16 04:24 MCH 36 pg (28-32) H 03/29/16 04:24 MCHC 32 % (32-34) 03/29/16 04:24 RDW 13.4 % (13.2-15.2) 03/29/16 04:24 Plt Count 211 K/mm3 (140-440) 03/29/16 04:24 Lymph % (Auto) 27.9 % (13.4-35.0) 03/23/16 07:01 [place] % (Auto) 8.4 % (0.0-7.3) H 03/23/16 07:01 Eos % (Auto) 3.9 % (0.0-4.3) 03/23/16 07:01 Baso % (Auto) 0.8 % (0.0-1.8) 03/23/16 07:01 Lymph # 1.8 K/mm3 (1.2-5.4) 03/23/16 07:01 [place] # 0.5 K/mm3 (0.0-0.8) 03/23/16 07:01 Eos # 0.3 K/mm3 (0.0-0.4) 03/23/16 07:01 Baso # 0.1 K/mm3 (0.0-0.1) 03/23/16 07:01 Seg Neutrophils % 59.0 % (40.0-70.0) 03/23/16 07:01 Seg Neutrophils # 3.8 K/mm3 (1.8-7.7) 03/23/16 07:01 POC Sodium 142 mmol/L (138-146) 03/25/16 13:09 POC Potassium 4.1 (3.5-4.9) 03/25/16 13:09 POC Chloride 108 (98-109) 03/25/16 13:09 Sodium 144 mmol/L (137-145) 03/29/16 04:24 Potassium 4.4 mmol/L (3.6-5.0) 03/29/16 04:24 Chloride 109.2 mmol/L (98-107) H 03/29/16 04:24 Carbon Dioxide 22 mmol/L (22-30) 03/29/16 04:24 Anion Gap 17 mmol/L 03/29/16 04:24 POC BUN 21 mg/dl (8-26) 03/25/16 13:09 BUN 22 mg/dL (9-20) H 03/29/16 04:24 Creatinine 2.3 mg/dL (0.8-1.5) H 03/29/16 04:24 Estimated GFR 35 ml/min 03/29/16 04:24 BUN/Creatinine Ratio 9.56 % 03/29/16 04:24 Glucose 123 mg/dL (75-100) H 03/29/16 04:24 POC Glucose 85 (70-105) 03/25/16 13:09 Lactic Acid 1.3 mmol/L (0.7-2.0) 03/21/16 22:06 Calcium 8.4 mg/dL (8.4-10.2) 03/29/16 04:24 Total Bilirubin 0.4 mg/dL (0.1-1.2) 03/21/16 22:03 AST 30 units/L (5-40) 03/21/16 22:03 ALT 16 units/L (7-56) 03/21/16 22:03 Alkaline Phosphatase 144 units/L (35-129) H 03/21/16 22:03 Total Creatine Kinase 192 units/L (55-170) H 03/21/16 21:46 Total Protein 6.6 g/dL (6.3-8.2) 03/21/16 22:03 Albumin 2.6 g/dL (3.9-5) L 03/21/16 22:03 Albumin/Globulin Ratio 0.7 % 03/21/16 22:03
--- NOTE | 2016-03-29 16:34 | Progress Note ---
Subjective Narrative: C/O abd pain a little distesnded, no Bms yet K is OK will start MOM KUB Objective Vital Signs - 12hr 03/29/16 03/29/16 08:00 14:48 Temperature 98.4 F 98.5 F Pulse Rate [ 98 H 86 Apical] Respiratory 18 18 Rate Blood Pressure 144/98 115/82 [Right Arm] O2 Sat by Pulse 97 96 Oximetry - Labs 03/29/16 04:24 03/29/16 04:24 Diabetes panel 03/29/16 Range/Units 04:24 Sodium 144 (137-145) mmol/L Potassium 4.4 (3.6-5.0) mmol/L Chloride 109.2 H (98-107) mmol/L Carbon Dioxide 22 (22-30) mmol/L BUN 22 H (9-20) mg/dL Creatinine 2.3 H (0.8-1.5) mg/dL Glucose 123 H (75-100) mg/dL Calcium 8.4 (8.4-10.2) mg/dL Calcium panel 03/29/16 Range/Units 04:24 Calcium 8.4 (8.4-10.2) mg/dL Pituitary panel 03/29/16 Range/Units 04:24 Sodium 144 (137-145) mmol/L Potassium 4.4 (3.6-5.0) mmol/L Chloride 109.2 H (98-107) mmol/L Carbon Dioxide 22 (22-30) mmol/L BUN 22 H (9-20) mg/dL Creatinine 2.3 H (0.8-1.5) mg/dL Glucose 123 H (75-100) mg/dL Calcium 8.4 (8.4-10.2) mg/dL Adrenal panel 03/29/16 Range/Units 04:24 Sodium 144 (137-145) mmol/L Potassium 4.4 (3.6-5.0) mmol/L Chloride 109.2 H (98-107) mmol/L Carbon Dioxide 22 (22-30) mmol/L BUN 22 H (9-20) mg/dL Creatinine 2.3 H (0.8-1.5) mg/dL Glucose 123 H (75-100) mg/dL Calcium 8.4 (8.4-10.2) mg/dL
[2016-03-29] MEDS ORDERED: MILK OF MAGNESIA PO ONE (17:31)
[2016-03-29] MEDS: REMERON PO SCH (22:12)
[2016-03-30] MEDS: DILAUDID IV PRN (06:27)
--- NOTE | 2016-03-30 08:21 | Progress Note ---
Assessment and Plan Assessment and plan: Recurrence of rectal prolapse. s/p surgery, colostomy on by Dr. alvarado. Start Percocet 5/325 mg, 2 pills every 6 hours when necessary for pain. We'll discontinue Dilaudid. . Chronic CHF, systolic, stable. No acute exacerbation. No shortness of breath. HIV. Continue HAART Chronic kidney disease creatinine is at baseline. History of CVA with right hemiplegia and aphasia.. Seizure disorder. Continue keppra Full code status Disposition. Likely d/c to SNF in few days History Interval history: He is post op day #5 surgery for prolapsed rectum, Still having abdominal pain, started on diet, Has not had a bowel movement yet, but passes flatus Hospitalist Physical - Physical exam Narrative exam: Gen appearance: Not in acute distress, HEENT: Normocephalic,atraumatic Neck : supple, no JVD Lungs: Clear to auscultation bilaterally, no crackles or wheezes. Heart : S1 and S2 regular, tachy, no murmurs rubs or gallop, Abdomen: soft, tender, surgical wound covered with dressing, colostomy, non- distended, bowel sounds present Extremities: No edema, no clubbing or cyanosis, Neuro :awake alert oriented 3, right hemiplegia from previous stroke Psych :appropriate mood - Constitutional Vitals: Temp Pulse Resp BP Pulse Ox 98.7 F 94 H 18 91/75 95 03/30/16 07:15 03/30/16 07:15 03/30/16 07:15 03/30/16 07:15 03/30/16 07:15 Results - Labs CBC & Chem 7: 03/29/16 04:24 03/29/16 04:24 Labs: Laboratory Last Values WBC 11.4 K/mm3 (4.5-11.0) H 03/29/16 04:24 RBC 3.63 M/mm3 (3.65-5.03) L 03/29/16 04:24 Hgb 12.9 gm/dl (11.8-15.2) 03/29/16 04:24 POC Hgb 12.6 (12-17) 03/25/16 13:09 Hct 40.4 % (35.5-45.6) 03/29/16 04:24 POC Hct 37 (38-51) L 03/25/16 13:09 MCV 111 fl (84-94) H 03/29/16 04:24 MCH 36 pg (28-32) H 03/29/16 04:24 MCHC 32 % (32-34) 03/29/16 04:24 RDW 13.4 % (13.2-15.2) 03/29/16 04:24 Plt Count 211 K/mm3 (140-440) 03/29/16 04:24 Lymph % (Auto) 27.9 % (13.4-35.0) 03/23/16 07:01 [place] % (Auto) 8.4 % (0.0-7.3) H 03/23/16 07:01 Eos % (Auto) 3.9 % (0.0-4.3) 03/23/16 07:01 Baso % (Auto) 0.8 % (0.0-1.8) 03/23/16 07:01 Lymph # 1.8 K/mm3 (1.2-5.4) 03/23/16 07:01 [place] # 0.5 K/mm3 (0.0-0.8) 03/23/16 07:01 Eos # 0.3 K/mm3 (0.0-0.4) 03/23/16 07:01 Baso # 0.1 K/mm3 (0.0-0.1) 03/23/16 07:01 Seg Neutrophils % 59.0 % (40.0-70.0) 03/23/16 07:01 Seg Neutrophils # 3.8 K/mm3 (1.8-7.7) 03/23/16 07:01 POC Sodium 142 mmol/L (138-146) 03/25/16 13:09 POC Potassium 4.1 (3.5-4.9) 03/25/16 13:09 POC Chloride 108 (98-109) 03/25/16 13:09 Sodium 144 mmol/L (137-145) 03/29/16 04:24 Potassium 4.4 mmol/L (3.6-5.0) 03/29/16 04:24 Chloride 109.2 mmol/L (98-107) H 03/29/16 04:24 Carbon Dioxide 22 mmol/L (22-30) 03/29/16 04:24 Anion Gap 17 mmol/L 03/29/16 04:24 POC BUN 21 mg/dl (8-26) 03/25/16 13:09 BUN 22 mg/dL (9-20) H 03/29/16 04:24 Creatinine 2.3 mg/dL (0.8-1.5) H 03/29/16 04:24 Estimated GFR 35 ml/min 03/29/16 04:24 BUN/Creatinine Ratio 9.56 % 03/29/16 04:24 Glucose 123 mg/dL (75-100) H 03/29/16 04:24 POC Glucose 85 (70-105) 03/25/16 13:09 Lactic Acid 1.3 mmol/L (0.7-2.0) 03/21/16 22:06 Calcium 8.4 mg/dL (8.4-10.2) 03/29/16 04:24 Total Bilirubin 0.4 mg/dL (0.1-1.2) 03/21/16 22:03 AST 30 units/L (5-40) 03/21/16 22:03 ALT 16 units/L (7-56) 03/21/16 22:03 Alkaline Phosphatase 144 units/L (35-129) H 03/21/16 22:03 Total Creatine Kinase 192 units/L (55-170) H 03/21/16 21:46 Total Protein 6.6 g/dL (6.3-8.2) 03/21/16 22:03 Albumin 2.6 g/dL (3.9-5) L 03/21/16 22:03 Albumin/Globulin Ratio 0.7 % 03/21/16 22:03
[2016-03-30] MEDS: FEOSOL PO SCH (10:00)
[2016-03-30] MEDS: NORVASC PO SCH (10:00)
[2016-03-30] MEDS: COZAAR PO SCH (10:00)
[2016-03-30] MEDS: SODIUM BICARBONATE PO SCH ×2 (10:00→23:42)
[2016-03-30] MEDS: ZIAGEN PO SCH (10:00)
[2016-03-30] MEDS: THERAGRAN Tab PO SCH (10:00)
[2016-03-30] MEDS ORDERED: PERCOCET 5/325 PO PRN (11:27)
--- NOTE | 2016-03-30 12:18 | XRay Report ---
KUB: Postoperative distention. There is marked gaseous distention of the stomach as well as multiple small bowel loops and what may represent increased distention of the ascending colon. No free air identified. A small amount of contrast in the decompressed descending colon. Surgical closure anca over the midline. IMPRESSIONS: Nonspecific gaseous distention of stomach and bowel consistent with ileus.
[2016-03-30] MEDS: NORMODYNE PO SCH ×2 (14:00→23:41)
[2016-03-30] MEDS: HABITROL TD SCH (14:00)
[2016-03-30] MEDS: KEPPRA PO SCH ×2 (14:00→23:42)
[2016-03-30] MEDS: LOVENOX SUB-Q SCH (14:00)
[2016-03-30] MEDS: SUSTIVA PO SCH (14:00)
[2016-03-30] MEDS: EPIVIR PO SCH (14:00)
[2016-03-30] MEDS: D5/0.45NS 1,000 ML IV SCH (21:01)
[2016-03-30] MEDS: PERCOCET 5/325 PO PRN (23:40)
[2016-03-30] MEDS: REMERON PO SCH (23:42)
--- NOTE | 2016-03-31 09:15 | Progress Note ---
Subjective Narrative: seen yesterday colostomy with sanguinous material , no feces , KUB showed Ileus , given MOM , Pt had a huge BM , Talked to Pelon Dai Pt can be discharged , to a halfway , RN in [place] to call me in a week started on soft diet , Objective Vital Signs - 12hr 03/30/16 03/30/16 03/30/16 21:29 22:00 23:40 Temperature 99.4 F Pulse Rate [ Apical] Pulse Rate [ 77 Right Radial] Respiratory 20 20 Rate Respiratory 20 Rate [Chest] Blood Pressure Blood Pressure 142/94 [Right Arm] O2 Sat by Pulse 97 Oximetry 03/30/16 03/31/16 03/31/16 23:41 00:40 01:22 Temperature 98.4 F Pulse Rate [ 98 H Apical] Pulse Rate [ Right Radial] Respiratory 18 20 Rate Respiratory Rate [Chest] Blood Pressure 142/94 Blood Pressure 152/99 [Right Arm] O2 Sat by Pulse 98 Oximetry 03/31/16 05:59 Temperature 98.4 F Pulse Rate [ 98 H Apical] Pulse Rate [ Right Radial] Respiratory 20 Rate Respiratory Rate [Chest] Blood Pressure Blood Pressure 141/99 [Right Arm] O2 Sat by Pulse 94 Oximetry - Labs 03/29/16 04:24 03/29/16 04:24
--- NOTE | 2016-03-31 09:17 | Discharge Summary ---
Providers - Providers Date of Admission: 03/21/16 23:53 Date of discharge: 03/31/16 Attending physician: CHRISTIANE CRUZ 03/22/16 09:22 Consult to Physician [CONS] Routine Consulting Provider: GREG ROBBINS Reason For Exam: Rectal Prolapse Place consult to:: dr. 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 Robbins on 03/25/16 Hospital course: Patient is 60 yo with HIV, stroke,aphasia, rectal prolapse. Patient was just discharged to SNF , but sent back because of recurrence of rectal prolapse. he was therefore admitted and Surgeon consulted. He had exploratory laparotomy, repair of rectal prolapse and colostomy done by Dr. Felix on 03/25/16. Post-op he improved slowly.He passed flatus, then had bowel movement. I discussed with Dr. Robbins. he recommended discharge, so patient was discharged to SNF on . Total time spent on discharge, 35 mins. Disposition: DC/TX SNF W [facility] CERT - Discharge Diagnoses (1) Rectal prolapse Status: Acute Comment: s/p surgery (2) Colostomy present Status: Acute (3) Chronic systolic CHF (congestive heart failure) Status: Chronic (4) HIV disease Status: Chronic (5) Hypertension Status: Chronic Qualifiers: Hypertension type: essential hypertension Qualified Code(s): I10 - Essential (primary) hypertension (6) Seizure disorder Status: Chronic (7) CKD (chronic kidney disease) Status: Chronic Qualifiers: Chronic kidney disease stage: stage 3 (moderate) Qualified Code(s): N18.3 - Chronic kidney disease, stage 3 (moderate) (8) History of stroke Status: Chronic Core Measure Documentation - Palliative Care Palliative Care/ Comfort Measures: Not Applicable - Core Measures Any of the following diagnoses?: heart failure - Heart Failure Discharge Requirements SURYA/ARB for LVSD if EF <40%: Yes Beta chhaya at discharge: Yes Exam - Physical Exam Narrative exam: Gen appearance: Not in acute distress, HEENT: Normocephalic,atraumatic Neck : supple, no JVD Lungs: Clear to auscultation bilaterally, no crackles or wheezes. Heart : S1 and S2 regular, tachy, no murmurs rubs or gallop, Abdomen: soft, tender, surgical wound covered with dressing, colostomy, non- distended, bowel sounds present Extremities: No edema, no clubbing or cyanosis, Neuro :awake alert oriented 3, right hemiplegia from previous stroke Psych :appropriate mood - Constitutional Vitals: Temp Pulse Resp BP Pulse Ox 99.7 F H 95 H 20 137/100 94 03/31/16 08:00 03/31/16 08:00 03/31/16 08:00 03/31/16 08:00 03/31/16 08:00 Plan Activity: advance as tolerated Diet: other (GI soft diet, low Sodium) Additional Instructions: 1.Follow up with Dr. Robbins in 1 week. half-way to call Dr. Robbins. 2.Abdominal wound anca to be removed in 1 week. 3.To be seen by Physician at SNF in 3-5 days Follow up with: PRIMARY CARE, [Primary Care Provider] - 3-5 Days Prescriptions: amLODIPine [Norvasc] 10 mg PO DAILY #30 tablet levETIRAcetam [Keppra TAB] 500 mg PO BID #60 tablet Losartan [Cozaar] 25 mg PO QDAY #30 tablet
[2016-03-31 15:26] LABS: Hematocrit 38.5 % (35.5-45.6); Hemoglobin 12.3 gm/dl (11.8-15.2); Mean Corpuscular HGB Conc 32 % (32-34); Mean Corpuscular Hemoglobin 36 pg (28-32); Mean Corpuscular Volume 113 fl (84-94); Platelet Count 240 K/mm3 (140-440); Red Blood Count 3.42 M/mm3 (3.65-5.03); Red Cell Distribution Width 13.6 % (13.2-15.2); White Blood Count 8.4 K/mm3 (4.5-11.0)
[2016-03-31] MEDS: COZAAR PO SCH (15:28)
[2016-03-31] MEDS: HABITROL TD SCH (15:29)
[2016-03-31] MEDS: FEOSOL PO SCH (15:29)
[2016-03-31] MEDS: KEPPRA PO SCH (15:29)
[2016-03-31] MEDS: EPIVIR PO SCH (15:29)
[2016-03-31] MEDS: LOVENOX SUB-Q SCH (15:30)
[2016-03-31] MEDS: NORMODYNE PO SCH (15:30)
[2016-03-31] MEDS: NORVASC PO SCH (15:30)
[2016-03-31] MEDS: SODIUM BICARBONATE PO SCH (15:31)
[2016-03-31] MEDS: SUSTIVA PO SCH (15:31)
[2016-03-31] MEDS: THERAGRAN Tab PO SCH (15:31)
[2016-03-31] MEDS: ZIAGEN PO SCH (15:32)
[2016-03-31] MEDS: PERCOCET 5/325 PO PRN (15:32)
[2016-03-31 15:33] VITALS: BP 123/86
[2016-03-31 15:43] LABS: BUN/Creatinine Ratio 11.9; Calcium 8.2 mg/dL (8.4-10.2); Chloride 108.7 mmol/L (98-107); Potassium 4.7 mmol/L (3.6-5.0)
--- NOTE | 2016-04-05 09:14 | Query- General ---
Dear Date:_04/05/16 [place]/CDS:[place]/ Charles Foreman Phone#:_[phone] Exercise your independent professional judgment when responding to this query. Questions asked do not imply a particular answer is desired or expected. We greatly appreciate your clarification on this issue. Clinical Documentation States: 60 Y/O male admitted on 03/21/16 with History of HIV, HTN, CKD, CHF, CVA with Rt. hemiplegia and rectal prolapse presents with recurrence of rectal prolapse. Patient has history of HIV, Continue retrovirals Clinical Findings Show (include reference to source document): Given the above clinical scenario can you please provide an appropriate diagnosis based on your knowledge of the patient: PHYSICIAN RESPONSE: [ x ] HIV Disease [ ] AIDS [ ] Asymptomatic HIV [ ] Other [ ] Unable to determine Present on Admission: [x ] Yes (Y) [ ] Clinically undeterminable (W) [ ]No(N) Please also document response in your Progress Notes and/or Discharge Summary and indicate if the condition was present on admission. MTDD
== END 2016-03-31 17:45 | DRG 329 ==
LOC: ED 17:41 → 3A 23:53 → 2B-SURG 03-25 16:03
PROVIDERS: ADMIT Internal Medicine; ATTEND Internal Medicine
PROC: 0DQP0ZZ Repair Rectum, Open Approach (ICD-10-PCS; principal; 2016-03-25)
PROC: 0DBM0ZZ Excision of Descending Colon, Open Approach (ICD-10-PCS; 2016-03-25)
PROC: 0DBN0ZZ Excision of Sigmoid Colon, Open Approach (ICD-10-PCS; 2016-03-25)
PROC: 0D1M0Z4 Bypass Descending Colon to Cutaneous, Open Approach (ICD-10-PCS; 2016-03-25)
DX: K62.3 Rectal prolapse (principal); B20 Human immunodeficiency virus [HIV] disease; G81.91 Hemiplegia, unspecified affecting right dominant side; I50.22 Chronic systolic (congestive) heart failure; I13.0 Hypertensive heart and chronic kidney disease with heart failure and stage 1 through stage 4 chronic kidney disease, or unspecified chronic kidney disease; N18.9 Chronic kidney disease, unspecified; G40.909 Epilepsy, unspecified, not intractable, without status epilepticus; F17.200 Nicotine dependence, unspecified, uncomplicated; Z88.2 Allergy status to sulfonamides; Z86.73 Personal history of transient ischemic attack (TIA), and cerebral infarction without residual deficits; Z88.6 Allergy status to analgesic agent; Z82.49 Family history of ischemic heart disease and other diseases of the circulatory system
CPT/HCPCS: 36415; 74000; 74176; 74270; 80048; 80053; 82140; 82550; 82803; 83690; 84132; 85025; 85027; 85610; 85730; 86850; 86900; 86901; 88307; 93005; 93010; 94760; 96361; 96374; 96375; 99285; A9270-GY; J0360; J1170; J1650; J1815; J2270; J2370; J2405; J2704; J2710; J3010; J7030; J7042

== ENCOUNTER 2016-04-13 02:00 | Emergency (ER) | payer MEDICARE ==
[~2016-04-13 02:00] MED LIST: ADRENALIN ONE
--- NOTE | 2016-04-13 02:17 | Emergency Department Report ---
HPI - General Time Seen by Provider: 04/13/16 02:12 - HPI HPI: This is a 60-year-old -[place] male who presents to the emergency department by EMS from [facility] in cardiac arrest. Previous records show the patient has a history of CHF, HIV, renal insufficiency. The patient was allegedly last seen alive/baseline at about 12:30 AM this morning. EMS got to the patient at 1:30 AM and started ACLS protocol. The patient was intubated by them and received an IO and got chest compressions, bag valve ventilation and received 2 rounds of epinephrine and one of sodium bicarbonate. He was in asystole rhythm the entire time. The patient arrived pulseless and in asystole as well. ED Past Medical Hx - Past Medical History Hx Hypertension: Yes Hx CVA: Yes (rt sided weakness; aphasic) Hx Congestive Heart Failure: Yes Hx Diabetes: Yes Hx Renal Disease: Yes (not on dialysis--has a fistula to left arm) Hx Sickle Cell Disease: No Hx Asthma: No Hx COPD: No Hx HIV: Yes - Surgical History Additional Surgical History: dialysis shunt to left upper arm; colostomy bag left lower quadrant of abd 03/25/16 - Social History Smoking Status: Former Smoker - Medications Home Medications: Home Medications Medication Instructions Recorded Confirmed Last Taken Type Abacavir Sulfate/Lamivudine 1 each PO DAILY 03/16/16 04/01/16 03/16/16 History [Epzicom TAB] AtorvaSTATin [Lipitor] 40 mg PO DAILY 03/16/16 04/01/16 03/16/16 History Efavirenz [Sustiva] 600 mg PO DAILY 03/16/16 04/01/16 03/16/16 History Mirtazapine 30 mg PO DAILY 03/16/16 04/01/16 03/16/16 History Multivitamin with Iron [Tab-A-[place] 1 each PO DAILY 03/16/16 04/01/16 03/16/16 History with Iron] Quetiapine Fumarate [QUEtiapine 400 mg PO QDAY 03/16/16 04/01/16 03/16/16 History Fumarate] Labetalol [Normodyne TAB] 300 mg PO BID 03/21/16 04/01/16 Unknown History Nicotine [Habitrol] 21 mg TD DAILY 03/21/16 04/01/16 03/31/16 History Phenytoin [Dilantin] 100 mg PO Q8HR 03/21/16 04/01/16 Unknown History lamiVUDine [Epivir] 300 mg PO QDAY 03/21/16 04/01/16 Unknown History Losartan [Cozaar] 25 mg PO QDAY #30 tablet 03/31/16 04/01/16 Unknown Rx amLODIPine [Norvasc] 10 mg PO DAILY #30 tablet 03/31/16 04/01/16 Unknown Rx levETIRAcetam [Keppra TAB] 500 mg PO BID #60 tablet 03/31/16 04/01/16 Unknown Rx Aspirin [Aspirin BABY CHEW TAB] 81 mg PO DAILY 04/01/16 04/01/16 Unknown History Lisinopril [Zestril TAB] 10 mg PO DAILY 04/01/16 04/01/16 Unknown History Pravastatin Sodium [Pravastatin] 10 mg PO DAILY 04/01/16 04/01/16 Unknown History Sodium Bicarbonate 650 mg PO BID 04/01/16 04/01/16 Unknown History traMADol [Ultram 50 MG tab] 50 mg PO DAILY PRN 04/01/16 04/01/16 Unknown History Ondansetron [Zofran INJ] 4 mg IV Q3H PRN #30 vial 04/05/16 Unknown Rx ED Review of Systems ROS: Stated complaint: CARDIAC ARREST Other details as noted in HPI Comment: Unobtainable due to pts medical conditions Physical Exam - Physical Exam Physical Exam: GENERAL: Patient is ill-appearing and unresponsive. HEENT: Normocephalic. Pupils are fixed and dilated. Patient is intubated. NECK: Supple. Trachea is midline. CHEST/LUNGS: There are no spontaneous lung sounds. HEART/CARDIOVASCULAR: No spontaneous heart sounds. ABDOMEN: Abdomen is soft. Colostomy in place. SKIN: Skin is cool but dry. NEURO: Patient is unresponsive to verbal, tactile or painful stimuli and does not follow any commands. MUSCULOSKELETAL: There is no deformity. No spontaneous movement of the extremities. There was no palpable pulse to the radial or femoral regions. ED Medical Decision Making - Medical Decision Making 60-year-old male presents to the emergency department in asystole and cardiac arrest. He was last seen alive around 12:30 AM. EMS has been working on him with ACLS protocol since 1:30 AM that included intubation, IO, chest compressions and epinephrine with sodium bicarbonate. Patient presents pulseless in asystole. ACLS protocol was continued with chest compressions started immediately. He was placed on a monitor. Patient received epinephrine. Upon pulse check, the patient was still pulseless and still in asystole. He received another round of epinephrine. On the next pulse check the patient was still pulseless and in asystole. At this point the patient has been "down" for one hour and 45 minutes and has been receiving ACLS resuscitation attempts for 45 minutes. The ultrasound was placed over the patient's heart and there was no squeeze or movement. Time of was called for 2:07 AM. - Differential Diagnosis cardiac arrest Critical Care Time: Yes Critical care time in (mins) excluding proc time.: 10 Critical care attestation.: If time is entered above; I have spent that time in minutes in the direct care of this critically ill patient, excluding procedure time. Critical care time was spent on this patient and supervising ACLS protocol, cardiac ultrasound and calling time of . Critical Care Time: 10 mins ED Disposition Clinical Impression: Cardiac arrest, Asystole Disposition: Is pt being admited?: No Time of Disposition: 02:18
== END 2016-04-13 08:30 ==
LOC: ED 02:00
DX: I46.9 Cardiac arrest, cause unspecified (principal); I10 Essential (primary) hypertension; I50.9 Heart failure, unspecified; E11.9 Type 2 diabetes mellitus without complications; N28.9 Disorder of kidney and ureter, unspecified; Z87.891 Personal history of nicotine dependence
CPT/HCPCS: 92950; 99285; J0171